=== PATIENT | female | born 1945 | race Hispanic/Latino ===

== ENCOUNTER 2018-10-23 17:45 | Observation (INO) | payer MEDICARE, OTHER ==
[2018-10-23] MEDS ORDERED: Ondansetron PF 4 MG/2 ML Vial ONE ×2 (18:44→20:17)
[2018-10-23] MEDS ORDERED: Morphine 4 MG/ML VIAL ONE (18:44)
[2018-10-23] MEDS ORDERED: Benzocaine 20% Spray 60 ML CAN ONE (19:03)
--- NOTE | 2018-10-23 19:59 | RAD ---
PORTABLE CHEST ONE VIEW: 10/23/2018 7:27 p.m. HISTORY: Periumbilical pain. FINDINGS: The heart size is normal. There is elevation of the right hemidiaphragm. No focal areas of consolid ation, pneumothoraces, or pleural effusions are seen. A nasogastric tube can be traced into the stom ach, with the tip directed laterally, in the projection of the gastric cardia. POS: [facility]
[2018-10-23] MEDS ORDERED: Ondansetron ODT 4 MG TAB PO PRN (21:07)
[2018-10-23] MEDS ORDERED: Ondansetron PF 4 MG/2 ML Vial IVP PRN (21:07)
[2018-10-23] MEDS ORDERED: Acetaminophen 325 MG TAB PO PRN (21:07)
[2018-10-23] MEDS ORDERED: Morphine 4 MG/ML VIAL SLOW IVP PRN (21:09)
[2018-10-23 21:19] VITALS: BMI 25.4
[2018-10-23] MEDS: Sodium Chloride 0.9% 1,000 ML IV SCH (21:30)
[2018-10-23] MEDS: Lactated Ringer's 1,000 ML IV SCH (21:46)
[2018-10-24 04:42] LABS: #Lymphocytes 1.8 thou/uL (1.20-3.40); #Monocytes 0.6 thou/uL (0.11-0.59); #Neutrophils 7.9 thou/uL (1.40-6.50); %Basophils 0.4 % (0.0-1.0); %Eosinophils 0.3 % (0.0-10.0); %Lymphocytes 17.3 % (21.0-51.0); %Neutrophils 75.9 % (42.0-75.0); Hemoglobin 12.7 g/dL (12.0-16.0); Mean Corpuscular HGB CONC 31.8 g/dL (32.0-36.0); Mean Corpuscular Hemoglobin 28.5 pg (27.0-31.0); Mean Corpuscular Volume 89.7 fL (78.0-98.0); Mean Platelet Volume 8.3 fL (7.4-10.4); Platelet Count 149 thou/uL (130-400); RBC Distribution Width 12.5 % (11.5-14.5); Red Blood Cell (RBC) Count 4.46 mill/uL (4.20-5.40); White Blood Cell (WBC) Count 10.4 thou/uL (4.8-10.8)
[2018-10-24 05:01] LABS: Anion Gap 11 mmol/L (10-20); BUN (Urea Nitrogen) 10 mg/dL (9.8-20.1); Calc. Creatinine Clearance 81 mL/min (70-130); Calcium 8.4 mg/dL (7.8-10.44); Carbon Dioxide 25 mmol/L (23-31); Chloride 103 mmol/L (98-107); Estimated GFR-MDRD 87; Glucose 113 mg/dL (83-110); Potassium 4.1 mmol/L (3.5-5.1); Sodium 135 mmol/L (136-145)
[2018-10-24] MEDS: Lactated Ringer's 1,000 ML IV SCH (06:23)
--- NOTE | 2018-10-24 07:09 | HP ---
PRIMARY CARE DOCTOR: Jozef Hale MD CODE STATUS: Full code. TIME OF EVALUATION: 8:20 p.m. CHIEF COMPLAINT: Abdominal pain. HISTORY OF PRESENT ILLNESS: This is a 73-year-old female patient with past medical history of multiple abdominal surgeries, GERD, and COPD, came to the hospital after having severe abdominal pain that was started since 7 a.m. and has gradually been getting worse, very severe during the day. The patient did not pass stools. The patient also had associated severe nausea and bilious vomiting. No clear triggers, only alleviated by medical treatment. REVIEW OF SYSTEMS: CONSTITUTIONAL: No fever, chills, or generalized weakness. RESPIRATORY: No cough, sputum production, or shortness of breath. CARDIOVASCULAR: No chest pain or palpitation. GASTROINTESTINAL: The patient has nausea, vomiting. No diarrhea. Not passing stools. Abdominal pain. MANAGEMENT MANAGER: No dizziness, headache, or feeling lightheaded. GENITOURINARY: No burning on urination. EXTREMITIES: No leg swelling. All other systems were reviewed and negative except for the findings mentioned above. PAST MEDICAL HISTORY: As mentioned in HPI. FAMILY HISTORY: Reviewed and non contributory for current presentation. PAST SURGICAL HISTORY: Appendectomy, cholecystectomy, and hysterectomy. SOCIAL HISTORY: No alcohol, no drugs. The patient is a former tobacco user. KNOWN ALLERGIES: To amoxicillin and Bactrim. REPORTED MEDICATIONS: 1. Prilosec. 2. Iron. 3. Albuterol sulfate. PHYSICAL EXAMINATION: VITAL SIGNS: On presentation, blood pressure 147/64, heart rate 56, respiratory rate was 14, temperature 98.1, oxygen saturation was 95% on room air. GENERAL APPEARANCE: The patient is alert, oriented, not in acute distress. HEENT: Eyes, normal conjunctivae. Moist oral mucosa. Anicteric. No JVD. RESPIRATORY: Bilateral air entry. No rales. No wheezes. Symmetric expansion. CARDIOVASCULAR: Normal rate, regular rhythm. No murmurs, no gallops. No edema. ABDOMEN: Soft, mildly distended. The patient has tenderness. MUSCULOSKELETAL: Baseline range of motion and strength. No tenderness. SKIN: Warm and intact. No pallor. No rash. No redness. Peripheral pulses are present. Capillary refill seems to be intact. NEUROLOGIC: No evidence of any new focal weakness. Baseline speech. Cranial nerves seems to be intact. PSYCHIATRIC: The patient is in good mood. No anxiety. Optimal judgment. IMAGING STUDIES: Chest x-ray was reviewed. The patient's heart size is normal with elevation of the right hemidiaphragm. No pneumonia or effusion. LABORATORY DATA: Labs were reviewed. The patient has white count of 7.1, hemoglobin 13, MCV 86, and platelet count 165. Chemistry; sodium 133, potassium 4.0, chloride 100, carbon dioxide 25, anion gap 12, BUN 11, creatinine 0.6, GFR 84, glucose 107. Magnesium was not done. Lactic acid 1.1. Troponin was negative. LFTs were negative. CT of abdomen and pelvis was done. The patient has partial small bowel obstruction with transition point seen within the central pelvis, material is seen within the loop of small bowel, greatest in loop of small bowel just proximal to the transition point. Evidence of cirrhosis. The portal veins as well as the splenic veins are patent. A small cyst with adjacent coarse cortical-based calcifications in superior pole of left kidney with area of scarring. A small amount of free fluid in the abdomen and pelvis. ASSESSMENT AND PLAN: The patient was placed in the hospital with following medical problems; 1. Small bowel obstruction as seen on the CAT scan maybe causing continuous nausea and bilious vomiting. The patient has received NG-tube. We will continue to treat symptomatically, our goal is to treat the patient medically. Hopefully, no need for any surgical intervention is warranted. 2. Severe abdominal pain, needing opioid medication for optimal control, will treat accordingly. 3. Urinary tract infection. It seems urinalysis is positive. We will treat the patient with Rocephin per urine cultures. 4. Deep venous thrombosis prophylaxis. 5. Intractable nausea and vomiting, treated with Zofran IV. Job ID: [id number] [facility]
[2018-10-24] MEDS: Enoxaparin Sodium 40 MG/0.4 ML SYRINGE SC SCH (08:37)
[2018-10-24] MEDS: Sodium Chloride 0.9% 1,000 ML IV SCH (08:38)
--- NOTE | 2018-10-24 10:24 | RAD ---
ABDOMEN 2 VIEWS: Date: 10/24/18 HISTORY: Small bowel follow up. COMPARISON: CT abdomen and pelvis prior day. FINDINGS: Satisfactory location of enteric tube. No dilated loops of large or small bowel. No free air under th e left hemidiaphragm on the upright view. Right hemidiaphragm is not well interrogated. Moderate degenerative changes mid lumbar spine. IMPRESSION: No evidence for bowel obstruction. No dilated loops of large or small bowel. POS: [facility]
[2018-10-24] MEDS ORDERED: MD-Gastroview 120 ML BOT ONE (11:05)
--- NOTE | 2018-10-24 16:28 | RAD ---
HISTORY: Small bowel obstruction. GASTROGRAFIN SMALL BOWEL FOLLOW THROUGH 10/24/18 Office Clerk Assistant radiograph demonstrates an NG tube in place. There appears to be calcified density over the upp er pole of the left kidney. A moderate amount of stool is seen in the colon. No definite evidence of small bowel distention is seen. The patient was given 2 cup of the gastrografin through the NG tube. One minute image obtained follow ed by 15 minute radiograph. After 15 minutes, there is complete opacification of the small bowel. Con trast is seen in the colon even at 15 minutes. No evidence of bowel obstruction or ileus seen. The all bowel diameter is within normal limits. No evidence of small bowel distention or masses seen. IMPRESSION: Normal small bowel follow through. POS: [facility]
--- NOTE | 2018-10-24 17:22 | PDOC.PN ---
- Subjective Encounter Start Date: 10/24/18 Encounter Start Time: 09:20 Pt seen for followup re: bowel obstruction. Says she feels better. Denies abdo pain. - Objective Resuscitation Status - Order Detail: 10/23/18 21:07 Resuscitation Status Routine Resuscitation Status: FULL: Full Resuscitation MAR Reviewed: Yes Vital Signs & Weight: Vital Signs (12 hours) Temp Pulse Resp BP Pulse Ox 10/24/18 16:54 97.6 F 83 18 157/84 H 92 L 10/24/18 11:38 99.8 F H 66 18 176/77 H 95 10/24/18 07:25 98.5 F 66 18 172/76 H 94 L Weight Weight 148 lb 4.8 oz I&O: 10/23/18 10/24/18 10/25/18 06:59 06:59 06:59 Intake Total 50 117 Output Total 650 Balance -600 117 Result Diagrams: 10/24/18 04:22 10/24/18 04:22 Additional Labs: labs reviewed by me Phys Exam - Physical Examination Constitutional: NAD HEENT: moist MMs NG tube Neck: supple Respiratory: clear to auscultation bilateral Cardiovascular: RRR Gastrointestinal: soft, non-tender, positive bowel sounds Neurological: moves all 4 limbs Psychiatric: normal affect Dx/Plan (1) Bowel obstruction Code(s): K56.609 - UNSP INTESTNL OBST, UNSP TO PARTIAL VERSUS COMPLETE OBST Status: Acute Comment: Improving (2) Hyponatremia Code(s): E87.1 - HYPO-OSMOLALITY AND HYPONATREMIA Status: Acute Comment: mild, likely asymptomatic. Recheck sodium level. (3) GERD (gastroesophageal reflux disease) Code(s): K21.9 - GASTRO-ESOPHAGEAL REFLUX DISEASE WITHOUT ESOPHAGITIS Status: Chronic Comment: stable (4) COPD (chronic obstructive pulmonary disease) Status: Chronic Comment: stable - Plan * . Review of Systems - Review of Systems Cardiovascular: negative: chest pain, palpitations, orthopnea, paroxysmal nocturnal dyspnea, edema, light headedness Gastrointestinal: Constipation. negative: Nausea, Vomiting, Abdominal Pain, Diarrhea, Melena, Hematochezia - Medications/Allergies Allergies/Adverse Reactions: Allergies Allergy/AdvReac Type Severity Reaction Status Date / Time amoxicillin Allergy Verified 10/23/18 21:45 Sulfa (Sulfonamide Allergy Verified 10/23/18 21:45 Antibiotics) sulfamethoxazole Allergy Verified 10/23/18 21:45 [From Bactrim] trimethoprim [From Bactrim] Allergy Verified 10/23/18 21:45 Medications: Current Medications Acetaminophen (Tylenol) 650 mg PO Q4H PRN PRN Reason: Headache/Fever/Mild Pain (1-3) Enoxaparin Sodium (Lovenox) 40 mg SC 0900 [facility] Last Admin: 10/24/18 08:37 Dose: 40 mg Sodium Chloride (Normal Saline 0.9%) 1,000 mls @ 75 mls/hr IV .[id number] [facility] Last Admin: 10/24/18 08:38 Dose: 1,000 mls Ondansetron HCl (Zofran Odt) 4 mg PO Q6H PRN PRN Reason: Nausea/Vomiting Ondansetron HCl (Zofran) 4 mg IVP Q6H PRN PRN Reason: Nausea/Vomiting
[2018-10-24] MEDS ORDERED: Acetaminophen 500 MG TAB PO PRN (18:26)
[2018-10-24] MEDS ORDERED: PROVENTIL INHALER 6.7 G (200 INHALATIONS) INH PRN (18:27)
--- NOTE | 2018-10-24 19:16 | HP ---
HISTORY OF PRESENT ILLNESS: Ms. Garcia is a 73-year-old female, who lives in [place] with her . She developed acute onset of central abdominal pain yesterday, sharp in nature. She had some nausea and vomiting after NG tube was attempted. She had a CAT scan suggesting a partial bowel obstruction. She is admitted with an NG tube. This morning, when consulted, I ordered repeat abdominal x-rays, which were nonspecific. Small-bowel follow-through obtained revealed rapid transit of Gastrografin into the small bowel and colon. She has had multiple bowel movements. NG tube has put out 250 mL overnight and 400 mL this morning. ALLERGIES: AMOXICILLIN AND BACTRIM. SOCIAL HISTORY: Tobacco, none for 20 years. Alcohol, none. 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 MEDICATIONS: 1. Tylenol. 2. Albuterol. 3. Omeprazole. 4. Ferrous sulfate. PAST SURGICAL HISTORY: Total abdominal hysterectomy, bilateral salpingo-oophorectomy, prior to that, appendectomy, open cholecystectomy. PAST MEDICAL HISTORY: Asthma. REVIEW OF SYSTEMS: Ten-point noncontributory. PHYSICAL EXAMINATION: GENERAL: NG tube in place. She is in no distress. She is alert and oriented. VITAL SIGNS: 5 feet 4 inches, 148 pounds, 25 BMI, 97.6, 83, 157/84. HEAD, EARS, EYES, NOSE, AND THROAT: Unremarkable. LUNGS: Clear to auscultation. CARDIAC: Regular rate and rhythm without murmur or gallop. ABDOMEN: Soft, nondistended, non-tympanitic. Bowel sounds present. NG tube in place. Recent bowel movements and flatus. EXTREMITIES: No edema. ASSESSMENT AND PLAN: Resolved bowel obstruction, partial, possibly NG tube removed. Diet can be advanced. She can be discharged home tomorrow. She is tolerating her diet. Follow up as needed. She has never had a colonoscopy at age 73, this could have been considered as an outpatient. Job ID: [id number]
[2018-10-25 04:26] LABS: #Eosinphils 0.2 thou/uL (0.0-0.7); #Lymphocytes 2.2 thou/uL (1.20-3.40); #Monocytes 0.5 thou/uL (0.11-0.59); #Neutrophils 3.1 thou/uL (1.40-6.50); %Basophils 0.8 % (0.0-1.0); %Eosinophils 2.7 % (0.0-10.0); %Lymphocytes 36.5 % (21.0-51.0); %Monocytes 7.9 % (0.0-10.0); %Neutrophils 52.1 % (42.0-75.0); Hemoglobin 12.1 g/dL (12.0-16.0); Mean Corpuscular HGB CONC 32.7 g/dL (32.0-36.0); Mean Corpuscular Hemoglobin 29.1 pg (27.0-31.0); Mean Corpuscular Volume 89.1 fL (78.0-98.0); Mean Platelet Volume 8.3 fL (7.4-10.4); Platelet Count 121 thou/uL (130-400); RBC Distribution Width 12.3 % (11.5-14.5); Red Blood Cell (RBC) Count 4.16 mill/uL (4.20-5.40)
[2018-10-25 04:43] LABS: Anion Gap 11 mmol/L (10-20); BUN (Urea Nitrogen) 10 mg/dL (9.8-20.1); Calc. Creatinine Clearance 77 mL/min (70-130); Calcium 8.3 mg/dL (7.8-10.44); Carbon Dioxide 25 mmol/L (23-31); Chloride 104 mmol/L (98-107); Estimated GFR-MDRD 82; Glucose 91 mg/dL (83-110); Potassium 3.6 mmol/L (3.5-5.1); Sodium 136 mmol/L (136-145)
[2018-10-25 08:19] VITALS: TEMP 98.1
[2018-10-25] MEDS ORDERED: Polyethylene Glycol 3350 17 GM Packet PO SCH (09:00)
[2018-10-25] MEDS: Enoxaparin Sodium 40 MG/0.4 ML SYRINGE SC SCH (10:06)
[2018-10-25 11:57] VITALS: BP 171/73
--- NOTE | 2018-10-25 16:35 | DIS ---
DATE OF ADMISSION: 10/23/2018 DATE OF DISCHARGE: 10/25/2018 PRIMARY CARE PROVIDER: Dr. Hale. DISCHARGE DIAGNOSIS: Partial small bowel obstruction. CONDITION OF THE PATIENT ON THE DAY OF DISCHARGE: Stable. I assessed Ms. Garcia on the day of discharge. She denies any chest pain or shortness of breath. Vital signs are stable. S1 and S2 are heard, regular. Lungs are clear to auscultation bilaterally. CONSULTATIONS DURING THIS HOSPITALIZATION: General Surgery, Dr. Tate. DISCHARGE MEDICATIONS: 1. ProAir RespiClick p.r.n. 2. Ferrous sulfate 325 mg daily. 3. Prilosec 20 mg daily. HOSPITAL COURSE: Ms. Garcia is a pleasant 73-year-old lady, who was admitted to [facility] on October 23, 2018, for partial small-bowel obstruction. Please refer to Dr. Donald's history and physical note dated October 24, 2018, for further details. Followup abdominal x-rays on October 24 did not show evidence for bowel obstruction. She also had small bowel x-ray series, which showed normal small-bowel follow-through. She was seen by General Surgery Service and has been cleared for discharge. On the day of discharge, she was tolerating diet well. She is being discharged home in a stable condition. Many thanks for allowing me to participate in your patient's care. Please feel free to contact me with any questions or concerns. DISCHARGE DESTINATION: Home. Job ID: [id number]
== END 2018-10-25 13:45 | disposition home or self-care (01) ==
LOC: ERS 17:45 → SURG A 19:45
PROVIDERS: ADMIT Hospitalist; ATTEND Hospitalist
DX: K56.600 Partial intestinal obstruction, unspecified as to cause (principal); N39.0 Urinary tract infection, site not specified; Z88.0 Allergy status to penicillin; Z88.2 Allergy status to sulfonamides; Z79.899 Other long term (current) drug therapy
CPT/HCPCS: 71045; 74019; 74250; 80048 ×2; 85025 ×2; 96361 ×3; 96372 ×2; 96374; 96375; 96376; 99285; G0378 ×2; 36415; J1650; J2270; J2405; Q9963

== ENCOUNTER 2019-06-19 10:13 | Day surgery (SDC) | payer MEDICARE, OTHER ==
[2019-06-19 11:25] LABS: Hemoglobin 11.5 g/dL (12.0-16.0); Mean Corpuscular HGB CONC 32.5 g/dL (32.0-36.0); Mean Corpuscular Hemoglobin 25.9 pg (27.0-31.0); Mean Corpuscular Volume 79.6 fL (78.0-98.0); Mean Platelet Volume 8.7 fL (7.4-10.4); Platelet Count 155 thou/uL (130-400); RBC Distribution Width 12.4 % (11.5-14.5); Red Blood Cell (RBC) Count 4.46 mill/uL (4.20-5.40); White Blood Cell (WBC) Count 6.2 thou/uL (4.8-10.8)
[2019-06-19 11:34] LABS: Anion Gap 11 mmol/L (10-20); BUN (Urea Nitrogen) 13 mg/dL (9.8-20.1); Calc. Creatinine Clearance 0 mL/min (70-130); Calcium 8.7 mg/dL (7.8-10.44); Carbon Dioxide 25 mmol/L (23-31); Chloride 106 mmol/L (98-107); Estimated GFR-MDRD 84; Glucose 98 mg/dL (83-110); Potassium 3.7 mmol/L (3.5-5.1); Sodium 138 mmol/L (136-145)
[2019-06-19] MEDS ORDERED: Fentanyl 100 MCG/2 ML VIAL ONE (11:58)
[2019-06-19] MEDS ORDERED: Promethazine HCl 25 MG/ML VIAL ONE (15:01)
--- NOTE | 2019-06-19 18:04 | RAD ---
RIGHT WRIST TWO FLUOROSCOPIC VIEWS: Indications: Open reduction internal fixation right wrist. Intraoperative imaging. FINDINGS: Intraoperative images show fixation of the distal radius with plate and screws along the volar surfac e. POS: [facility]
--- NOTE | 2019-06-19 19:08 | OP ---
DATE OF PROCEDURE: 06/19/2019 PREOPERATIVE DIAGNOSIS: Right intra-articular distal radius fracture. POSTOPERATIVE DIAGNOSIS: Right intra-articular distal radius fracture. PROCEDURE PERFORMED: Open reduction and internal fixation of right distal radius. ANESTHESIA: General. BUSINESS OFFICE ASSISTANT: Almas. TOURNIQUET TIME: 31 minutes at 250 mmHg. IMPLANTS: Synthes 2.4 mm variable angle LCP 2 column plate. COMPLICATIONS: None. DRAINS: None. SPECIMENS: None. OUTCOME: Near-anatomic alignment. INDICATION FOR PROCEDURE: The patient is a pleasant 73-year-old lady, status post ground level fall downstairs sustaining an intra-articular distal radius fracture that is unstable. After discussion with the patient including risks and benefits, we decided to proceed with open reduction and internal fixation of this fracture. Risks and benefits have been discussed. Risks include, but are not limited to bleeding, infection, nerve injury, wrist stiffness, wrist pain, hardware failure, malunion, nonunion, and loss of limb or life. The patient appears to understand and does wish to proceed. DESCRIPTION OF PROCEDURE: The patient was brought to the operating room and a time-out performed followed by induction of general anesthesia. After general anesthesia, the patient was positioned supine on the OR table with the right upper extremity held on an armboard. Next, the limb was exsanguinated with Esmarch bandage, tourniquet inflated to 250 mmHg. Next, a volar radial skin incision was made after skin was sharply incised. Dissection was carried down between the interval of the flexor carpi radialis and brachioradialis. The digital flexors were then swept toward the midline revealing the underlying pronator quadratus. The pronator quadratus was released off the radial border of the distal radius and reflected toward the midline. Next, the fracture was identified. This was reduced manually and checked under C-arm guidance. Next, a volar plate was applied to the distal radius and held in place with a single cortical screw proximal to the fracture line. This was checked under AP and lateral C-arm guidance for appropriateness of position. Next, a total of 4 locking screws were passed through the horizontal limb of the plate capturing the distal radial fragment. At the completion of this, 2 additional cortical screws were placed distally. At the completion of this, AP and lateral C-arm images were obtained that showed acceptable alignment of the fracture and appropriate positioning of the hardware. The wound was then irrigated with bulb syringe and closed in layers with 0 Vicryl deep, followed by 2-0 Vicryl and nylon for the skin. Xeroform gauze, Webril, and fiberglass splint were applied to the arm. Tourniquet was let down with total time of 31 minutes and then the patient was transferred to recovery room in stable condition. There were no complications. She tolerated the procedure well. Job ID: [id number]
== END 2019-06-19 15:53 | disposition home or self-care (01) ==
LOC: SDC 10:13
PROVIDERS: ATTEND Orthopaedic Surgery
PROC: 0PSH04Z Reposition Right Radius with Internal Fixation Device, Open Approach (ICD-10-PCS; principal; 2019-06-19)
PROC: 3E0T3BZ Introduction of Anesthetic Agent into Peripheral Nerves and Plexi, Percutaneous Approach (ICD-10-PCS; 2019-06-19)
DX: S52.571A Other intraarticular fracture of lower end of right radius, initial encounter for closed fracture (principal); G89.18 Other acute postprocedural pain; Z87.891 Personal history of nicotine dependence; Z79.899 Other long term (current) drug therapy; Z88.0 Allergy status to penicillin; Z88.2 Allergy status to sulfonamides; W10.8XXA Fall (on) (from) other stairs and steps, initial encounter
CPT/HCPCS: 76000; 80048; 85027; 93005; 93010; J0690; J2550; J3010

== ENCOUNTER 2019-08-05 20:11 | Observation (INO) | payer MEDICARE, OTHER ==
[2019-08-05] MEDS ORDERED: Midazolam HCl 2 mg/2 ml Vial ONE (21:19)
[2019-08-05] MEDS ORDERED: PROVENTIL INHALER 6.7 G (200 INHALATIONS) INH PRN (22:19)
[2019-08-05] MEDS ORDERED: Guaifenesin DM 100-10/5 ML UDCUP PO PRN (22:19)
[2019-08-05] MEDS ORDERED: Bisacodyl 10 MG SUPP PR PRN (22:19)
[2019-08-05] MEDS ORDERED: Acetaminophen 325 MG TAB PO PRN (22:19)
[2019-08-05] MEDS ORDERED: Senokot S 8.6-50 MG TAB PO PRN (22:19)
--- NOTE | 2019-08-06 00:16 | CON ---
DATE OF CONSULTATION: 08/05/2019 REQUESTING PHYSICIAN: Dr. Juan Zapata. HISTORY OF PRESENT ILLNESS: This is a 73-year-old woman. Patient was seen in the emergency room following an insidious onset abdominal pain started approximately at noon today. Patient described the pain as crampy without any radiation. She rated her pain at the time 9/10. She has self-induced vomiting to try to get relief. She was able to expel a clear gastric effluent. She did have diarrhea this morning. She was evaluated with a CT scan of the abdomen and pelvis, which suggested low-grade small-bowel obstruction, for which patient was transferred to [facility]. At the time of my evaluation, there had been approximately 6 hours since she was initially evaluated. At the time of my evaluation, she denies any abdominal pain, nausea, or vomiting. She denies any fevers or chills. She does not recall the last time she passed flatus. PAST MEDICAL HISTORY: Pertinent for asthma and partial small-bowel obstruction in October of 2018 without any surgical intervention. PAST SURGICAL HISTORY: Pertinent for , total abdominal hysterectomy with bilateral salpingo-oophorectomy, and open cholecystectomy. SOCIAL HISTORY: Patient has not smoked over 20 years now. Prior to that, she had approximately 10 pack cigarette smoking history. She denies any ethanol or illicit drug abuse. FAMILY HISTORY: Noncontributory for this patient's age. PRE-HOSPITAL MEDICATIONS: Include omeprazole 20 mg p.o. daily, Ventolin inhaler p.r.n. ALLERGIES: TO SULFA DRUGS, PENICILLIN, AND REPORTS GI UPSET WITH MORPHINE. REVIEW OF SYSTEMS: 10-point review of systems essentially unremarkable, except as stated in past medical history and chief complaint. PHYSICAL EXAMINATION: GENERAL: This reveals a 73-year-old normally developed woman, who is otherwise coherent, interactive, and appears stated age. Patient is alert and oriented x3 , appears to be in no acute distress at the time of my evaluation. VITAL SIGNS: Include blood pressure 154/91, pulse 77, respiratory rate is 18, temperature is 98.4 degrees Fahrenheit, and oxygen saturation 97% on room air. HEENT: Pupils equal, round, and reactive to light and accommodation. NECK: She has no jugular venous distention noted. HEART: Reveals regular rate and rhythm. No murmurs or gallops auscultated. LUNGS: Clear to auscultation bilaterally. Her breathing is regular and nonlabored. ABDOMEN: Soft, nontender, but obese. She clearly has no peritoneal signs on examination. Liver and spleen nonpalpable below costal margin. NEUROLOGIC: Reveals no focal deficits present. LABORATORY DATA: Laboratory findings which accompanying the patient included CBC with 8300 white blood cells, hemoglobin and hematocrit 10.5 and 35.8 respectively, and platelet count is 181,000. Metabolic profile; sodium 133, potassium 4.0, chloride is 104, bicarb is 20, BUN is 10, creatinine is 0.71, and glucose is 105. Total bilirubin is 0.5, AST and ALT are both normal at 27 and 22 respectively. I have personally reviewed the CT scan of the abdomen and pelvis, which reveals mildly dilated small bowel loop with no clear transition zone. There is gas within the colon and rectum. IMPRESSION: Acute partial small-bowel obstruction with resolved abdominal pain. RECOMMENDATION: There is no surgical indication for this patient at this time. I recommend a small bowel follow-through to clearly rule out small-bowel obstruction. In the interim, she may take a clear liquid diet. Thank you again, Dr. Zapata, for allowing me the opportunity to participate in the care of this patient. Job ID: [id number] [facility]
[2019-08-06 01:01] VITALS: BMI 24.2
[2019-08-06] MEDS: Sodium Chloride 0.9% 1,000 ML IV SCH ×2 (01:06→15:50)
[2019-08-06] MEDS ORDERED: Melatonin 3 MG TAB PO PRN ×2 (01:09→14:53)
[2019-08-06] MEDS ORDERED: hydrALAZINE 20 MG/ML VIAL SLOW IVP PRN (01:11)
[2019-08-06] MEDS: Fentanyl 100 MCG/2 ML VIAL SLOW IVP PRN ×2 (01:31→04:50)
[2019-08-06] MEDS: Ondansetron PF 4 MG/2 ML Vial IVP PRN ×2 (01:31→07:12)
--- NOTE | 2019-08-06 01:56 | HP ---
REASON FOR ADMISSION: Small-bowel obstruction. HISTORY OF PRESENT ILLNESS: Patient gives history of having a bandlike abdominal pain which started around noon. She thought this was gas and tried to drink a lot of water and tried to ambulate in the house. Around 3:00 p.m., she felt a little better but still had some pain. She told her that she did not want to sleep with this pain and went to [facility]. She has had a CAT scan done which showed partial small-bowel obstruction and the patient was transferred here. Patient also tried to induce vomiting once at home to see if this would relieve her pain. She also vomited once in the ER after receiving medications there. She has had a liquid stool this morning. She normally has liquid stools at least 2 times a day. She is currently passing flatus. Currently, has no abdominal pain. PAST MEDICAL AND SURGICAL HISTORY: History of prior small-bowel obstruction x1, which got resolved medically. GERD, COPD, x3, appendectomy, cholecystectomy, hysterectomy, and right wrist surgery. CURRENT MEDICATIONS: 1. Prilosec 20 mg daily. 2. Iron pills p.r.n. 3. Albuterol inhaler p.r.n. ALLERGIES: TO AMOXICILLIN, BACTRIM, CODEINE, SULFA AND TRIMETHOPRIM. PERSONAL HISTORY: Quit smoking 20 years ago, prior to which has smoked 1 pack a day for 10 years. Does not abuse alcohol or drugs. Lives with her . FAMILY HISTORY: Mother at the age of 65. She had history of NH. Father when he was 61. He apparently of complications during flooding of his house with medical issues. CODE STATUS: Full. Power of shear setter is her . REVIEW OF SYSTEMS: CONSTITUTIONAL: Negative for weight loss or gain, ability to conduct usual activities. SKIN: Negative for rash, itching. EYES: Negative for double vision, pain. ENT/MOUTH: Negative for nose bleeding, neck stiffness, pain, tenderness. CARDIOVASCULAR: Negative for palpitations, dyspnea on exertion, orthopnea. RESPIRATORY: Negative for shortness of breath, wheezing, cough, hemoptysis, fever or night sweats. GASTROINTESTINAL: Negative for poor appetite, abdominal pain, heartburn, nausea, vomiting, constipation, or diarrhea. GENITOURINARY: Negative for urgency, frequency, dysuria, nocturia. MUSCULOSKELETAL: Negative for pain, swelling. NEUROLOGIC/PSYCHIATRIC: Negative for anxiety, depression. ALLERGY/IMMUNOLOGIC: Negative for skin rash, bleeding tendency. PHYSICAL EXAMINATION: GENERAL: Patient is a 73-year-old female who is currently not in any acute distress. VITAL SIGNS: Blood pressure 154/90, pulse 76 per minute, respiratory rate 18 per minute, temperature 98.4 degrees Fahrenheit, and saturating 97% on room air. NECK: Supple. No elevated JVD. HEENT: Eyes; extraocular muscles intact. Pupils reacting to light. Oral cavity, mucous membranes are moist. No exudates or congestion. CARDIOVASCULAR: S1, S2 heard. Regular rhythm. RESPIRATORY: Air entry 2+, bilateral. No rales or rhonchi. ABDOMEN: Soft. Bowel sounds heard. No tenderness, rigidity, or guarding. EXTREMITIES: No peripheral edema or calf tenderness. VASCULAR SYSTEM: Peripheral pulses 1+, bilateral. No ischemic ulcerations or gangrene. CENTRAL NERVOUS SYSTEM: No gross focal deficits noted. Patient is alert, awake, and oriented. PSYCHIATRIC: Patient's mood is euthymic. No hallucinations or delusions. LABORATORY DATA: White count of 8.3, H and H 10 and 35, platelet count 181, MCV is 81 with 76% neutrophils. Serum bicarb 20, BUN 10, creatinine 0.7, serum glucose 105, AST and ALT within normal limits, alk phos 127, albumin 3.8. Troponin I 0.01. UA is negative. IMAGING: CT abdomen and pelvis done at 4:50 p.m. showed findings of low-grade partial small-bowel obstruction. Signs of hepatic cirrhosis seen. CLINICAL IMPRESSION AND PLAN: Patient will be under observation on med/surg floor for partial small-bowel obstruction. Her abdomen is benign at present. She has had a bowel movement in the morning. She normally passes two stools a day. She will be on a heart-healthy diet. A small bowel follow-through x-ray has been ordered by Dr. White. We will continue her on normal saline at 70 mL/h. Albuterol inhaler q.6 hourly p.r.n. we will obtain labs in the morning. If patient were to pass stool and her small-bowel follow-through x-ray is clear, patient will be discharged home. Dr. White for General Surgery has evaluated the patient in the ER. Job ID: [id number]
[2019-08-06 05:18] LABS: #Lymphocytes 1.3 thou/uL (1.20-3.40); #Monocytes 0.5 thou/uL (0.11-0.59); #Neutrophils 5.4 thou/uL (1.40-6.50); %Basophils 0.5 % (0.0-1.0); %Eosinophils 0.2 % (0.0-10.0); %Lymphocytes 18.1 % (21.0-51.0); %Monocytes 6.8 % (0.0-10.0); %Neutrophils 74.4 % (42.0-75.0); Hemoglobin 10.8 g/dL (12.0-16.0); Mean Corpuscular HGB CONC 32.3 g/dL (32.0-36.0); Mean Corpuscular Volume 77.3 fL (78.0-98.0); Mean Platelet Volume 8.6 fL (7.4-10.4); Platelet Count 131 thou/uL (130-400); RBC Distribution Width 13.6 % (11.5-14.5); Red Blood Cell (RBC) Count 4.34 mill/uL (4.20-5.40); White Blood Cell (WBC) Count 7.3 thou/uL (4.8-10.8)
[2019-08-06 05:37] LABS: Anion Gap 9 mmol/L (10-20); BUN (Urea Nitrogen) 7 mg/dL (9.8-20.1); Calc. Creatinine Clearance 88 mL/min (70-130); Calcium 8.2 mg/dL (7.8-10.44); Carbon Dioxide 23 mmol/L (23-31); Chloride 106 mmol/L (98-107); Estimated GFR-MDRD Greater than 90; Glucose 113 mg/dL (83-110); Potassium 3.8 mmol/L (3.5-5.1); Sodium 134 mmol/L (136-145)
[2019-08-06] MEDS ORDERED: Fentanyl 100 MCG/2 ML VIAL SLOW IVP SCH (06:30)
[2019-08-06] MEDS: Pantoprazole 40 MG GRANULES PACKET PO SCH (08:22)
[2019-08-06] MEDS: Enoxaparin Sodium 40 MG/0.4 ML SYRINGE SC SCH (08:34)
[2019-08-06] MEDS ORDERED: Non-Formulary Item 1 EACH (Omeprazole Magnesium [Prilosec] 20 MG) PO SCH (09:00)
--- NOTE | 2019-08-06 10:51 | RAD ---
Gastrografin small bowel follow-through INDICATION: Small bowel obstruction COMPARISON: None. FINDINGS: Merchandising Team Lead: Merchandising Team Lead images demonstrate dilated loops of small bowel within the central abdomen. Small bowel follow-through: With administration of Gastrografin contrast, there is migration of the G astrografin contrast through moderately dilated loops of small bowel within the central abdomen with eventual emptying into the colon and rectum by the 3.5 hour time earlene. IMPRESSION: Moderate grade partial small bowel obstruction.
[2019-08-06] MEDS: Acetaminophen 500 MG TAB PO SCH ×3 (11:38→21:12)
--- NOTE | 2019-08-06 14:14 | PRG ---
DATE OF SERVICE: 08/06/2019 SUBJECTIVE: The patient remains on the surgical floor. The patient does report vomiting x1 and having 2 bowel movements which were loose in nature yesterday. The patient continues to have some abdominal pain. OBJECTIVE: VITAL SIGNS: Blood pressure 171/80, pulse 80, respirations 18, SpO2 of 98% on room air, temperature 97.6. HEENT: Unremarkable. LUNGS: Good inspiratory and expiratory effort. Nonlabored. CARDIOVASCULAR: Regular rate. Regular rhythm. ABDOMEN: Soft, nontender, and nondistended. EXTREMITIES: Moves all extremities, neurovascularly intact. NEUROLOGIC: No focal deficits. LABORATORY DATA: WBC 7.3, RBC 4.34, hemoglobin 10.3, hematocrit 33.6. Sodium 134, potassium 3.8, chloride 106, BUN 7, creatinine 0.62, estimated GFR greater than 90, glucose 113. IMPRESSION: Acute partial small bowel obstruction with resolved abdominal pain. RECOMMENDATION: No surgical indication at this time. Pending small-bowel follow-through to clearly rule out small bowel obstruction. Continue diet as tolerated. The patient was examined by Dr. White during morning rounds. We will schedule the patient's Tylenol for pain. Job ID: [id number]
--- NOTE | 2019-08-06 14:48 | PDOC.HOSPP ---
- Subjective Encounter Date: 08/06/19 Encounter Time: 14:45 Subjective: f/u for SBO with SBFT showing moderate grade partial SBO. Some nausea, tolerating small amount of clear liquids. + loose stools this pm. - Objective Vital Signs & Weight: Vital Signs (12 hours) Temp Pulse Resp BP BP Pulse Ox 08/06/19 11:30 97.4 F L 82 18 97/54 L 93 L 08/06/19 09:20 76 178/83 H 08/06/19 08:00 97.6 F 80 18 171/80 H 98 08/06/19 04:35 169/81 H 08/06/19 04:19 98.2 F 74 16 181/75 H 93 L Weight Weight 150 lb I&O: 08/05/19 08/06/19 08/07/19 06:59 06:59 06:59 Intake Total 4 30 Balance 4 30 Result Diagrams: 08/06/19 04:58 08/06/19 04:58 Additional Labs: Laboratory Tests 08/05/19 17:05 Hgb 10.5 L Radiology Reviewed by me: Yes (SBFT - mod, partial SBO) Hospitalist ROS - Medication Medications: Active Medications Generic Name Dose Route Start Last Admin Trade Name Freq PRN Reason Stop Dose Admin Acetaminophen 1,000 mg 08/06/19 10:00 08/06/19 11:38 Tylenol PO 1,000 mg Q6H ALEX Administration Enoxaparin Sodium 40 mg 08/06/19 09:00 08/06/19 08:34 Lovenox SC 40 mg 0900 ALEX Administration Hydralazine HCl 10 mg 08/06/19 01:11 08/06/19 09:20 Apresoline SLOW IVP 10 mg Q4H PRN Administration SBP > 180 and HR < 70 Sodium Chloride 1,000 mls @ 70 mls/hr 08/05/19 22:19 08/06/19 01:06 Normal Saline 0.9% IV 1,000 mls .[id number] ALEX Administration Melatonin 3 mg 08/06/19 01:09 08/06/19 01:30 Melatonin PO 3 mg HS PRN Administration Insomnia Ondansetron HCl 4 mg 08/05/19 22:19 08/06/19 07:12 Zofran IVP 4 mg Q6H PRN Administration Nausea/Vomiting Pantoprazole Sodium 40 mg 12/01/19 09:00 08/06/19 08:22 Protonix PO Not Given DAILY ALEX Sodium Chloride 10 ml 08/06/19 09:00 08/06/19 08:23 Flush - Normal Saline IVF Not Given Q12HR ALEX - Exam General Appearance: NAD Eye: PERRL, anicteric sclera ENT: normocephalic atraumatic, no oropharyngeal lesions Neck: supple, symmetric, no JVD, no thyromegaly, no lymphadenopathy Heart: RRR, no gallops, no rubs, normal peripheral pulses Respiratory: CTAB, no wheezes, no rales, no ronchi Gastrointestinal: soft, no palpable masses, tender to palpation, diminished bowl sounds Extremities: no cyanosis, no clubbing, no edema Skin: normal turgor, no lesions Neurological: cranial nerve grossly intact, no new deficit Musculoskeletal: normal tone, normal strength Psychiatric: normal affect, A&O x 3 Hosp A/P (1) SBO (small bowel obstruction) Code(s): K56.609 - UNSP INTESTNL OBST, UNSP TO PARTIAL VERSUS COMPLETE OBST Status: Acute Plan: Continue conservative mgmt, clear liquids, serial abd exams (2) Hyponatremia Code(s): E87.1 - HYPO-OSMOLALITY AND HYPONATREMIA Status: Acute Plan: Likely due to decreased po intake, continue IV NS (3) COPD (chronic obstructive pulmonary disease) Status: Chronic Plan: No exacerbation (4) GERD (gastroesophageal reflux disease) Code(s): K21.9 - GASTRO-ESOPHAGEAL REFLUX DISEASE WITHOUT ESOPHAGITIS Status: Chronic Plan: Continue Omeprazole - Plan plan discussed w/ family, out of bed/ambulate, DVT proph w/SCDs Stable overall Continue clear liquids IVF with NS OOB/ambulate Appreciate Gen Surgery assistance Likely home in 24h
--- NOTE | 2019-08-07 02:57 | PRG ---
DATE OF SERVICE: 08/07/2019 SUBJECTIVE: The patient is currently on the surgical floor. This patient we are seeing in consultation for likely partial small bowel obstruction. The patient did undergo small-bowel follow-through today that showed moderate grade partial small-bowel obstruction since her study. She has had multiple bowel movements. She denies nausea or vomiting. Her pain is controlled and she has started a regular diet. OBJECTIVE: VITAL SIGNS: Stable. GENERAL: The patient appears comfortable. ABDOMEN: Soft, flat, nontender with active bowel sounds. Again, vital signs are stable and she is afebrile. ASSESSMENT AND PLAN: 1. Status post acute partial small-bowel obstruction, resolved. 2. Plan from a surgical standpoint, there is no surgical indication at this time and she may be discharged as deemed by the medical team. We will sign off at this time. Job ID: [id number]
[2019-08-07 03:29] VITALS: TEMP 98.3
[2019-08-07] MEDS: Acetaminophen 500 MG TAB PO SCH ×2 (04:55→09:19)
[2019-08-07] MEDS: Sodium Chloride 0.9% 1,000 ML IV SCH (04:55)
[2019-08-07] MEDS: Pantoprazole 40 MG GRANULES PACKET PO SCH (09:19)
[2019-08-07] MEDS: Enoxaparin Sodium 40 MG/0.4 ML SYRINGE SC SCH (09:19)
[2019-08-07 11:32] VITALS: BP 138/86
--- NOTE | 2019-08-07 12:36 | PRG ---
DATE OF SERVICE: 08/07/2019 SUBJECTIVE: Ms. Garcia is a 73-year-old woman, who was admitted on 08/05/2019, with abdominal pain and suspected small bowel obstruction. Small-bowel follow-through was obtained, which revealed no obstruction. The patient has been tolerating diet since yesterday. This morning, she reports no abdominal pain. She is having normal bowel and urinary function. OBJECTIVE: VITAL SIGNS: This morning include blood pressure 153/72, pulse 72, respiratory rate 16, temperature 98.3 degrees Fahrenheit, oxygen saturation 97% on room air. ABDOMEN: Soft, nontender, nondistended. IMPRESSION: Resolved acute small-bowel obstruction. RECOMMENDATIONS: 1. No surgical indication at this time. 2. The patient may be discharged at the discretion of the Primary Service. Job ID: [id number]
--- NOTE | 2019-08-08 06:02 | DIS ---
DATE OF ADMISSION: 08/06/2019 DATE OF DISCHARGE: 08/07/2019 DISCHARGE DIAGNOSES: 1. Partial small bowel obstruction, resolving with conservative management. 2. Hyponatremia, mild. 3. Chronic obstructive pulmonary disease without exacerbation, stable. 4. Gastroesophageal reflux disease, stable. CONSULTATIONS: Dr. White with General Surgery Service. PERTINENT LABORATORY AND X-RAY FINDINGS: Sodium 134, creatinine 0.62. CBC showed hemoglobin of 11. CT of the abdomen and pelvis dated 08/05/2019, showed low-grade partial small bowel obstruction. Hepatic cirrhosis noted. Small bowel follow-through dated 08/06/2019, showed moderate grade partial small bowel obstruction. HOSPITAL COURSE: The patient was observed on the surgical galan after initially presenting with increasing abdominal pain with associated nausea and vomiting. CT imaging of the abdomen was performed showing evidence of partial small bowel obstruction at which point patient was placed on IV fluids and n.p.o. status. The patient was evaluated by the General Surgery Service with recommendations for conservative management. Small bowel follow-through was performed showing persistence of partial small-bowel obstruction. At which point, the patient remained under observation and serial abdominal exams. Within 24 hours, the patient was passing liquid stool and tolerating clear liquids without complication. Abdominal pain had resolved and the patient remained clinically stable. Current recommendations are for general medical management and no surgical intervention. I have examined the patient at the time of discharge and discussed followup instructions. The patient verbalized understanding and agreement, ready for discharge on 08/07/2019. DISCHARGE MEDICATIONS: 1. Ferrous sulfate 325 mg p.o. daily. 2. Melatonin 3 mg p.o. at bedtime p.r.n. 3. Omeprazole 20 mg p.o. daily. 4. Ventolin HFA 2 puffs inhaled q.6 hours p.r.n. FOLLOWUP: Patient followup with Dr. Jozef Hale within 7 days of discharge. CONDITION ON DISCHARGE: Stable. ACTIVITY: Ad-jessica. DIET: Regular. CODE STATUS: Full. DISPOSITION: To home 08/07/2019. Job ID: [id number]
== END 2019-08-07 15:30 | disposition home or self-care (01) ==
LOC: ERS 20:11 → SURG B 08-06 00:44
PROVIDERS: ADMIT Internal Medicine; ATTEND Internal Medicine
DX: K56.600 Partial intestinal obstruction, unspecified as to cause (principal); E87.1 Hypo-osmolality and hyponatremia; J44.9 Chronic obstructive pulmonary disease, unspecified; K21.9 Gastro-esophageal reflux disease without esophagitis; Z87.891 Personal history of nicotine dependence; Z79.899 Other long term (current) drug therapy; Z88.0 Allergy status to penicillin; Z88.2 Allergy status to sulfonamides; Z88.5 Allergy status to narcotic agent; Z88.8 Allergy status to other drugs, medicaments and biological substances
CPT/HCPCS: 74250; 80048; 85025; 96360; 96361 ×2; 96374; 96375; 96376; 97139; 99284; G0378 ×2; 36415; J0360; J1650; J2250; J2405; J3010

== ENCOUNTER 2020-01-03 10:09 | Inpatient (IN) | payer MEDICARE, OTHER ==
[2020-01-03] MEDS ORDERED: Morphine 4 MG/ML VIAL ONE (11:09)
[2020-01-03] MEDS ORDERED: Ondansetron PF 4 MG/2 ML Vial ONE (11:10)
[2020-01-03 11:20] LABS: #Lymphocytes 1.3 thou/uL (1.20-3.40); #Monocytes 0.9 thou/uL (0.11-0.59); #Neutrophils 8.6 thou/uL (1.40-6.50); %Basophils 0.2 % (0.0-1.0); %Eosinophils 0.1 % (0.0-10.0); %Lymphocytes 11.6 % (21.0-51.0); %Monocytes 8.1 % (0.0-10.0); Hemoglobin 10.4 g/dL (12.0-16.0); Mean Corpuscular HGB CONC 30.5 g/dL (32.0-36.0); Mean Platelet Volume 11.3 fL (7.4-10.4); Platelet Count 184 thou/uL (130-400); RBC Distribution Width 14.6 % (11.5-14.5); Red Blood Cell (RBC) Count 4.74 mill/uL (4.20-5.40); White Blood Cell (WBC) Count 10.8 thou/uL (4.8-10.8)
[2020-01-03] MEDS ORDERED: Iopamidol-370 76% 500 ML 1 ML ONE (11:35)
[2020-01-03 11:39] LABS: ALT (SGPT) 28 U/L (8-55); AST (SGOT) 36 U/L (5-34); Albumin 3.9 g/dL (3.4-4.8); Alkaline Phosphatase 156 U/L (40-110); Anion Gap 12 mmol/L (10-20); BUN (Urea Nitrogen) 17 mg/dL (9.8-20.1); Bilirubin, Total 0.9 mg/dL (0.2-1.2); Calc. Creatinine Clearance 0 mL/min (70-130); Carbon Dioxide 27 mmol/L (23-31); Chloride 98 mmol/L (98-107); Estimated GFR-MDRD 71; Globulin 3.9 g/dL (2.4-3.5); Glucose 122 mg/dL (83-110); Hypochromia SLIGHT = 6-15 cells (100X) (0-5/hpf); Lipase 48 U/L (8-78); MDiff Complete? YES; Microcytosis MODERATE=15-30 cells (100X) (0-5/hpf); Platelet Morphology Comment Appears Adequate; Polychromasia SLIGHT = 2-3 cells (100X) (0-2/hpf); Potassium 4.3 mmol/L (3.5-5.1); Protein, Total 7.8 g/dL (6.0-8.3); Sodium 133 mmol/L (136-145)
[2020-01-03] MEDS ORDERED: MD-Gastroview 120 ML BOT ONE (11:45)
--- NOTE | 2020-01-03 12:19 | CT ---
CT ABDOMEN WITH CONTRAST CT PELVIS WITH CONTRAST: DATE: 01/03/2020 HISTORY: 74-year-old female with generalized abdominal pain, nausea, vomiting, and constipation. COMPARISON: 08/05/2019 TECHNIQUE: IV injection of iodinated contrast media: administered. Oral contrast media:Not administered FINDINGS: Once again, there is small bowel dilation, but in a different pattern than on the prior CT. There are multiple nondilated loops of jejunum in the upper abdomen, and a greater amount of mildly dilated small bowel loops throughout the upper, mid, and lower abdomen, including pelvis, with air-fluid leve ls. The dilation is up to 3 cm caliber. There is Fecalization of distal ileum, including terminal ileum. The entire colon is collapsed. New finding of a small amount of perihepatic free fluid. Nodula r margins of liver are consistent with cirrhosis. No splenomegaly. Small sliding hiatal hernia. No major pathology identified involving abdominal aorta, adrenals, right kidney, spleen, or pancreas. A greater volume of moderate amount of free fluid throughout the pelvic cavity. No pneumoperitoneum. Again noted is the left renal upper pole parenchymal defect containing dystrophic calcification. Again noted are the nonspecific groundglass densities at the bases of the bilateral lower lobes, nons pecific, and similar in appearance. IMPRESSION: 1) evidence for at least partial bowel obstruction, apparently at the ileocecal valve. 2) small volume of ascites, greater than previously. 3) hepatic cirrhosis. 4) small sliding hiatal hernia. 5) left renal upper pole focal scar and dystrophic calcification. 6) groundglass changes at lung bases, nonspecific, and similar to 08/05/2019.
[2020-01-03 13:05] LABS: Bilirubin Negative (Negative); Blood, Urine Negative (Negative); Clarity Clear (Clear); Glucose, Urine (Dipstick) Normal (Negative); Leukocyte Negative Leu/uL (Negative); Nitrite Negative (Negative); Protein, Urine (Dipstick) 20 mg/dL (Neg-Trace); Urobilinogen Normal mg/dL (Less than 2)
[2020-01-03] MEDS ORDERED: Non-Formulary Item 1 EACH (Ventolin Hfa Inhaler [Ventolin Hfa Inhaler] 2 PUFF) INH PRN (13:40)
[2020-01-03] MEDS ORDERED: Morphine 2 MG/ML SYRINGE SLOW IVP PRN (13:40)
[2020-01-03] MEDS ORDERED: Ondansetron PF 4 MG/2 ML Vial IVP PRN (13:40)
[2020-01-03] MEDS ORDERED: Bisacodyl 10 MG SUPP PR PRN (13:40)
[2020-01-03] MEDS ORDERED: Acetaminophen 325 MG TAB PO PRN (13:40)
[2020-01-03] MEDS ORDERED: Acetaminophen 650 MG Suppository PR PRN (13:40)
[2020-01-03] MEDS ORDERED: Albuterol Sulfate 2.5 mg/3 ml Neb NEB PRN (13:48)
[2020-01-03] MEDS ORDERED: Benzocaine 20% Spray 60 ML CAN ONE (14:19)
--- NOTE | 2020-01-03 14:54 | HP ---
REASON FOR ADMISSION: Partial small-bowel obstruction. HISTORY OF PRESENTING ILLNESS: The patient gives history of having upper quadrant bilateral pain, which was colicky in nature, and 5/10 to 6/10 in intensity. She also felt nauseous and vomited nearly 3 times. This has been ongoing for last 2 days, and she thought it will get resolved, but finally got worse and made it to emergency room. The patient has had prior history of small-bowel obstructions in the past and has had nearly 2 episodes of this which has gotten resolved with medical management. Currently, has no complaints of chest pain, palpitation, or fever. PAST MEDICAL AND SURGICAL HISTORY: History of prior small-bowel obstruction x2, which was managed medically and has gotten resolved; COPD; GERD; x3; appendectomy; cholecystectomy; hysterectomy; and right wrist surgery. CURRENT MEDICATIONS: The patient is on: 1. Prilosec 20 mg daily. 2. Ferrous sulfate 325 mg daily. 3. Albuterol inhaler q.6 hourly p.r.n. 4. Lorazepam 0.5 mg one tablet q.6 hourly p.r.n. 5. Cholestyramine powder p.r.n. for diarrhea. ALLERGIES: TO AMOXICILLIN, BACTRIM, CODEINE, AND SULFA. PERSONAL HISTORY: Quit smoking more than 21 years ago. Does not abuse alcohol or drugs. Lives with her . FAMILY HISTORY: Mother at the age of 65 from [place]. Father at the age of 61 from complications from medical issues during flooding of his house. CODE STATUS: Full. Power of mergers and acquisitions attorney is her . REVIEW OF SYSTEMS: CONSTITUTIONAL: Negative for weight loss or gain, ability to conduct usual activities. SKIN: Negative for rash, itching. EYES: Negative for double vision, pain. ENT/MOUTH: Negative for nose bleeding, neck stiffness, pain, tenderness. CARDIOVASCULAR: Negative for palpitations, dyspnea on exertion, orthopnea. RESPIRATORY: Negative for shortness of breath, wheezing, cough, hemoptysis, fever or night sweats. GASTROINTESTINAL: Negative for poor appetite, abdominal pain, heartburn, nausea , vomiting, constipation, or diarrhea. GENITOURINARY: Negative for urgency, frequency, dysuria, nocturia. MUSCULOSKELETAL: Negative for pain, swelling. NEUROLOGIC/PSYCHIATRIC: Negative for anxiety, depression. ALLERGY/IMMUNOLOGIC: Negative for skin rash, bleeding tendency. PHYSICAL EXAMINATION: GENERAL: The patient is a 74-year-old female, who is currently not in any acute distress. VITAL SIGNS: Blood pressure 100/60, pulse 84 per minute, respiratory rate 18 per minute, temperature 98.3 degrees Fahrenheit, saturating 98% on room air. NECK: Supple. No elevated JVD. HEENT: Eyes; extraocular muscles intact. Pupils reacting to light. Oral cavity, mucous membranes are dry. No exudates or congestion. CARDIOVASCULAR: S1 and S2 heard. Regular rhythm. RESPIRATORY: Air entry 2+ bilateral. No rales or rhonchi. ABDOMEN: Mildly distended. No tenderness or rigidity. Bowel sounds are hyperactive. EXTREMITIES: No peripheral edema or calf tenderness. VASCULAR: Peripheral pulses 2+ bilateral. No ischemic ulcerations or gangrene. CENTRAL NERVOUS SYSTEM: No gross focal deficits noted. The patient is alert, awake, and oriented well. PSYCHIATRIC: The patient's mood is euthymic. No hallucinations or delusions. LABORATORY AND DIAGNOSTIC DATA: CT of the abdomen and pelvis with contrast done shows findings of partial bowel obstruction at the ileocecal valve. There is a small volume ascites seen. Cirrhotic features seen. Small sliding hiatal hernia. White count of 10, H and H 10 and 34, platelet count 184, MCV 72 with 80% neutrophils. Sodium 133, serum bicarb 27, BUN 17, creatinine 0.7, serum glucose 122, AST 36, ALT 28, alkaline phosphatase 156, total bilirubin 0.9, albumin is 48. CLINICAL IMPRESSION AND PLAN: The patient will be admitted to medical floor for partial small-bowel obstruction. She will be kept n.p.o. We will gently hydrate her with lactated Ringer's at 75 mL/hour, morphine p.r.n. for pain, Zofran p.r.n. for nausea, albuterol inhaler q.[address] White has been consulted from ER. The patient will be slowly weaned into oral diet as and when her symptoms improve. Likely, she will have a small bowel follow-through in the morning. We will continue to closely monitor her on medical floor. Job ID: [id number] MTDD
--- NOTE | 2020-01-03 15:09 | RAD ---
Exam: Chest one view HISTORY:NG tube placement Comparison: 10/23/2018 FINDINGS: Lines and tubes: Nasogastric tube terminates in the epigastric region. Cardiac silhouette: Normal Aorta: Unremarkable Pulmonary vessels: Normal Costophrenic angles: Clear LUNGS: No masses or consolidation. Pneumothorax: None Osseous abnormalities: None IMPRESSION: No acute cardiopulmonary process.
[2020-01-03 16:51] VITALS: BMI 23.7
[2020-01-03] MEDS: Lactated Ringer's 1,000 ML IV SCH (18:46)
--- NOTE | 2020-01-03 21:25 | RAD ---
GASTROGRAFIN SMALL BOWEL EXAM: 01/03/20 INDICATIONS: Small bowel obstruction. FINDINGS: Baling Machine Tender view shows dilated loops of small bowel in the mid abdomen. There is some scattered gas seen in a nondilated colon. There is contrast filling the urinary bladder. Patient was given gastrografin via an NG tube and sequential images were obtained out to 3.5 hours. FINDINGS: the images show dilatation of the proximal and mid small bowel. Distal ileum and colon are not opacif ied even at 3.5 hours. IMPRESSION: Findings consistent with small bowel obstruction in the mid to distal small bowel. POS: AGW
[2020-01-03] MEDS: Famotidine/PF 20 mg/2ml Vial SLOW IVP SCH (21:31)
[2020-01-04] MEDS: Lactated Ringer's 1,000 ML IV SCH ×2 (06:00→06:13)
--- NOTE | 2020-01-04 06:01 | CON ---
DATE OF CONSULTATION: REQUESTING PHYSICIAN: Dr. Quincy Sow. CONSULTING PHYSICIAN: Dr. Gerry White. REASON FOR CONSULTATION: Small bowel obstruction. HISTORY OF PRESENT ILLNESS: Ms. Garcia is a 74-year-old female, who presented to the ED for evaluation of abdominal pain. The patient reports the patient experienced abdominal pain two days ago. Her abdominal pain comes and goes, generalized. She also experienced nausea and vomiting. Her last oral intake is yesterday lunch. After that, she was not able to hold any food or drink. The patient reports she was not able to have bowel. However, she is able to pass some gas, last time yesterday afternoon. The patient denies any fever or chill, denies any change of vision or weakness. REVIEW OF SYSTEMS: Noncontributory except as per HPI. PAST MEDICAL HISTORY: Gastroesophageal reflux. The patient has COPD, using inhaler p.r.n. PAST SURGICAL HISTORY: gallbladder removed, hysterectomy, three times , appendectomy. The patient reports this is the 3rd time she experienced a small bowel obstruction. The last time it was one year ago, resolved by itself. SOCIAL HISTORY: The patient lives at home with family. Denies alcohol. Denies smoking. Denies drug use. PHYSICAL EXAMINATION: GENERAL: Currently, the patient is lying in bed comfortably with no acute respiratory distress. VITAL SIGNS: Heart rate 83, temperature 98.3, blood pressure 101/61, O2 saturation 98% on room air, and respiratory rate is 18. LUNGS: Clear bilaterally. HEART: Regular rate and rhythm. ABDOMEN: Soft. No rebound. No guarding. Medium distended. Bowel sounds hyperactive. EXTREMITIES: Neurovascularly intact x4. NEUROLOGY: No focal neurology deficits. LABORATORY DATA: Showed white count of 10.8, hemoglobin 10.4. Chemistry; sodium 133, potassium 4.3, creatinine 0.79, AST 36, ALT 28, glucose 122, lipase is 48. ASSESSMENT: 1. Suspicion of small bowel obstruction. 2. History of gallbladder removal, appendectomy, hysterectomy, . 3. History of chronic obstructive pulmonary disease, controlled. PLAN: Continue NG tube, bowel rest, pain control, DVT prophylaxis. The patient will have a small bowel follow-through with Gastrografin to assess the level of small bowel obstruction. General Surgery will be following, and Dr. White will make decision after small bowel follow-through result. Thank you, Dr. Sow, for inviting us to consult on this patient. Job ID: [id number]
[2020-01-04 06:22] LABS: Anion Gap 8 mmol/L (10-20); BUN (Urea Nitrogen) 24 mg/dL (9.8-20.1); Calc. Creatinine Clearance 71 mL/min (70-130); Calcium 8.7 mg/dL (7.8-10.44); Carbon Dioxide 33 mmol/L (23-31); Chloride 102 mmol/L (98-107); Estimated GFR-MDRD 82; Glucose 129 mg/dL (83-110); Potassium 3.4 mmol/L (3.5-5.1); Sodium 140 mmol/L (136-145)
[2020-01-04] MEDS ORDERED: Potassium Phosphate 15 MMOL in Sodium Chloride 0.9% 250 ML 250 ML IVPB SCH (07:15)
--- NOTE | 2020-01-04 07:25 | PRG ---
DATE OF SERVICE: 01/03/2020 SUBJECTIVE: The patient is currently on the Medicine floor. She is a patient we are seeing in consultation for suspected partial small bowel obstruction. At the time of my visit, she has completed just over 2 hours of her small-bowel follow-through. She complains of some nausea, but no emesis at this time. She feels that she may have had some flatus, but has no bowel movements. Denies abdominal pain at this time. OBJECTIVE: VITAL SIGNS: Stable. The patient is afebrile. GENERAL: The patient is resting comfortably in bed. She just returned to bed from attempting to use the bathroom. She is awake, alert, conversant, appropriate. ABDOMEN: Soft, nontender with hypoactive bowel sounds with no peritoneal signs. DIAGNOSTIC DATA: Radiographic findings, at the 2-hour earlene, she has contrast throughout most of her small bowel at this time and would appear to be small amount of air in her colon. ASSESSMENT AND PLAN: Suspected partial small-bowel obstruction with previous history of small bowel obstruction x2, that were managed medically. PLAN: Plan will be to continue small-bowel follow-through study and follow from there. We will return the patient to low intermittent wall suction once the final radiograph is taken. ADDENDUM: At the time of my dictation, I was notified that the patient did have emesis prior to the NG tube being placed back to suction. Radiographic interpretation said findings are consistent with a small-bowel obstruction mid to distal small bowel. Plan will be to continue as previously stated, NG tube to low intermittent wall suction. We will allow the patient have ice chips, encourage ambulation, and repeat KUB in the morning. Job ID: [id number]
[2020-01-04 07:49] LABS: Magnesium 2.2 mg/dL (1.6-2.6); Phosphorus 3.9 mg/dL (2.3-4.7)
[2020-01-04] MEDS: Enoxaparin Sodium 40 MG/0.4 ML SYRINGE SC SCH (08:34)
[2020-01-04] MEDS: Famotidine/PF 20 mg/2ml Vial SLOW IVP SCH ×2 (08:34→21:43)
--- NOTE | 2020-01-04 10:04 | RAD ---
KUB: COMPARISON: Small bowel follow through 01/03/2020. HISTORY: Small bowel follow-through followup for small bowel obstruction. FINDINGS: A single view of the abdomen shows a nonspecific, nonobstructed bowel gas pattern. A small amount of remaining contrast is seen within the colon. Contrast is also seen in the urinary bladder from prev ious contrast examination. An NG tube is seen in the stomach. IMPRESSION: Nonobstructive bowel gas pattern. POS: EAA
--- NOTE | 2020-01-04 10:05 | PRG ---
DATE OF SERVICE: 01/04/2020 HISTORY: Ms. Garcia is a 74-year-old woman with history of multiple previous abdominal surgeries. The patient presented yesterday with recurrent abdominal pain associated with some nausea. Clinical radiographic examination was consistent with acute partial small bowel obstruction for which I was asked to evaluate the patient. Small bowel follow-through was initiated yesterday. By this morning, the patient is having multiple bowel movements and passing flatus. She denies any nausea. Nasogastric tube which was placed yesterday returned moderate amount of nonbilious gastric effluent. Urinary output is adequate for this patient's age and weight. OBJECTIVE: VITAL SIGNS: This morning include blood pressure 133/77, pulse 79, respiratory rate is 18, temperature 98.7 degrees Fahrenheit, oxygen saturation is 95% on room air. ABDOMEN: Soft, nontender, and nondistended. Bowel sounds are present in all 4 quadrants. No abdominal wall hernias present. Liver and spleen nonpalpable below costal margin. NEUROLOGIC: Reveals no focal deficits present. LABORATORY FINDINGS: Includes metabolic profile; sodium 140, potassium 3.4, chloride is 102, bicarb is 33, BUN is 24, creatinine is 0.70, glucose is 129, magnesium is 2.2, and phosphorus is 3.9. IMPRESSION: Resolved acute partial small bowel obstruction. PLAN: Nasogastric tube was removed and the patient will be started on a clear liquid diet to advance as tolerated. If she is tolerating a general diet by tomorrow with no return of abdominal pain, the patient may be discharged at the discretion of the primary service. There is no acute surgical indication for this patient at this time. Job ID: [id number]
--- NOTE | 2020-01-04 11:43 | PDOC.HOSPP ---
- Subjective Encounter Date: 01/04/20 Encounter Time: 09:00 Subjective: no abd pain or nausea got her ng tube removed this am and feels better is ambulating with walker/cane in the room - Objective Vital Signs & Weight: Vital Signs (12 hours) Temp Pulse Resp BP BP BP Pulse Ox 01/04/20 11:22 98.4 F 72 17 115/66 95 01/04/20 08:00 95 01/04/20 07:10 98.5 F 75 18 125/77 95 01/04/20 04:19 98.7 F 79 18 133/77 93 L 01/04/20 00:50 98.0 F 98 18 128/72 87 L Weight Weight 138 lb 2 oz Result Diagrams: 01/03/20 10:25 01/04/20 05:37 Hospitalist ROS - Medication Medications: Active Medications Generic Name Dose Route Start Last Admin Trade Name Freq PRN Reason Stop Dose Admin Enoxaparin Sodium 40 mg 01/04/20 09:00 01/04/20 08:34 Lovenox SC 40 mg 0900 ALEX Administration Famotidine 20 mg 01/03/20 21:00 01/04/20 08:34 Pepcid SLOW IVP 20 mg Q12HR ALEX Administration Potassium Phosphate 15 mmol/ 255 mls @ 62.5 mls/hr 01/04/20 07:15 01/04/20 08 :34 Sodium Chloride IVPB 01/04/20 12:00 255 mls NOW ALEX Administration Ondansetron HCl 4 mg 01/03/20 13:40 01/03/20 17:05 Zofran IVP 4 mg Q6H PRN Administration Nausea/Vomiting Sodium Chloride 10 ml 01/04/20 09:00 01/04/20 08:35 Flush - Normal Saline IVF Not Given Q12HR ALEX - Exam General Appearance: awake alert Eye: PERRL, anicteric sclera ENT: no oropharyngeal lesions, dry oral mucosa Neck: supple, no JVD Heart: RRR, no murmur Respiratory: no wheezes, no rales Gastrointestinal: soft, non-tender, non-distended, normal bowel sounds, no guarding, no rigidity Extremities: no cyanosis, no edema Neurological: cranial nerve grossly intact, no focal deficits Psychiatric: normal affect, A&O x 3 Hosp A/P (1) SBO (small bowel obstruction) Code(s): K56.609 - UNSP INTESTNL OBST, UNSP TO PARTIAL VERSUS COMPLETE OBST Status: Acute (2) COPD (chronic obstructive pulmonary disease) Status: Chronic Qualifiers: COPD type: chronic bronchitis (3) GERD (gastroesophageal reflux disease) Code(s): K21.9 - GASTRO-ESOPHAGEAL REFLUX DISEASE WITHOUT ESOPHAGITIS Status: Chronic Qualifiers: Esophagitis presence: esophagitis presence not specified Qualified Code(s) : K21.9 - Gastro-esophageal reflux disease without esophagitis - Plan gentle iv fluids is initiated on clear liq diet and to advance as tolerated sbo is resolving to ambulate in the room with walker as tolerated has some diarrhea and is scared to ambulate outside, has bedside comode hemostable dc plan in am if stable and tolerating oral diet
--- NOTE | 2020-01-04 22:14 | PRG ---
DATE OF SERVICE: 01/04/2020 SUBJECTIVE: The patient remains on the medicine floor. The patient was seen in consultation for suspected partial small bowel obstruction. She underwent small-bowel follow-through yesterday.Overnight, the patient had multiple bowel movements and this morning, followup KUB showed a nonobstructive bowel gas pattern. Throughout the day, she was tolerating clear liquid diet and her NG tube was removed. The patient at this time denies any nausea. She has not had any more vomiting other than 1 episode last night. She continues to have bowel movements and denies abdominal pain. PHYSICAL EXAMINATION: VITAL SIGNS: Stable. The patient is afebrile. GENERAL: The patient is resting comfortably in bed. She is awake, alert, conversant, appropriate. ABDOMEN: Soft, nontender with active bowel sounds. ASSESSMENT AND PLAN: Acute partial small-bowel obstruction, resolved. Plan will be to advance her diet to a regular diet for breakfast. She has no issues tonight and tolerates her diet in the morning. She will likely be able to be discharged home at the discretion of the primary team. Job ID: [id number] [facility]
[2020-01-05 05:58] LABS: Anion Gap 9 mmol/L (10-20); BUN (Urea Nitrogen) 11 mg/dL (9.8-20.1); Calc. Creatinine Clearance 77 mL/min (70-130); Calcium 8.2 mg/dL (7.8-10.44); Carbon Dioxide 29 mmol/L (23-31); Chloride 103 mmol/L (98-107); Estimated GFR-MDRD Greater than 90; Glucose 92 mg/dL (83-110); Potassium 3.5 mmol/L (3.5-5.1); Sodium 137 mmol/L (136-145)
[2020-01-05] MEDS ORDERED: Famotidine 20 MG TAB PO SCH (09:00)
[2020-01-05] MEDS: Enoxaparin Sodium 40 MG/0.4 ML SYRINGE SC SCH (09:21)
[2020-01-05 12:06] VITALS: BP 155/76; TEMP 98.6
--- NOTE | 2020-01-05 12:41 | DIS ---
DATE OF ADMISSION: 01/03/2020 DATE OF DISCHARGE: 01/05/2020 DISCHARGE DISPOSITION: To home. PRIMARY DISCHARGE DIAGNOSIS: Partial small bowel obstruction, resolved with medical management. SECONDARY DISCHARGE DIAGNOSES: Chronic obstructive pulmonary disease, gastroesophageal reflux disease. PROCEDURES DONE DURING HOSPITALIZATION: CT of the abdomen and pelvis shows evidence for partial small-bowel obstruction at the ileocecal valve. Findings of cirrhosis with small volume ascites. Small bowel follow-through x-ray done on 01/03/2020, showed findings consistent with small bowel obstruction in the mid to distal small bowel. Had a repeat x-ray of the abdomen on 01/03 small-bowel follow-through showed nonobstructive bowel gas pattern. H and H 10 and 34 and platelet count 184. BUN 11, creatinine 0.6, and albumin 3.9. DISCHARGE MEDICATIONS: 1. Cholestyramine packet one packet twice daily. 2. Ativan 1 mg daily p.r.n. for anxiety. 3. Melatonin 3 mg p.o. at bedtime p.r.n. for insomnia. 4. Prilosec 20 mg daily. 5. Ventolin inhaler q.6 hourly p.r.n. ALLERGIES: ALLERGIC TO AMOXICILLIN, CODEINE, SULFA, AND BACTRIM. DISCHARGE PLAN: The patient to follow up with her primary care physician, Dr. Jim Yin in 1 week. BRIEF COURSE DURING HOSPITALIZATION: The patient initially came to ER with complaints of nausea and abdominal pain. She vomited nearly 3 times. This had been ongoing for 2 days, and the patient finally made it to ER. She has had prior history of small bowel obstruction in the past x2, which was resolved by medical management. She has had multiple abdominal surgeries including x3, appendectomy, cholecystectomy, and hysterectomy. She was kept n.p.o. and has had NG suction for first 24 hours. Subsequently, she was weaned into liquid diet and solid food prior to discharge. She was evaluated by Dr. White for General Surgery. Prior to discharge, she is ambulating with a rolling walker and is hemodynamically stable. She was cleared for discharge by Dr. White. Please note, I have seen and examined the patient on the day of discharge. Job ID: [id number]
== END 2020-01-05 13:10 | disposition home or self-care (01) | DRG 389 ==
LOC: ERS 10:09 → T4-A 15:51
PROVIDERS: ADMIT Internal Medicine; ATTEND Internal Medicine
DX: K56.600 Partial intestinal obstruction, unspecified as to cause (principal); R18.8 Other ascites; J44.9 Chronic obstructive pulmonary disease, unspecified; K21.9 Gastro-esophageal reflux disease without esophagitis; K74.60 Unspecified cirrhosis of liver; Z90.49 Acquired absence of other specified parts of digestive tract; Z90.710 Acquired absence of both cervix and uterus; Z88.1 Allergy status to other antibiotic agents; Z88.2 Allergy status to sulfonamides; Z88.8 Allergy status to other drugs, medicaments and biological substances; Z87.891 Personal history of nicotine dependence
CPT/HCPCS: 36415; 71045; 74018; 74177; 74250; 80048; 80053; 81003; 83690; 83735; 84100; 85025; 96361; 96374; 96375; J1650; J2270; J2405; J7050; Q9963; Q9967; S0028

== ENCOUNTER 2020-09-13 19:16 | Inpatient (IN) | payer MEDICARE ==
[~2020-09-13 19:16] MED LIST: Iopamidol-370 76% 500 ML 1 ML ONE
[2020-09-13 20:43] LABS: #Lymphocytes 1.2 thou/uL (1.20-3.40); #Monocytes 0.6 thou/uL (0.11-0.59); #Neutrophils 6.3 thou/uL (1.40-6.50); %Basophils 0.1 % (0.0-1.0); %Eosinophils 0.5 % (0.0-10.0); %Lymphocytes 14.4 % (21.0-51.0); %Monocytes 7.9 % (0.0-10.0); %Neutrophils 77.1 % (42.0-75.0); Hemoglobin 13.2 g/dL (12.0-16.0); Mean Corpuscular HGB CONC 32.7 g/dL (32.0-36.0); Mean Corpuscular Volume 85.5 fL (78.0-98.0); Mean Platelet Volume 8.7 fL (7.4-10.4); Platelet Count 188 thou/uL (130-400); RBC Distribution Width 13.1 % (11.5-14.5); Red Blood Cell (RBC) Count 4.71 mill/uL (4.20-5.40); White Blood Cell (WBC) Count 8.2 thou/uL (4.8-10.8)
[2020-09-13 21:07] LABS: ALT (SGPT) 19 U/L (8-55); AST (SGOT) 28 U/L (5-34); Albumin 3.5 g/dL (3.4-4.8); Alkaline Phosphatase 132 U/L (40-110); Anion Gap 13 mmol/L (10-20); BUN (Urea Nitrogen) 15 mg/dL (9.8-20.1); Bilirubin, Total 0.8 mg/dL (0.2-1.2); Calc. Creatinine Clearance 0 mL/min (70-130); Calcium 8.7 mg/dL (7.8-10.44); Carbon Dioxide 26 mmol/L (23-31); Chloride 98 mmol/L (98-107); Glucose 131 mg/dL (83-110); Lipase 23 U/L (8-78); Potassium 4.3 mmol/L (3.5-5.1); Protein, Total 7.5 g/dL (6.0-8.3); Sodium 133 mmol/L (136-145)
[2020-09-13] MEDS ORDERED: Fentanyl 100 MCG/2 ML VIAL ONE (22:11)
[2020-09-13 22:21] LABS: Bacteria/HPF None Seen HPF (None Seen); Bilirubin Negative (Negative); Blood, Urine Negative (Negative); Clarity Clear (Clear); Glucose, Urine (Dipstick) Normal (Negative); Ketone, Urine Negative (Negative); Leukocyte 25 Leu/uL (Negative); Mucous/LPF Rare LPF (<2+); Nitrite Negative (Negative); Protein, Urine (Dipstick) 10 mg/dL (Neg-Trace); RBC/HPF 0-3 HPF (0-3); Renal Epithelial 0-3 HPF (None Seen); Specific Gravity, Urine 1.019 (1.002-1.036); Urobilinogen Normal mg/dL (Less than 2)
[2020-09-13] MEDS ORDERED: Ondansetron PF 4 MG/2 ML Vial ONE (22:39)
[2020-09-14] MEDS: Dextrose 5 % And 0.9 % NaCl 1,000 ML IV SCH ×2 (03:50→13:30)
--- NOTE | 2020-09-14 05:50 | PDOC.HHP ---
Hospitalist HPI - History of Present Illness Abdominal pain History of Present Illness: This is a 74-year-old female patient with a history of intestinal obstruction, GERD, COPD and anemia who presents with worsening abdominal pain for the past couple of days. She notes nausea without vomiting. Pain is crampy in nature generalized nonradiating. She notes having not passed bowel for the past couple of days however she passes stools. She passed gas about 1 hour before I saw her. Of note she has had previous history is of partial bowel obstructions which have been treated nonsurgically with NG tube and monitoring. Previous history of cholecystectomy and abdominal surgeries. She was last seen here in 12/2019 on account of small bowel obstruction. She denies any associated fever, chest pain or shortness of breath. She denies any dysuria frequency. On arrival her blood pressure was 131/80, pulse 91, respiratory rate 18, temperature 97.6 saturating 97 on room air. Labs showed generally unremarkable CBC, CMP showed mild hyponatremia of 133, alkaline phosphatase 132, troponin was less than 0.01 urinalysis was not indicative of UTI. Abdominal CT was concerning for partial small bowel obstr uction. She was given ondansetron and fentanyl for pain Hospitalist team was consulted for admission. Hospitalist ROS - Review of Systems Constitutional: denies: fever, chills, sweats, weakness Respiratory: denies: cough, shortness of breath, hemoptysis Gastrointestinal: reports: nausea, abdominal pain, constipation. denies: vomiting, diarrhea Genitourinary: denies: dysuria, frequency, incontinence Neurological: denies: weakness, numbness, incoordination All other systems reviewed; all pertinent +/- noted in HPI/Subj - Medication Medications: Active Medications Generic Name Dose Route Start Last Admin Trade Name Freq PRN Reason Stop Dose Admin Dextrose/Sodium Chloride 1,000 mls @ 100 mls/hr 09/14/20 02:45 09/14/20 03:50 D5 0.9% Ns IV 1,000 mls .Q10H ALEX Administration Medications: Currently refer to ambulatory list. Allergies: Amoxil, codeine, sulfa drugs Hospitalist History - Past Medical History Other Medical History: intestinal obstruction, GERD, COPD and anemia - Past Surgical History Past Surgical History: reports: Cholecystectomy - Family History Family History: reports: no pertinent history - Social History Smoking Status: Never smoker Alcohol: reports: None Living Situation: With Family - Exam General Appearance: awake alert General - other findings: In no acute distress Eye: PERRL, anicteric sclera Heart: RRR, no murmur, no gallops, no rubs Respiratory: CTAB, no wheezes, no rales, tachypneic Gastrointestinal: soft, non-tender, non-distended Gastrointestinal - other findings: Slightly hyperactive bowel Extremities: no cyanosis, no clubbing, no edema Neurological: cranial nerve grossly intact, no weakness, no focal deficits Psychiatric: normal affect, normal behavior, A&O x 3 Hospitalist Results - Labs Result Diagrams: 09/14/20 07:00 09/14/20 07:00 Lab results: WBC 8.2 thou/uL (4.8-10.8) 09/13/20 20:31 Hgb 13.2 g/dL (12.0-16.0) 09/13/20 20:31 Hct 40.3 % (36.0-47.0) 09/13/20 20:31 MCV 85.5 fL (78.0-98.0) 09/13/20 20:31 Plt Count 188 thou/uL (130-400) 09/13/20 20:31 Neutrophils % 77.1 % (42.0-75.0) H 09/13/20 20:31 Sodium 133 mmol/L (136-145) L 09/13/20 20:31 Potassium 4.3 mmol/L (3.5-5.1) 09/13/20 20:31 Chloride 98 mmol/L (98-107) 09/13/20 20:31 Carbon Dioxide 26 mmol/L (23-31) 09/13/20 20:31 BUN 15 mg/dL (9.8-20.1) 09/13/20 20:31 Creatinine 0.68 mg/dL (0.6-1.1) 09/13/20 20:31 Glucose 131 mg/dL (83-110) H 09/13/20 20:31 Calcium 8.7 mg/dL (7.8-10.44) 09/13/20 20:31 Total Bilirubin 0.8 mg/dL (0.2-1.2) 09/13/20 20:31 AST 28 U/L (5-34) 09/13/20 20:31 ALT 19 U/L (8-55) 09/13/20 20:31 Alkaline Phosphatase 132 U/L (40-110) H 09/13/20 20:31 Troponin I Less than 0.010 ng/mL (< 0.028) 09/13/20 20:31 Serum Total Protein 7.5 g/dL (6.0-8.3) 09/13/20 20:31 Albumin 3.5 g/dL (3.4-4.8) 09/13/20 20:31 Lipase 23 U/L (8-78) 09/13/20 20:31 Urine Ketones Negative mg/dL (Negative) 09/13/20 21:50 Urine Blood Negative (Negative) 09/13/20 21:50 Urine Nitrite Negative (Negative) 09/13/20 21:50 Ur Leukocyte Esterase 25 Sabino/uL (Negative) A 09/13/20 21:50 Urine RBC 0-3 HPF (0-3) 09/13/20 21:50 Urine WBC 7-10 HPF (0-3) A 09/13/20 21:50 Ur Squamous Epith Cells 4-6 HPF (0-3) A 09/13/20 21:50 Urine Bacteria None Seen HPF (None Seen) 09/13/20 21:50 Hospitalist H&P A/P - Plan Plan: This is a 74-year-old male patient with a history of partial small bowel obstruction secondary to adhesions, anemia COPD presenting with abdominal pain with nausea concerning for recurrent small bowel obstruction. Recurrent small bowel obstruction On evaluation abdomen is pretty soft bowel sounds are most normal if passing gas. This appears very mild or resolving. She does not have any more nausea We will observe Past NG tube if any indication of increased obstruction like nausea or vomits. Surgical history consultation in a.m. Hyponatremia Sodium 133 Monitor Elevated alkaline phosphatase Monitor CMP CODE STATUSfull code VT prophylaxisLovenox
[2020-09-14 07:23] LABS: #Eosinphils 0.1 thou/uL (0.0-0.7); #Lymphocytes 1.7 thou/uL (1.20-3.40); #Monocytes 0.7 thou/uL (0.11-0.59); #Neutrophils 2.9 thou/uL (1.40-6.50); %Basophils 0.7 % (0.0-1.0); %Eosinophils 1.1 % (0.0-10.0); %Lymphocytes 31.7 % (21.0-51.0); %Monocytes 13.5 % (0.0-10.0); %Neutrophils 53.1 % (42.0-75.0); Hemoglobin 12.3 g/dL (12.0-16.0); Mean Corpuscular HGB CONC 31.9 g/dL (32.0-36.0); Mean Corpuscular Hemoglobin 27.7 pg (27.0-31.0); Mean Corpuscular Volume 86.8 fL (78.0-98.0); Mean Platelet Volume 8.7 fL (7.4-10.4); Platelet Count 165 thou/uL (130-400); RBC Distribution Width 13.2 % (11.5-14.5); Red Blood Cell (RBC) Count 4.44 mill/uL (4.20-5.40); White Blood Cell (WBC) Count 5.5 thou/uL (4.8-10.8)
[2020-09-14 07:43] LABS: Anion Gap 10 mmol/L (10-20); BUN (Urea Nitrogen) 11 mg/dL (9.8-20.1); Calc. Creatinine Clearance 82 mL/min (70-130); Calcium 8.1 mg/dL (7.8-10.44); Carbon Dioxide 27 mmol/L (23-31); Chloride 103 mmol/L (98-107); Glucose 88 mg/dL (83-110); Potassium 3.9 mmol/L (3.5-5.1); Sodium 136 mmol/L (136-145)
--- NOTE | 2020-09-14 09:19 | CT ---
CT ABDOMEN AND PELVIS PERFORMED WITH CONTRAST ENHANCEMENT: Date: 09/13/2020 HISTORY: Abdominal pain, center of abdomen, for 2 days. Patient has a history of bowel obstructions and states that this is what that feels like. COMPARISON: 01/03/2020 exam. FINDINGS: Lung bases show a combination of some ground-glass and areas of lucency which are probably on the bas is of air trapping. Small hiatal hernia is identified. The liver has a nodular cirrhotic contour. Spl een is within normal limits of size. A small hypodensity within the inferior portion of the spleen is stable, probably a small splenic cyst. Pancreas region is unremarkable. Gallbladder appears to have been removed. There is extrahepatic ductal dilatation. There is a small density seen within the dista l common bile duct. I cannot exclude this as a small stone. It actually has a similar appearance to t he previous exam. It actually had this appearance on the 08/05/2019 exam. Given the chronicity of thi s, a neoplastic process would be considered unlikely. This could potentially represent some type of a edel of scarring. Right and left adrenal glands are normal. There is an area of cortical scarring and dystrophic calcif ication in the upper pole of the left kidney. There is no significant periaortic or mesenteric adenop athy. There are dilated small bowel loops. This is actually similar to what was seen on the previous exam. This dilatation extends to the ileocecal valve. Some fecalization of some of the small bowel co ntents of the terminal ileum. The colon is relatively decompressed. Free fluid is seen within the cul -de-sac region. No pelvic lymphadenopathy or mass. IMPRESSION: 1. Mildly distended small bowel loops. This is almost an identical appearance to what seen on the pr evious 01/03/2020 study. An unusual feature of this is that it extends to the ileocecal valve and the colon is decompressed. This would suggest that there is some type of stricture at this level. I do n ot see any type of mass. There is some fecalization of the small bowel contents of the terminal ileum . 2. Nodular cirrhotic liver. There is some free fluid within the cul-de-sac region. 3. Post cholecystectomy change. Common bile duct is dilated. Small soft tissue density is seen in th e distal common duct. This has been present on the previous two examinations. It could indicate some area of scarring. It could represent a small stone. A neoplastic process would be less likely given t he longstanding nature of this. POS: OFF
[2020-09-14] MEDS: Enoxaparin Sodium 40 MG/0.4 ML SYRINGE SC SCH (10:04)
[2020-09-14] MEDS ORDERED: Albuterol Sulfate 2.5 mg/3 ml Neb NEB PRN (13:24)
[2020-09-14 15:12] VITALS: BMI 26.5
[2020-09-14] MEDS ORDERED: GoLYTELY 4,000 ml Bottle PO SCH (18:00)
--- NOTE | 2020-09-14 18:22 | PDOC.HOSPP ---
- Subjective Encounter Date: 09/14/20 Encounter Time: 11:00 Subjective: Seen for follow-up for bowel obstruction. She reports having bowel movements and passing flatus. - Objective Vital Signs & Weight: Vital Signs (12 hours) Temp Pulse Resp BP Pulse Ox 09/14/20 15:44 98.8 F 64 12 158/68 H 97 09/14/20 11:51 98.6 F 69 12 127/60 95 09/14/20 07:30 98.9 F 66 12 111/66 94 L Weight Admit Weight 150 lb 0.048 oz Weight 150 lb 0.048 oz I&O: 09/13/20 09/14/20 09/15/20 06:59 06:59 06:59 Intake Total 659 Output Total 0 Balance 659 Result Diagrams: 09/14/20 07:00 09/14/20 07:00 Additional Labs: Labs and MAR reviewed by [place] Hospitalist ROS - Review of Systems Cardiovascular: denies: chest pain, palpitations, orthopnea, paroxysmal noc. dyspnea, edema, light headedness Gastrointestinal: denies: nausea, vomiting, abdominal pain, diarrhea, constipation, melena, hematochezia - Medication Medications: Active Medications Generic Name Dose Route Start Last Admin Trade Name Freq PRN Reason Stop Dose Admin Enoxaparin Sodium 40 mg 09/14/20 09:00 09/14/20 10:04 Enoxaparin Sodium 40 Mg/0.4 Ml Syringe SC 40 mg 0900 ALEX Administration Dextrose/Sodium Chloride 1,000 mls @ 100 mls/hr 09/14/20 02:45 09/14/20 13:30 D5 0.9% Ns IV 1,000 mls .Q10H ALEX Administration - Exam General Appearance: awake alert Eye: anicteric sclera ENT: moist mucosa Neck: supple Heart: RRR Respiratory: CTAB Gastrointestinal: soft, non-tender, normal bowel sounds Skin: no rashes Musculoskeletal: no muscle wasting Psychiatric: normal affect, normal behavior Hosp A/P - Plan -Assessment/plan Recurrent small bowel obstruction Appears to be resolving. Start clear liquid diet. Hyponatremia Mild, likely asymptomatic Elevated alkaline phosphatase Monitor CMP Suggestion of ileocecal valve stricture on CT scan, consult GI service for opinion and help with management.
[2020-09-14] MEDS ORDERED: FLU VACC QS2020-21(65YR UP)/PF 240 MCG/0.7 ML SYRINGE IM ONE (21:00)
--- NOTE | 2020-09-14 22:49 | CON ---
DATE OF CONSULTATION: 09/14/2020 REQUESTING PHYSICIAN: Demarco Luke MD REASON FOR CONSULTATION: Recurrent bowel obstructions. HISTORY OF PRESENT ILLNESS: Polly Garcia is a very pleasant 74-year-old woman. She has a history of GERD, COPD, and iron deficiency anemia. She has had multiple abdominal surgeries including appendectomy, cholecystectomy, hysterectomy, and 3 C-sections. From the chart, it appears she has undergone colonoscopy in the past around 2014, which was evidently normal, though the patient does not really recall details on this. Over the past couple of years, she has had a couple of presentations with partial small-bowel obstruction. She has required NG tube placement and conservative management and these have both resolved on their own. Early yesterday, she again started having characteristic generalized abdominal intermittent cramping pain, which became quite severe, associated with a bit of nausea, but no vomiting this time. She was not passing any gas or having any flatus, all consistent with recurrent bowel obstructive symptoms. She was admitted to the hospital here early this morning and CT imaging demonstrated dilation of small bowel loops all the way to the level of the ileocecal valve. There was decompression of the colon and some fecalization of contents within the terminal ileum, all suggestive of possible terminal ileal stricture. This morning, the patient started having significant improvement of symptoms. She did not require NG tube placement. She never vomited. She started having bowel sounds again, passed a lot of flatus, and a large bowel movement. She is feeling a lot better, not currently having any pain. She has tolerated some clear liquids this afternoon. REVIEW OF SYSTEMS: Full review of systems including constitutional, head, eyes, ears, nose, throat, GI, , cardiovascular, respiratory, musculoskeletal, neurologic systems is negative except as noted in the HPI. PAST MEDICAL HISTORY: Hiatal hernia, GERD, esophagitis, appendectomy, cholecystectomy, hysterectomy, recurrent partial small-bowel obstructions, x3, hypertension, hyperlipidemia, anxiety, iron deficiency anemia, colonoscopy in 2014, evidently normal. ALLERGIES: AMOXICILLIN, CODEINE, SULFA. OUTPATIENT MEDICATIONS: 1. Omeprazole 20 mg daily. 2. Melatonin 3 mg at bedtime. 3. Ativan 1 mg daily p.r.n. 4. Cholestyramine 1 packet twice daily. 5. Albuterol inhaler q.6 hours p.r.n. SOCIAL HISTORY: No smoking or alcohol use. FAMILY HISTORY: Noncontributory. She denies any family history of GI malignancy or inflammatory bowel disease. PHYSICAL EXAMINATION: VITAL SIGNS: Temperature 98.6, pulse 69, blood pressure 127/60, 95% oxygen saturation on room air. GENERAL: A 74-year-old woman sitting up in bed comfortably, in no acute distress. MENTAL: She is in good spirits. Alert and oriented. She is able to give details about recent presentation, but is fuzzy on the details of more remote history. SKIN: No jaundice. No rashes were palpable. EYES: No scleral icterus. Extraocular movements intact. ENT: Mucous membranes are moist. No oral lesions. LYMPH: No submandibular or supraclavicular lymphadenopathy. THYROID: Nontender to palpation. HEART: Regular rate and rhythm. LUNGS: Clear to auscultation bilaterally. ABDOMEN: Nondistended. Bowel sounds are present, high pitched throughout the abdomen and a bit hyperactive. The abdomen is nontender to palpation. No guarding or rebound tenderness. EXTREMITIES: No peripheral edema. VESSELS: Radial pulses 2+ bilaterally. NEURO: Cranial nerves 2 through 12 intact bilaterally. No focal deficits. LABORATORY STUDIES: WBC 5.5, hemoglobin 12.3, platelets 165. Sodium 136, potassium 3.9, BUN 11, creatinine 0.66, total bilirubin 0.8, alkaline phosphatase 132, AST 28, ALT 19, albumin 3.5. Lipase only 23. Troponin negative. IMAGING STUDIES: CT of the abdomen and pelvis demonstrates dilation of small bowel loops all the way to the ileocecal valve. The colon is decompressed. Fecalization of bowel contents in the terminal ileum, suggestive of possible terminal ileal stricture. Liver has a nodular appearance. She is post cholecystectomy. There is a stable small soft tissue density in the area of the distal common bile duct, which has not changed since early 2019 exam. ASSESSMENT AND PLAN: 1. Recurrent partial small-bowel obstruction, symptoms have resolved this afternoon. 2. 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 The patient has no known history of Crohn disease or family history of inflammatory bowel disease. The differential for these recurrent partial obstructions would include possibility of terminal ileal stricture with undiagnosed Crohn disease, versus possible extrinsic effect from peritoneal adhesions given her extensive prior surgical history. I do think it would be worthwhile to perform diagnostic colonoscopy, try to reach that terminal ileal area and determine the nature of the stricturing process there. She feels like she could probably tolerate a bowel preparation this evening, so we will go ahead and plan for bowel preparation now, and colonoscopy tomorrow. Thank you for the consultation. Please call back anytime with questions or concerns. Job ID: [id number]
[2020-09-15] MEDS: Dextrose 5 % And 0.9 % NaCl 1,000 ML IV SCH ×3 (03:03→14:55)
[2020-09-15] MEDS: hydrALAZINE 20 MG/ML VIAL SLOW IVP PRN (06:04)
[2020-09-15] MEDS: Enoxaparin Sodium 40 MG/0.4 ML SYRINGE SC SCH (08:32)
--- NOTE | 2020-09-15 10:14 | OP ---
DATE OF PROCEDURE: 09/15/2020 TEST DESIGN ENGINEER SURGEON: None. PROCEDURES PERFORMED: Colonoscopy with submucosal injection and snare polypectomy. INDICATIONS FOR PROCEDURE: Recurrent partial small-bowel obstruction, with abdominal CT scan suggesting stricturing or obstructive process in the area of the terminal ileum. MEDICATIONS: See Anesthesia record. FINDINGS: After discussion of the risks, benefits, and alternatives of the procedure, informed consent was obtained and witnessed. Pre-endoscopic cardiopulmonary examination was satisfactory. Time-out was performed before sedation was achieved. Sedation was achieved with Anesthesia assistance in the endoscopy unit. A digital rectal exam was performed, which was unremarkable. A Pentax adult colonoscope was inserted into the anus and passed forward to the cecum in the usual fashion. The cecal base was identified by the appendiceal orifice. I was unable to identify the ileocecal valve. This is because there is a large malignant-appearing mass essentially filling up the entire cecum as well as extending into the proximal ascending colon. This is very friable and ulcerated. I did not obtain biopsies of the mass. I did inject the tattoo ink submucosally just distal to the lesion. More distal in the colon at about 70 cm, which I estimate to be in the transverse colon, there is a large sessile polyp, which is not endoscopically resectable. I injected tattoo ink submucosally just distal to this lesion as well. There was another large polyp in the sigmoid colon, which measured about 1.5 cm in diameter. I was able to completely remove this polyp with hot snare. I did place some tattoo ink in this region of the sigmoid colon as well for future visualization purposes. There are a few scattered diverticula throughout the colon. Retroflexion in the rectum shows some internal hemorrhoids. The colonoscope was completely withdrawn and the patient allowed to recover. The patient tolerated the procedure well. There were no immediate postprocedure complications. IMPRESSION: 1. 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 Not biopsied. Tattooed distal to the lesion submucosally. 2. Large polyp at 70 cm, estimated to be in the transverse colon, not endoscopically resectable. Tattooed distal to the polyp. 3. 1.5 cm sigmoid colon polyp, completely removed with hot snare and retrieved for pathology. I tattooed this area of the sigmoid colon submucosally. 4. Internal hemorrhoids. RECOMMENDATIONS: 1. Clear liquid diet today. 2. N.p.o. after midnight. 3. We will obtain general surgical consultation tomorrow for consideration of resection of her cecal/ascending colon mass as well as the more distal polyp, which is not endoscopically resectable. 4. Check CEA level tomorrow morning. Job ID: [id number]
[2020-09-15] MEDS ORDERED: Lidocaine 1% PF 5 ML VIAL ONE (12:09)
[2020-09-15] MEDS ORDERED: PROPOFOL 200 MG/20 ML VIAL ONE (12:09)
--- NOTE | 2020-09-15 16:28 | PDOC.HOSPP ---
- Subjective Encounter Date: 09/15/20 Encounter Time: 11:30 Subjective: Patient seen for follow-up regarding bowel obstruction. She denies chest pain or shortness of breath. - Objective Vital Signs & Weight: Vital Signs (12 hours) Temp Pulse Resp BP BP Pulse Ox 09/15/20 11:37 97.7 F 65 17 160/69 H 93 L 09/15/20 10:53 97.3 F L 70 19 156/72 H 94 L 09/15/20 08:20 98.4 F 69 20 127/58 L 94 L 09/15/20 06:04 72 181/82 H 09/15/20 04:27 98.4 F 60 16 187/79 H 94 L Weight Admit Weight 150 lb 0.048 oz Weight 150 lb 0.048 oz I&O: 09/14/20 09/15/20 09/16/20 06:59 06:59 06:59 Intake Total 659 5492 0 Output Total 0 600 Balance 659 4892 0 Result Diagrams: 09/14/20 07:00 09/14/20 07:00 Additional Labs: I reviewed patient's labs and [facility] Hospitalist ROS - Review of Systems Gastrointestinal: denies: nausea, vomiting, abdominal pain, diarrhea, constipation, melena, hematochezia Genitourinary: denies: dysuria, frequency, incontinence, hematuria, retention - Medication Medications: Active Medications Generic Name Dose Route Start Last Admin Trade Name Freq PRN Reason Stop Dose Admin Enoxaparin Sodium 40 mg 09/14/20 09:00 09/15/20 08:32 Enoxaparin Sodium 40 Mg/0.4 Ml Syringe SC Not Given 0900 ALEX Hydralazine HCl 10 mg 09/15/20 05:31 09/15/20 06:04 Hydralazine 20 Mg/Ml Vial SLOW IVP 10 mg Q4H PRN Administration SBP>160 Dextrose/Sodium Chloride 1,000 mls @ 100 mls/hr 09/14/20 02:45 09/15/20 14:55 D5 0.9% Ns IV 1,000 mls .Q10H ALEX Administration Pantoprazole Sodium 40 mg 09/15/20 09:00 09/15/20 08:33 Pantoprazole 40 Mg Tab PO Not Given DAILY ALEX - Exam General Appearance: awake alert Eye: anicteric sclera ENT: moist mucosa Neck: supple Heart: RRR Respiratory: CTAB Gastrointestinal: soft, non-tender Skin: no rashes Psychiatric: normal affect, normal behavior Hosp A/P - Plan -Assessment/plan Recurrent bowel obstruction Patient had colonoscopy, appears to have malignancy in the GI tract. Consult general surgery service for opinion and help with management. Hyponatremia Resolved Elevated alkaline phosphatase To be followed up as outpatient
[2020-09-16] MEDS: Dextrose 5 % And 0.9 % NaCl 1,000 ML IV SCH ×2 (00:10→21:02)
[2020-09-16] MEDS: hydrALAZINE 20 MG/ML VIAL SLOW IVP PRN (05:45)
[2020-09-16] MEDS: Enoxaparin Sodium 40 MG/0.4 ML SYRINGE SC SCH (07:16)
[2020-09-16] MEDS ORDERED: Meropenem 2 GM, Admixture Fee 1 EACH in Sodium Chloride 0.9% 100 ML IVPB SCH ×2 (08:45→14:30)
--- NOTE | 2020-09-16 09:08 | CON ---
DATE OF CONSULTATION: HISTORY OF PRESENT ILLNESS: Polly Garcia is a 74-year-old female, lives in [place], recently , presents with abdominal pain, had a CAT scan of the abdomen and pelvis in the emergency room, demonstrated some distended bowel loops and some changes in the cecum. They were in fact present on a previous CAT scan in December 2019. There is evidence on December 2019 CAT scan for a partial bowel obstruction, small volume ascites, sliding hiatal hernia, but no mention of a cecal mass was known. On August 05, 2019, she had another CAT scan obtained because of abdominal pain. She had small bowel dilatation with fecalization of the small bowel and dilatation. Suggestion of cirrhosis and a partial bowel obstruction was made. The patient had a CAT scan previous to that one in October 2018 obtained because of abdominal pain. Again dilated loops of small bowel seen in the central abdomen, transition mid abdomen with evidence of cirrhosis, however, bezoar is a possibility. On this occasion, Dr. Puentes performed a colonoscopy noting a tumor mass in the cecum. Another nonresectable polyp at 70 cm, thought to be in her transverse colon that was tattooed. A 1.5 cm sigmoid polyp that was completely excised with a snare and this was tattooed. The patient's hemoglobin is 12. ALLERGIES: LISTED SULFA, AND SHE STATES THIS CAUSES GI UPSET. LISTED ALSO IS PENICILLIN. SOCIAL HISTORY: Tobacco none. Alcohol none. MEDICATIONS AT HOME: 1. Iron. 2. Omeprazole. 3. Lorazepam. 4. Cholestyramine. 5. Ventolin inhaler. PAST SURGICAL HISTORY: Colonoscopy this hospitalization. She reports many years ago, she cannot remember when, she thinks she had a colonoscopy at the [facility]. Her was a . Open reduction internal fixation, distal right radius June 2019. Trauma Service saw her in July 2019, December 2018. The patient has had a hysterectomy, 3 C sections, cholecystectomy. PAST MEDICAL HISTORY: Asthma, partial bowel obstruction hospitalization without surgical intervention. REVIEW OF SYSTEMS: Noncontributory. PHYSICAL EXAMINATION: VITAL SIGNS: Height 5 feet 3 inches, 150 pounds, 26 BMI. 98.7, 74, 123/58. HEAD, EARS, EYES, NOSE, THROAT: Unremarkable. LUNGS: Clear to auscultation. CARDIAC: Regular rate and rhythm. ABDOMEN: Soft, nontender. Infraumbilical scar consistent with hysterectomy, C-sections. EXTREMITIES: Unremarkable. No ankle edema. LABORATORIES: Normal renal function. Hemoglobin 12, white count 5. Liver function tests normal. CEA level is 10. CAT scan does not show any liver metastasis. ASSESSMENT AND PLAN: 1. Colon cancer, cecal, and another one nonresectable tattoo to 70 cm. Plan: Open resection, general anesthesia, TAP block. She understands the risks and benefits and consents. Risks of infection, bleeding, reoperation, anastomotic leakage. 2. Listed is cirrhosis, but no prior history to suggest cirrhosis. Liver function tests are normal. Coagulation studies in 2015 were normal. Evaluate liver intraoperatively. 3. Asthma. 4. Lack of COVID screening rapid test preoperatively today. Job ID: [id number]
[2020-09-16 09:44] LABS: SARS-CoV-2 NAA Rapid Test DETECTED (NotDetected)
--- NOTE | 2020-09-16 10:25 | PRG ---
DATE OF SERVICE: 09/16/2020 SUBJECTIVE: Ms. Garcia is feeling well. She is n.p.o. today. Dr. Tate has already seen her and the plan is for open partial colon resection under general anesthesia. OBJECTIVE: VITAL SIGNS: Temperature 98.7, pulse 74, blood pressure 123/58, 96% oxygen saturation on room air. GENERAL: No acute distress, lying in bed comfortably. HEART: Regular rate and rhythm. LUNGS: Clear to auscultation bilaterally. ABDOMEN: Soft and nontender to deep palpation throughout. EXTREMITIES: No peripheral edema. LABORATORY STUDIES: WBC 5.5, hemoglobin 12.3, platelets 165. CEA is elevated to 10.10, BUN 11, creatinine 0.66. ASSESSMENT/PLAN: 1. Cecal mass, likely malignant. 2. Large colon polyp at 70 cm, not endoscopically resectable, tattoo placed yesterday. 3. Sigmoid colon polyp, completely removed with snare polypectomy yesterday, tattooed that site. 4. Elevated CEA, level is 10.10. Appreciate Dr. Tate's assistance. The plan is for resection of her colon mass as well as more distal unresectable polyp. From the GI standpoint, we will plan to see her back in clinic in the next 3 to 4 weeks for followup. Anticipate repeating colonoscopy for surveillance in one year interval. GI will sign off, please call back anytime with questions or concerns. Job ID: [id number]
[2020-09-16] MEDS ORDERED: Dexamethasone 20 MG/5 ML VIAL ONE (11:34)
[2020-09-16] MEDS ORDERED: Succinylcholine 200 MG/10 ml SYRINGE FS ONE (11:34)
[2020-09-16] MEDS ORDERED: ePHEDrine 50 MG/ML VIAL ONE (11:34)
[2020-09-16] MEDS ORDERED: PHENYLEPHRINE-NS 100 MCG/ML 10 ML SYRINGE ONE (11:34)
[2020-09-16] MEDS ORDERED: Ondansetron PF 4 MG/2 ML Vial ONE (11:34)
[2020-09-16] MEDS ORDERED: Metoclopramide HCl 10 MG/2 ML VIAL ONE (11:34)
[2020-09-16] MEDS ORDERED: Lidocaine 1% PF 5 ML VIAL ONE (11:34)
[2020-09-16] MEDS ORDERED: PROPOFOL 200 MG/20 ML VIAL ONE (11:34)
[2020-09-16] MEDS ORDERED: Rocuronium Bromide 10 MG/ML (10ML VIAL) ONE (11:34)
[2020-09-16] MEDS ORDERED: Bupivacaine HCl 0.5%/Epinephrine 1:200,000/PF 30 ml Vial ONE (11:34)
[2020-09-16] MEDS ORDERED: Fentanyl 100 MCG/2 ML VIAL ONE ×2 (13:04→16:11)
[2020-09-16] MEDS ORDERED: Famotidine/PF 20 mg/2ml Vial ONE (13:04)
[2020-09-16] MEDS ORDERED: SUGAMMADEX SODIUM 200 MG/2 ML VIAL ONE (13:04)
[2020-09-16] MEDS ORDERED: Phenylephrine 10 MG/ML VIAL ONE (13:04)
[2020-09-16] MEDS ORDERED: Albumin 5% 0 ML ONE (15:10)
[2020-09-16] MEDS ORDERED: Albumin 5% 500 ML ONE (15:10)
--- NOTE | 2020-09-16 15:39 | PDOC.HOSPP ---
- Subjective Encounter Date: 09/16/20 Encounter Time: 10:30 Subjective: Patient seen for follow-up regarding small bowel obstruction. She denies any new complaints, awaiting surgery. - Objective Vital Signs & Weight: Vital Signs (12 hours) Temp Pulse Resp BP BP Pulse Ox 09/16/20 08:06 98.7 F 74 20 123/58 L 96 09/16/20 06:20 71 123/58 L 09/16/20 05:45 65 179/79 H 09/16/20 05:30 98.8 F 65 16 179/79 H Weight Admit Weight 150 lb 0.048 oz Weight 150 lb 0.048 oz I&O: 09/15/20 09/16/20 09/17/20 06:59 06:59 06:59 Intake Total 5492 0 Output Total 600 Balance 4892 0 Result Diagrams: 09/14/20 07:00 09/14/20 07:00 Additional Labs: Labs and MAR reviewed by me Hospitalist ROS - Review of Systems Gastrointestinal: denies: nausea, vomiting, abdominal pain, diarrhea, constipation, melena, hematochezia Genitourinary: denies: dysuria, frequency, incontinence, hematuria, retention - Medication Medications: Active Medications Generic Name Dose Route Start Last Admin Trade Name Freq PRN Reason Stop Dose Admin Enoxaparin Sodium 40 mg 09/14/20 09:00 09/16/20 07:16 Enoxaparin Sodium 40 Mg/0.4 Ml Syringe SC Not Given 0900 ALEX Hydralazine HCl 10 mg 09/15/20 05:31 09/16/20 05:45 Hydralazine 20 Mg/Ml Vial SLOW IVP 10 mg Q4H PRN Administration SBP>160 Dextrose/Sodium Chloride 1,000 mls @ 100 mls/hr 09/14/20 02:45 09/16/20 00:10 D5 0.9% Ns IV 1,000 mls .Q10H ALEX Administration Pantoprazole Sodium 40 mg 09/15/20 09:00 09/16/20 07:16 Pantoprazole 40 Mg Tab PO Not Given DAILY ALEX - Exam General Appearance: awake alert Eye: anicteric sclera ENT: moist mucosa Neck: supple Heart: RRR Respiratory: CTAB Gastrointestinal: soft Skin: no rashes Psychiatric: normal affect Hosp A/P - Plan -Assessment/plan Recurrent bowel obstruction Appears to be secondary to malignancy. Hyponatremia Resolved Colon cancer Found on colonoscopy, for surgery today.
[2020-09-16] MEDS ORDERED: traMADol HCl 50 MG TAB PO PRN (16:21)
[2020-09-16] MEDS ORDERED: Promethazine HCl 25 MG/ML VIAL IM PRN (16:26)
[2020-09-16] MEDS ORDERED: Ondansetron HCl/PF 4 MG/2 ML Vial IVP PRN (16:26)
[2020-09-16] MEDS ORDERED: Promethazine HCl 25 MG/ML VIAL SLOW IVP PRN (16:26)
[2020-09-16] MEDS ORDERED: Ondansetron PF 4 MG/2 ML Vial IVP PRN (16:34)
[2020-09-16] MEDS ORDERED: Ondansetron ODT 8 MG TAB SL PRN (16:34)
[2020-09-16] MEDS ORDERED: Ondansetron ODT 4 MG TAB PO PRN (16:34)
--- NOTE | 2020-09-16 16:59 | OP ---
DATE OF PROCEDURE: 09/16/2020 PREOPERATIVE DIAGNOSES: 1. Right colon cancers, a large cecal tumor, partially obstructing the small bowel, proximal transverse colon large polyp, unresectable endoscopically, completely excised polyp described as sigmoid, although more distal transverse colon, tattooed, identified. Adhesions from prior surgery. Preprocedural COVID screening positive, although asymptomatic. 2. Preoperative hemoglobin 12. 3. CEA level 10. 4. Cirrhosis noted on previous CAT scans. 5. Poor IV access. POSTOPERATIVE DIAGNOSES: 1. Right colon cancers, a large cecal tumor, partially obstructing the small bowel, proximal transverse colon large polyp, unresectable endoscopically, completely excised polyp described as sigmoid, although more distal transverse colon, tattooed, identified. Adhesions from prior surgery. Preprocedural COVID screening positive, although asymptomatic. 2. Preoperative hemoglobin 12. 3. CEA level 10. 4. Cirrhosis noted on previous CAT scans. 5. Poor IV access. 6. Slightly nodular liver. 7. The patient had a cecal tumor, proximal transverse colon tumor, polyp unresectable endoscopically, adhesions from prior surgery. PROCEDURE PERFORMED: 1. Exploratory laparotomy. 2. Extended right colectomy with primary ileocolic anastomosis. 3. Left subclavian vein central line. ESTIMATED BLOOD LOSS: 250 mL. BLOOD TRANSFUSIONS: None. Preoperative hemoglobin 12. Preoperative CEA level 10. CAT scan without metastatic disease obvious. ANESTHESIA: TAP block. DESCRIPTION OF PROCEDURE: The patient was taken to the operating room where under general anesthesia and TAP block, left paraclavicular area was prepared with ChloraPrep and draped in routine fashion. Seldinger technique used to place a left subclavian triple-lumen catheter, secured with interrupted 3-0 silk suture, sterile dressing applied. Each port aspirated blood, flushed with saline solution. The patient was placed in the dorsal lithotomy position. Abdomen was prepared with ChloraPrep. Buttocks and perineum prepared with Betadine and draped in routine fashion. An incision was made, centered about the umbilicus, carried down to skin and subcutaneous tissue to the midline fascia, making a midline incision. Grossly, the abdominal cavity was unremarkable except for large cecal tumor, palpated and the tattooed area in the proximal transverse colon, small palpable mass tattooed, and the distal transverse colon tattooed area without palpable abnormalities. Descending and sigmoid colon was normal. Right colon was mobilized along the peritoneal reflection. Right ureter kept free of harm. The middle colic vessels preserved. Transverse colon divided on the medial side of the tattooed area, representing the nonresectable polyp. Right colon mobilized. Gastrocolic ligament taken down. Transverse colon divided with a YODIT stapler to the patient's right of the middle colic vessels and mesentery serially divided between the LigaSure. Duodenum identified and kept free of harm. Right ileocolic pedicle dissected free, divided between clamps, ligated with 2-0 silk ties. Dissection carried up to the terminal ileum where it was divided about 6 inches distal to the ileocecal valve, divided with a YODIT stapler. Primary anastomosis created with a stapled YODIT 60 stapler and a 2nd fire of the YODIT stapler and the mesenteric defect closed with 3-0 silk. Good hemostasis noted. There was some venous bleeding at the root of the mesentery, controlled with 3-0 silk, accounting for the blood loss described. Good hemostasis noted. Surgicel applied. Abdominal cavity irrigated. Good hemostasis noted. Sponge and needle counts were correct. Closure was undertaken. Seprafilm was used between the viscera and abdominal wall. Noted inferiorly when I started, there were some omental adhesions from her previous hysterectomy, C-sections, omentum taken down with the ligature. Good hemostasis noted. Seprafilm had been placed. Midline fascia closed with continuous suture of #1 PDS. Skin and subcutaneous tissues thoroughly irrigated. Our gloves had been changed after the anastomosis. Skin approximated loosely with kianna. Edd incisional suction device applied. The patient tolerated the procedure well. Job ID: [id number]
--- NOTE | 2020-09-16 17:00 | RAD ---
SINGLE VIEW CHEST: DATE: 09/16/2020 COMPARISON: CT abdomen/pelvis dated 09/13/2020. 01/03/2020. HISTORY: Central line placement. FINDINGS: Single view of the chest shows a cardiomediastinal silhouette which is upper limits of normal in size . There is a left subclavian central venous catheter with its tip in the superior vena cava. No pneum othorax is appreciated. There is free air beneath the diaphragm from recent surgery. There is no evid ence of consolidation, mass, or pleural effusion. Degenerative changes are seen in the spine. IMPRESSION: 1. Status post central line placement without evidence of complication. 2. Free air beneath the diaphragm is likely related to recent surgery. POS: EAA
[2020-09-16] MEDS: Lactated Ringer's 1,000 ML IV SCH ×2 (18:55→21:16)
[2020-09-16] MEDS: Acetaminophen 500 MG TAB PO SCH (19:14)
[2020-09-16] MEDS: Ketorolac Tromethamine 30 MG/ML VIAL IVP SCH (19:15)
[2020-09-16] MEDS: Melatonin 3 MG TAB PO PRN (21:15)
[2020-09-16] MEDS: Gabapentin 100 MG CAP PO SCH (21:15)
[2020-09-17] MEDS: Acetaminophen 500 MG TAB PO SCH ×6 (00:30→22:45)
[2020-09-17] MEDS: Ketorolac Tromethamine 30 MG/ML VIAL IVP SCH ×3 (00:31→12:09)
[2020-09-17] MEDS: Lactated Ringer's 1,000 ML IV SCH ×4 (02:04→16:29)
[2020-09-17] MEDS: Lorazepam 1 MG TAB PO PRN (03:16)
[2020-09-17 06:30] LABS: #Lymphocytes 0.7 thou/uL (1.20-3.40); #Monocytes 0.6 thou/uL (0.11-0.59); #Neutrophils 4.3 thou/uL (1.40-6.50); %Basophils 0.3 % (0.0-1.0); %Lymphocytes 13.1 % (21.0-51.0); %Neutrophils 76.6 % (42.0-75.0); Hemoglobin 8.7 g/dL (12.0-16.0); Mean Corpuscular HGB CONC 31.9 g/dL (32.0-36.0); Mean Corpuscular Hemoglobin 27.8 pg (27.0-31.0); Mean Corpuscular Volume 87.3 fL (78.0-98.0); Mean Platelet Volume 8.7 fL (7.4-10.4); Platelet Count 121 thou/uL (130-400); RBC Distribution Width 13.1 % (11.5-14.5); Red Blood Cell (RBC) Count 3.13 mill/uL (4.20-5.40); White Blood Cell (WBC) Count 5.6 thou/uL (4.8-10.8)
[2020-09-17 06:52] LABS: Anion Gap 9 mmol/L (10-20); BUN (Urea Nitrogen) 5 mg/dL (9.8-20.1); Calc. Creatinine Clearance 93 mL/min (70-130); Calcium 7.6 mg/dL (7.8-10.44); Carbon Dioxide 26 mmol/L (23-31); Chloride 104 mmol/L (98-107); Glucose 146 mg/dL (83-110); Sodium 135 mmol/L (136-145)
[2020-09-17] MEDS: Gabapentin 100 MG CAP PO SCH ×2 (09:00→20:44)
[2020-09-17] MEDS: Enoxaparin Sodium 40 MG/0.4 ML SYRINGE SC SCH (10:31)
[2020-09-17 14:56] LABS: #Lymphocytes 1.4 thou/uL (1.20-3.40); #Monocytes 0.7 thou/uL (0.11-0.59); #Neutrophils 4.7 thou/uL (1.40-6.50); %Eosinophils 0.4 % (0.0-10.0); %Lymphocytes 19.9 % (21.0-51.0); %Monocytes 10.6 % (0.0-10.0); %Neutrophils 69.1 % (42.0-75.0); Hemoglobin 8.4 g/dL (12.0-16.0); Mean Corpuscular HGB CONC 31.3 g/dL (32.0-36.0); Mean Corpuscular Hemoglobin 27.6 pg (27.0-31.0); Mean Corpuscular Volume 88.1 fL (78.0-98.0); Mean Platelet Volume 8.9 fL (7.4-10.4); Platelet Count 113 thou/uL (130-400); RBC Distribution Width 13.3 % (11.5-14.5); Red Blood Cell (RBC) Count 3.04 mill/uL (4.20-5.40); White Blood Cell (WBC) Count 6.8 thou/uL (4.8-10.8)
--- NOTE | 2020-09-17 17:45 | PRG ---
DATE OF SERVICE: 09/17/2020 SUBJECTIVE: Ms. Garcia is doing well today. She denies any problems of breathing. She does not have a cough. She has not had a fever. Temperature 98.3 degrees, heart rate 88, blood pressure 130/81. She is found on preprocedural screening to be COVID positive. She denies any prior exposures. She states she does have allergies and occasional coughs and congestion, but no more than usual. The patient underwent laparotomy, extended right colectomy for a large cecal tumor and a more proximal transverse colon mass. This was open intraoperatively and the unresectable polyp noted to be as identified by tattooing and palpation of the proximal transverse colon, primary anastomosis performed. She denies experiencing any nausea, vomiting, or reflux. She is tolerating her full liquids well. She reports passing a small amount of flatus and stool today. OBJECTIVE: VITAL SIGNS: Temperature 98.3 degrees, heart rate 88, respiratory rate 20, blood pressure 130/81. Her Le has been removed and she is voiding. LUNGS: Clear to auscultation. CARDIAC: Regular rate and rhythm without murmur or gallop. ABDOMEN: Soft. Edd suction incision wound device is intact. Plan is to remove this prior to discharge. I personally got the patient up into a chair and she did well with independent mobility and standing and weightbearing. LABORATORY DATA: Hemoglobin is 8.7 this morning and 8.4 on recheck this afternoon, white count is 5.6. ASSESSMENT AND PLAN: 1. Anemia, stable. No indication for transfusion. Observe. Recheck CBC in the morning and then if stable, discontinue checks. 2. Cecal tumor. Proximal transverse colon polyp resected, preoperative CEA level 10. She did have a nodular liver. Past CAT scan suggested cirrhosis. She denies any knowledge of that, but states doctors have asked her about her past alcohol consumption, which she has not significant to consume. Overall, she is doing well and we would start discharge planning. She lived independently. She has family nearby. She states she has family can check on her. Given her asymptomatic COVID status today, we would ask test case developer began discussed with family and discharge planning for her to go home, perhaps stay with a family member and any other needs that she may have. We will saline lock her. Job ID: [id number]
--- NOTE | 2020-09-17 18:27 | PDOC.HOSPP ---
- Subjective Encounter Date: 09/17/20 Encounter Time: 11:00 Subjective: Seen for follow-up regarding bowel obstruction. No complaints today - Objective Vital Signs & Weight: Vital Signs (12 hours) Temp Pulse Resp BP Pulse Ox 09/17/20 15:58 98.3 F 88 20 130/81 96 09/17/20 11:28 98.3 F 83 18 92/59 L 95 09/17/20 08:07 98.2 F 85 18 114/69 92 L 09/17/20 08:00 92 L Weight Admit Weight 150 lb 0.048 oz Weight 150 lb 0.048 oz I&O: 09/16/20 09/17/20 09/18/20 06:59 06:59 06:59 Intake Total 0 1800 Output Total 1000 Balance 0 800 Result Diagrams: 09/17/20 14:33 09/17/20 05:31 Additional Labs: I reviewed patient's labs and [facility] Hospitalist ROS - Review of Systems Gastrointestinal: denies: nausea, vomiting, abdominal pain, diarrhea, con stipation, melena, hematochezia Genitourinary: denies: dysuria, frequency, incontinence, hematuria, retention - Medication Medications: Active Medications Generic Name Dose Route Start Last Admin Trade Name Freq PRN Reason Stop Dose Admin Acetaminophen 1,000 mg 09/16/20 17:00 09/17/20 16:28 Acetaminophen 500 Mg Tab PO 1,000 mg Q6H ALEX Administration Enoxaparin Sodium 40 mg 09/14/20 09:00 09/17/20 10:31 Enoxaparin Sodium 40 Mg/0.4 Ml Syringe SC 40 mg 0900 ALEX Administration Gabapentin 100 mg 09/16/20 21:00 09/17/20 09:00 Gabapentin 100 Mg Cap PO 100 mg BID ALEX Administration Hydralazine HCl 10 mg 09/15/20 05:31 09/16/20 05:45 Hydralazine 20 Mg/Ml Vial SLOW IVP 10 mg Q4H PRN Administration SBP>160 Lorazepam 1 mg 09/14/20 22:59 09/17/20 03:16 Lorazepam 1 Mg Tab PO 1 mg DAILY PRN Administration Anxiety Melatonin 3 mg 09/14/20 13:19 09/16/20 21:15 Melatonin 3 Mg Tab PO 3 mg HSPRN PRN Administration Insomnia Pantoprazole Sodium 40 mg 09/15/20 09:00 09/17/20 09:00 Pantoprazole 40 Mg Tab PO 40 mg DAILY ALEX Administration - Exam General Appearance: awake alert Eye: PERRL Neck: no thyromegaly Respiratory: CTAB Gastrointestinal: soft, non-tender Skin: no rashes Psychiatric: normal affect, normal behavior Hosp A/P - Plan -Assessment/plan Recurrent bowel obstruction Status post surgery for cecal tumor and transverse colon tumor. Clinically improving. Hyponatremia Resolved COVID-19 infection. Found on presurgery screening, patient is asymptomatic.
[2020-09-17] MEDS: Melatonin 3 MG TAB PO PRN (20:45)
[2020-09-17] MEDS: Ketorolac Tromethamine 30 MG/ML VIAL IVP PRN (20:45)
[2020-09-18] MEDS: Lorazepam 1 MG TAB PO PRN (00:24)
[2020-09-18] MEDS: Acetaminophen 500 MG TAB PO SCH ×4 (05:59→23:51)
[2020-09-18] MEDS: Enoxaparin Sodium 40 MG/0.4 ML SYRINGE SC SCH (09:02)
[2020-09-18] MEDS: Gabapentin 100 MG CAP PO SCH ×2 (09:02→20:57)
[2020-09-18] MEDS: Ketorolac Tromethamine 30 MG/ML VIAL IVP PRN ×2 (09:11→20:59)
--- NOTE | 2020-09-18 13:19 | PRG ---
DATE OF SERVICE: SUBJECTIVE: Polly Garcia is doing well today. She denies having any significant pain. She has soreness. She is very mobile. She is independently ambulatory. She gets out of bed by herself OBJECTIVE: VITAL SIGNS: 98.1 degrees, heart rate 90, respiratory rate 20, blood pressure 101/64. LUNGS: Clear to auscultation. CARDIAC: Rhythm without murmur or gallop. ABDOMEN: Soft. Good bowel sounds plus bowel movements plus flatus. No nausea or vomiting. No reflux. LABORATORY DATA: Labs none today. Pathology pending. ASSESSMENT AND PLAN: Doing well post laparotomy, right colon resection. 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 She has another polyp in the transverse colon resected. Pathology from the sigmoid colon polyp is benign and completely excised. I have talked to the Rehab Manager and have talked to the patient's son. The patient lives in a trailer house. The patient's family is available to help her and stay with her for few days. She was COVID positive on preprocedural screening, but asymptomatic from a covert standpoint. Plan is for her to be discharged home with home health nursing and family to assist her. She would follow up in my office next week for staple removal. She can shower and bathe and be independently ambulatory and we will place her on a regular diet today. Job ID: [id number]
--- NOTE | 2020-09-18 18:09 | PDOC.HOSPP ---
- Subjective Encounter Date: 09/18/20 Encounter Time: 12:00 Subjective: Patient seen for follow-up regarding bowel obstruction. She reports feeling better. - Objective Vital Signs & Weight: Vital Signs (12 hours) Temp Pulse Resp BP BP Pulse Ox 09/18/20 16:07 97.6 F 102 H 20 91/60 92 L 09/18/20 12:49 88 110/71 09/18/20 11:46 98.1 F 107 H 20 89/59 L 97 09/18/20 08:00 96 09/18/20 07:50 98.5 F 90 18 101/64 96 Weight Admit Weight 150 lb 0.048 oz Weight 150 lb 0.048 oz I&O: 09/17/20 09/18/20 09/19/20 06:59 06:59 06:59 Intake Total 1800 350 Output Total 1000 Balance 800 350 Result Diagrams: 09/17/20 14:33 09/17/20 05:31 Additional Labs: Labs and MAR reviewed by nc Hospitalist ROS - Review of Systems Gastrointestinal: denies: nausea, vomiting, abdominal pain, diarrhea, constipation, melena, hematochezia Genitourinary: denies: dysuria, frequency, incontinence, hematuria, retention - Medication Medications: Active Medications Generic Name Dose Route Start Last Admin Trade Name Freq PRN Reason Stop Dose Admin Acetaminophen 1,000 mg 09/16/20 17:00 09/18/20 16:23 Acetaminophen 500 Mg Tab PO 1,000 mg Q6H ALEX Administration Enoxaparin Sodium 40 mg 09/14/20 09:00 09/18/20 09:02 Enoxaparin Sodium 40 Mg/0.4 Ml Syringe SC 40 mg 0900 ALEX Administration Gabapentin 100 mg 09/16/20 21:00 09/18/20 09:02 Gabapentin 100 Mg Cap PO 100 mg BID ALEX Administration Hydralazine HCl 10 mg 09/15/20 05:31 09/16/20 05:45 Hydralazine 20 Mg/Ml Vial SLOW IVP 10 mg Q4H PRN Administration SBP>160 Ketorolac Tromethamine 15 mg 09/17/20 17:01 09/18/20 09:11 Ketorolac Tromethamine 30 Mg/Ml Vial IVP 09/21/20 17:02 15 mg Q6H PRN Administration Pain Lorazepam 1 mg 09/14/20 22:59 09/18/20 00:24 Lorazepam 1 Mg Tab PO 1 mg DAILY PRN Administration Anxiety Melatonin 3 mg 09/14/20 13:19 09/17/20 20:45 Melatonin 3 Mg Tab PO 3 mg HSPRN PRN Administration Insomnia Pantoprazole Sodium 40 mg 09/15/20 09:00 09/18/20 09:02 Pantoprazole 40 Mg Tab PO 40 mg DAILY ALEX Administration - Exam General Appearance: awake alert ENT: no oropharyngeal lesions Neck: supple Heart: RRR Respiratory: CTAB Gastrointestinal: soft, non-tender Skin: no rashes Psychiatric: normal affect, normal behavior Hosp A/P - Plan -Assessment/plan Recurrent bowel obstruction From colon cancer. Status post surgery. Hyponatremia Resolved COVID-19 infection. Found on presurgery screening, patient is asymptomatic. Not on active treatments. Likely home in 24 to 48 hours.
[2020-09-18] MEDS ORDERED: Sodium Chloride 0.9% 500 ML IVPB SCH (19:00)
[2020-09-19] MEDS: Acetaminophen 500 MG TAB PO SCH ×2 (05:12→11:53)
[2020-09-19] MEDS ORDERED: Ferrous Sulfate 325 MG TAB PO SCH (08:00)
[2020-09-19] MEDS: Gabapentin 100 MG CAP PO SCH (09:28)
[2020-09-19] MEDS: Enoxaparin Sodium 40 MG/0.4 ML SYRINGE SC SCH (09:28)
[2020-09-19 11:14] VITALS: BP 124/75; TEMP 98.1
--- NOTE | 2020-09-19 12:05 | PDOC.DS.DS ---
Provider - Provider Date of Admission: 09/15/20 16:28 Date of Discharge: 09/19/20 Admitting Provider: Demarco Luke MD Consultations: Gastroentrology (Dr. Puentes), General Surgery (Dr. Tate) Primary Care Physician: Jozef Hale MD Course - Hospital Course Hospital Course: Discharge diagnoses: 1. Cecal cancer 2. Bowel obstruction 3. Hyponatremia 4. Covid 19 test positive Hospital course: Patient is a pleasant 74-year-old lady who was admitted to the hospital on September 14, 2020 for bowel obstruction. Her bowel obstruction resolved shortly after admission. However, on the CT scan there was a question of terminal ileal stricture. Gastroenterology service was consulted. She underwent colonoscopy on September 15, 2020. She was found to have a large friable malignant appearing mass filling the cecum and proximal ascending colon. She also had a large polyp at 70 cm, estimated to be in the transverse colon. She had a 1.5 cm sigmoid colon polyp, which was completely removed. She was then seen by general surgery service. On September 16, 2020 she underwent exploratory laparotomy, extended right colectomy with primary ileocolic anastomosis and left subclavian vein central line placement. She had pre-surgical COVID-19 test done, which came back positive. She was asymptomatic in terms of COVID-19. She continued to improve and is being discharged home with home health. Discharge destination: Home Total amount of time spent coordinating this discharge: 32 minutes Resuscitation Status: 09/14/20 02:39 Resuscitation Status Routine Resuscitation Status: FULL: Full Resuscitation - Labs Lab Results: 09/17/20 14:33 09/17/20 05:31 Abnormal Lab Results - Last 48 hrs 09/17/20 14:33: RBC 3.04 L, Hgb 8.4 L, Hct 26.8 L, MCHC 31.3 L, Plt Count 113 L, Lymphocytes % 19.9 L, Monocytes % 10.6 H, Monocytes # 0.7 H - Physical Exam Vitals: Vital Signs (12 hours) Temp Pulse Resp BP Pulse Ox 09/19/20 11:13 98.1 F 91 18 124/75 98 09/19/20 08:00 98 09/19/20 07:29 98.6 F 90 17 112/61 98 Weight Admit Weight 150 lb 0.048 oz Weight 150 lb 0.048 oz Physical Exam: The patient was seen and examined on the day of discharge. Plan - Discharge Medications Home Medications: Medication Instructions Recorded Confirmed Type Omeprazole Magnesium [Prilosec] 20 mg PO DAILY 10/23/18 09/14/20 History Ventolin HFA Inhaler 2 puff INH Q6HR PRN 06/19/19 09/14/20 History Melatonin 3 mg PO HS PRN 08/06/19 09/14/20 History Lorazepam [Ativan] 1 mg PO DAILY PRN 01/03/20 09/14/20 History Ferrous Sulfate [Iron] 325 mg PO DAILY 09/14/20 09/14/20 History Allergies: amoxicillin Allergy (Verified 09/14/20 03:18) codeine Allergy (Verified 09/14/20 03:18) Sulfa (Sulfonamide Antibiotics) Allergy (Verified 09/14/20 03:18) sulfamethoxazole [From Bactrim] Allergy (Verified 09/14/20 03:18) trimethoprim [From Bactrim] Allergy (Verified 09/14/20 03:18) - Discharge Instructions Discharge Instructions:: Shower/bathe & ambulate. Leave wound open in shower or bath. HOME HEALTH NURSE TO REMOVE MOE LATE NEXT WEEK, APPLY 1/2 INCH STERI STRIPS PATIENT MAY BATHE/SHOWER WITH OPEN WOUND WASHING WITH SOAP AND WATER AND PAT DRY, LEAVE OPEN TO AIR Use [id number] acetaminophen or ibuprofen for pain management, use as directed. Self isolate until September 25 2020. Activity:: Activity as Tolerated (no lifting > 25 # x 6 wks) - Follow up Plan Referrals: [facility] [Outside] Mohit Tate MD [Active] - 10/03/20 3:20 pm Deshawn Puentes MD [Active] - Carlos England MD [Active] - 10/03/20 1:00 pm Jozef Hale MD [Primary Care Provider] - 3 Days Disposition: HOME Quality - Care Measures CORE MEASURES:: N/A
--- NOTE | 2020-09-21 15:06 | EKG ---
Test Reason : Blood Pressure : / mmHG Vent. Rate : 088 BPM Atrial Rate : 088 BPM P-R Int : 156 ms QRS Dur : 086 ms QT Int : 388 ms P-R-T Axes : 043 -59 045 degrees QTc Int : 469 ms Normal sinus rhythm Possible Left atrial enlargement Pulmonary disease pattern Left anterior fascicular block Abnormal ECG Confirmed by DAWSON CORTEZ M.D. ([id number]), general expeditor ZI DE JESUS ([id number]) on 09/21/2020 3:06:20 PM Referred By: Confirmed By:DAWSON CORTEZ M.D.
== END 2020-09-19 14:02 | disposition home health service (06) | DRG 329 ==
LOC: ERS 19:16 → 3SE 09-14 00:13 → OBSVTOIN 09-15 16:28 → T4-A 09-16 18:09
PROVIDERS: ADMIT Student in an Organized Health Care Education/Training Program; ATTEND Internal Medicine
PROC: 0DBN8ZZ Excision of Sigmoid Colon, Via Natural or Artificial Opening Endoscopic (ICD-10-PCS; 2020-09-15)
PROC: 0DBF0ZZ Excision of Right Large Intestine, Open Approach (ICD-10-PCS; principal; 2020-09-16)
PROC: 02HV33Z Insertion of Infusion Device into Superior Vena Cava, Percutaneous Approach (ICD-10-PCS; 2020-09-16)
PROC: 3E0M05Z Introduction of Adhesion Barrier into Peritoneal Cavity, Open Approach (ICD-10-PCS; 2020-09-16)
DX: C18.0 Malignant neoplasm of cecum (principal); U07.1 COVID-19; E87.1 Hypo-osmolality and hyponatremia; Z23 Encounter for immunization; K21.9 Gastro-esophageal reflux disease without esophagitis; J44.9 Chronic obstructive pulmonary disease, unspecified; R79.89 Other specified abnormal findings of blood chemistry; D50.9 Iron deficiency anemia, unspecified; E78.5 Hyperlipidemia, unspecified; F41.9 Anxiety disorder, unspecified; K64.8 Other hemorrhoids; K63.5 Polyp of colon; K74.60 Unspecified cirrhosis of liver; Z88.1 Allergy status to other antibiotic agents; Z88.5 Allergy status to narcotic agent; Z88.2 Allergy status to sulfonamides; Z88.8 Allergy status to other drugs, medicaments and biological substances; Z90.49 Acquired absence of other specified parts of digestive tract; Z90.710 Acquired absence of both cervix and uterus; Z79.899 Other long term (current) drug therapy
CPT/HCPCS: 36415; 71045; 74177; 80048; 80053; 81003; 81015; 82378; 83690; 84484; 85025; 86850; 86900; 86901; 88305; 88309; 88329; 93005; 96372; 96374; 96375; G0378; J0360; J1100; J1650; J1885; J2370; J2405; J2704; J2765; J3010; J3490; J7030; P9045; Q9967; S0028; U0002

== ENCOUNTER 2020-10-01 14:23 | Inpatient (IN) | payer MEDICARE, OTHER ==
[2020-10-01] MEDS ORDERED: Sodium Chloride 0.9% 1,000 ML IV SCH (15:15)
[2020-10-01] MEDS ORDERED: MEROPENEM 1 GM/50 ML 1 GM in Premix Bag 1 BAG IVPB SCH (15:15)
--- NOTE | 2020-10-01 15:21 | RAD ---
CHEST 1 VIEW: INDICATION: Small bowel obstruction and fever. COMPARISON: Prior exam dated 09/16/2020. FINDINGS: There is persistent cardiomegaly. Pneumoperitoneum has resolved. No consolidation, pleural effusion , or pneumothorax is evident. IMPRESSION: Resolution of previously seen pneumoperitoneum. Stable cardiomegaly. POS: TPC
[2020-10-01 16:17] LABS: Hemoglobin 9.2 g/dL (12.0-16.0); Mean Corpuscular HGB CONC 32.3 g/dL (32.0-36.0); Mean Corpuscular Hemoglobin 27.6 pg (27.0-31.0); Mean Corpuscular Volume 85.5 fL (78.0-98.0); Mean Platelet Volume 6.6 fL (7.4-10.4); Platelet Count 417 thou/uL (130-400); RBC Distribution Width 14.3 % (11.5-14.5); Red Blood Cell (RBC) Count 3.33 mill/uL (4.20-5.40)
[2020-10-01] MEDS ORDERED: Acetaminophen 500 MG TAB ONE ×2 (16:22→16:26)
[2020-10-01 16:36] LABS: Band 2 % (5-11); Lymphocytes 10 % (21-51); MDiff Complete? YES; Monocytes 5 % (0-10); Neutrophil 83 % (42-75); Platelet Morphology Comment Appears Increased; Polychromasia SLIGHT = 2-3 cells (100X) (0-2/hpf)
[2020-10-01 16:40] LABS: ALT (SGPT) 36 U/L (8-55); AST (SGOT) 86 U/L (5-34); Albumin 2.4 g/dL (3.4-4.8); Alkaline Phosphatase 759 U/L (40-110); Anion Gap 11 mmol/L (10-20); BUN (Urea Nitrogen) 8 mg/dL (9.8-20.1); Bilirubin, Total 1.7 mg/dL (0.2-1.2); Calc. Creatinine Clearance 0 mL/min (70-130); Calcium 7.3 mg/dL (7.8-10.44); Carbon Dioxide 24 mmol/L (23-31); Chloride 99 mmol/L (98-107); Globulin 3.7 g/dL (2.4-3.5); Glucose 107 mg/dL (83-110); Lipase 25 U/L (8-78); Potassium 4.3 mmol/L (3.5-5.1); Protein, Total 6.1 g/dL (5.8-8.1); Sodium 130 mmol/L (136-145)
--- NOTE | 2020-10-01 16:55 | CT ---
CT abdomen and pelvis with IV contrast HISTORY: Abdominal pain. Fever. Recent colon resection. COMPARISON: 09/13/2020. FINDINGS: Cirrhotic appearance of the liver again demonstrated. Small amount of free fluid now eviden t throughout the abdomen and pelvis. Gallbladder surgically absent. Old right lower lateral rib fractures. Partially calcified cortical scarring of the left kidney and tiny cortical cyst are stable. A 0.9 cm hemangioma within the anterior inferior aspect of the spleen is unchanged. Inflammation within the right abdomen surrounds a multilobular peripherally enhancing thin-walled gas and fluid collection that measures up to 9.2 cm length by 8.9 cm width by 6.8 cm depth. It approaches the internal right abdominal wall just below the level of the liver. The most medial lobul ation compresses the second portion of the duodenum. IMPRESSION : Large multilobulated intraperitoneal abscess abutting the right lateral abdominal wall just below the liver. Interval postoperative changes. Cirrhosis and other chronic-type findings are otherwise stable.
[2020-10-01 18:27] LABS: Lactic Acid 2.4 mmol/L (0.5-2.2)
[2020-10-01 19:22] LABS: INR-International Normal Ratio 1.2; Prothrombin Time 15.5 sec (12.0-14.7)
[2020-10-01 19:23] LABS: PTT 38.6 sec (22.9-36.1)
[2020-10-01] MEDS ORDERED: hydrALAZINE 20 MG/ML VIAL SLOW IVP PRN (19:27)
[2020-10-01] MEDS ORDERED: Ondansetron ODT 4 MG TAB PO PRN (19:27)
[2020-10-01] MEDS ORDERED: Lorazepam 2 MG/ML VIAL SLOW IVP PRN (19:27)
[2020-10-01] MEDS ORDERED: Lorazepam 1 MG TAB PO PRN (19:33)
[2020-10-01] MEDS ORDERED: Albuterol 200 PUFF (6.7GM INHALER) INH PRN (19:53)
[2020-10-01] MEDS: Morphine 2 MG/ML VIAL SLOW IVP PRN (21:20)
[2020-10-01] MEDS: Ondansetron PF 4 MG/2 ML Vial IVP PRN (21:22)
[2020-10-01] MEDS: Enoxaparin Sodium 40 MG/0.4 ML SYRINGE SC SCH (21:26)
[2020-10-01] MEDS: Famotidine 20 MG TAB PO SCH (21:26)
[2020-10-01] MEDS: Sodium Chloride 0.9% 1,000 ML IV SCH (21:30)
[2020-10-01 21:46] VITALS: BMI 25.9
[2020-10-02] MEDS: metroNIDAZOLE 500 MG in Premix Bag 1 BAG IVPB SCH ×4 (00:20→22:27)
--- NOTE | 2020-10-02 01:26 | HP ---
HISTORY OF PRESENT ILLNESS: Polly Garcia is a 75-year-old female, who is status post open right colectomy for a T3 N0 M0 right colon cancer. She had undergone colonoscopy on 09/15/[address] Puentes. This is a very large cecal tumor causing a bowel obstruction. Preoperative CEA level was 10. Preoperative hemoglobin 12. She is noted to have cirrhosis on prior CAT scans. The patient was discharged home and she came to the ER today because she felt and had some fluid wound. She has been living at home. Home health has been seeing her. Evaluation of the periumbilical wound reveals that she has a slight opening with some purulent bloody drainage. The wound was opened slightly and noted the fascia to be intact. Gauze dressing was applied. The CAT scan did reveal a subhepatic fluid collection that I discussed with Dr. Anne and this probably is amenable to percutaneous drainage. This seems to be separate from her ileocolic anastomosis. The patient in the ER was noted to have normal comprehensive metabolic profile except for bilirubin is 1.7. Lactate 2.9 initial check and 2.4 subsequent check. Her white count is 9, hemoglobin 9.2, and differential unremarkable. She states she is having good bowel function. No fever. She is slightly tender right abdomen. ALLERGIES: AMOXICILLIN, CODEINE, SULFA CAUSES GI UPSET. SOCIAL HISTORY: Tobacco, none. Alcohol none. MEDICATIONS: At home; 1. Iron. 2. Omeprazole. 3. Lorazepam. 4. Cholestyramine. 5. Ventolin inhaler. PAST SURGICAL HISTORY: Colonoscopy, right colon resection as noted above, open reduction and internal fixation distal right radius, hysterectomy, three C-sections, and cholecystectomy, open. PAST MEDICAL HISTORY: Asthma, partial bowel obstruction, previous hospitalization without surgical intervention more recently, and right colectomy for T3 N0 M0 cecal tumor. REVIEW OF SYSTEMS: Noncontributory. FAMILY HISTORY: Noncontributory. PHYSICAL EXAMINATION: VITAL SIGNS: Blood pressure 126/67, heart rate 96, respiratory rate 18, and temperature 98 degrees. HEAD, EARS, EYES, NOSE, AND THROAT: Unremarkable. LUNGS: Clear to auscultation. CARDIAC: Regular rate and rhythm without murmur or gallop. ABDOMEN: Soft. Mild tenderness in right upper quadrant, right abdomen. Midline wound well healed except inferiorly, where it had been slightly open and some purulent material drained. Fascia appears to be intact. EXTREMITIES: Unremarkable. ASSESSMENT AND PLAN: 1. Intraabdominal fluid collection with air-fluid level, right upper quadrant gas and fluid collection, 9.2 cm x 8.9 cm x 6.8 cm. We will plan CT-guided drainage tomorrow. 2. Status post right colon resection. 3. Open wound abdomen. Wound Care evaluation. Outpatient wound care. 4. Cirrhosis. Job ID: [id number]
[2020-10-02] MEDS: Ondansetron PF 4 MG/2 ML Vial IVP PRN ×2 (03:11→09:29)
[2020-10-02] MEDS: Morphine 2 MG/ML VIAL SLOW IVP PRN ×2 (03:11→09:29)
[2020-10-02 06:10] LABS: ALT (SGPT) 30 U/L (8-55); AST (SGOT) 65 U/L (5-34); Albumin 1.9 g/dL (3.4-4.8); Alkaline Phosphatase 612 U/L (40-110); Anion Gap 12 mmol/L (10-20); BUN (Urea Nitrogen) 10 mg/dL (9.8-20.1); Bilirubin, Total 1.4 mg/dL (0.2-1.2); Calc. Creatinine Clearance 123 mL/min (70-130); Carbon Dioxide 22 mmol/L (23-31); Chloride 100 mmol/L (98-107); Globulin 3.3 g/dL (2.4-3.5); Glucose 95 mg/dL (83-110); Potassium 4.8 mmol/L (3.5-5.1); Protein, Total 5.2 g/dL (5.8-8.1); Sodium 129 mmol/L (136-145)
[2020-10-02] MEDS: Sodium Chloride 0.9% 1,000 ML IV SCH ×2 (06:56→09:29)
[2020-10-02] MEDS: Famotidine 20 MG TAB PO SCH ×2 (08:11→19:35)
[2020-10-02] MEDS ORDERED: Metoclopramide HCl 10 MG/2 ML VIAL IVP PRN (11:52)
[2020-10-02] MEDS ORDERED: Metoclopramide HCl 10 MG/2 ML VIAL IVP SCH (12:00)
[2020-10-02] MEDS ORDERED: Sodium Bicarbonate 2.5 MEQ/5 ML VIAL ONE (13:32)
[2020-10-02] MEDS ORDERED: Fentanyl 100 MCG/2 ML VIAL ONE (13:33)
[2020-10-02] MEDS ORDERED: Lidocaine 1% PF 5 ML VIAL ONE (13:33)
--- NOTE | 2020-10-02 14:47 | CT ---
CT Abdomen Pelvis WO Con 10/02/2020 12:00 AM HISTORY: Imaging findings suggestive of intraperitoneal abscess collection. CT scan with oral contrast was req uested to evaluate for possible communication of the fluid and gas collection with a loop of bowel. COMPARISON: 10/01/2020 Technique: Multiple contiguous axial CT images are obtained through the abdomen and pelvis without IV contrast. Coronal reformats are provided. FINDINGS: This examination is limited for the evaluation of solid organs and vascular structures due to the lac k of intravenous contrast. Lower Chest: Trace bilateral pleural effusions are present with minimal atelectasis. Minimal pericard ial effusion. Liver: Cirrhotic morphology of the liver. Gallbladder: Not visualized likely surgically absent. Pancreas: Grossly normal nonenhanced CT appearance. Spleen: Low-density lesion seen on postcontrast imaging is not visualized on this exam. Adrenals: Grossly normal nonenhanced CT appearance. Kidneys and ureters: Residual contrast is seen within each renal collecting system. There is scarring and cortical based calcification lateral aspect superior pole left kidney. Urinary bladder: Partially distended with contrast. Reproductive Organs: Uterus is small or surgically absent. Lymph Nodes: No enlarged lymph nodes. Bowel: Postoperative changes related to right hemicolectomy. There is no extravasation of contrast se en in the region of the small bowel colonic anastomosis. No dilated loops of small bowel are seen. Colonic diverticulosis is visualized. Small hiatal hernia is present. Peritoneum: The large lobulated fluid and gas collection in the right upper quadrant just inferior to the liver is again seen with mass effect on the second portion of the duodenum. A smaller fluid collection is seen inferior and medial to this location unchanged from prior study and measures 5.3 c m craniocaudal x4.4 cm transverse x3.8 cm AP. Moderate amount of intraperitoneal free fluid is seen greatest adjacent to the liver and in the pelvi s similar to prior exam. Vessels: Vascular calcifications in the abdominal aorta and iliac arteries.. Abdominal Wall: Midline surgical scar with small amount of fluid seen in this region likely attributa ble to postoperative change. A defined fluid collection is not identified. There is suggestion of a small midline wound near the level of the umbilicus. Mild subcutaneous edema is seen. Bones: Degenerative changes in the spine. IMPRESSION: 1. Lobulated abscess collection right upper quadrant unchanged from prior study. 2. Additional small fluid collection within the lower abdomen/upper pelvis just to the right of midli ne. 3. Moderate amount of ascites. 4. Minimal pericardial effusion with trace pleural effusions. 5. Colonic diverticulosis and postoperative changes related to right hemicolectomy. Contrast opacific ation of loops of small bowel and opacified portion of the colon does not demonstrate communication with the abdominal fluid collections, and there is no extravasation of contrast seen in region of sma ll bowel colonic anastomosis.
--- NOTE | 2020-10-02 15:42 | CT ---
PROCEDURE: CT Peritoneal Abscess Drainage PROVIDED CLINICAL HISTORY: Right upper quadrant abscess collection. COMPARISON: CT abdomen on 10/02/2020 and 10/01/2020 TECHNIQUE: After informed consent was obtained, the patient was placed on the CT scan table in the supine positi on. Limited noncontrasted CT images were obtained through the level of the right upper quadrant fluid and gas collection with grid localizer in place. An area was marked and then meticulously prepp ed and draped in usual sterile fashion. Skin and subcutaneous tissues were infiltrated with buffered 1% lidocaine for local anesthesia at the intended puncture site. The collection was accessed with a 21-gauge needle, and a 0.018 inch guidewire was placed. Positioning was confirmed with axial noncontrasted CT images. The needle was ex changed over a 0.018 inch guidewire for a 5 [place] introducer sheath. A 0.035 inch Amplatz guidewire was placed and position was confirmed with axial noncontrasted CT images. The introducer sheath was exchanged over the guidewire for an 8 [place] tissue dilator followed by jeni cement of an 8 [place] cope loop all-purpose drainage catheter. Final position was confirmed with axial noncontrasted CT images. Approximately 75 mL of brownish purulent material was aspirated. The c atheter was placed to gravity drainage and sutured in place utilizing 2-0 Ethilon suture material. A dry sterile dressing was placed. The patient tolerated the procedure well and without immediate complication. Patient was transported to her hospital room in stable condition. IMPRESSION: 1. Left upper quadrant abscess collection. 2. Technically successful CT-guided percutaneous abscess drainage. Specimen was sent for labs.
--- NOTE | 2020-10-02 16:15 | PRG ---
DATE OF SERVICE: 10/02/2020 SUBJECTIVE: Ms. Garcia this morning was doing well when I saw her. Later today, she had nausea, but has since resolved. OBJECTIVE: VITAL SIGNS: Temperature 97.6 degrees, heart rate 94, and blood pressure 119/72. LUNGS: Clear to auscultation. CARDIAC: Regular rate and rhythm without murmur or gallop. ABDOMEN: Soft. Wound Care will place a wound VAC on for her wound. LABORATORY DATA: Basic metabolic profile is normal this morning. Sodium 129. Since I have seen her this morning since the time of this dictation, she has had a CT-guided drainage of the fluid collection in the right upper quadrant. Repeat CAT scan with oral contrast without IV contrast does not reveal any changes to suggest an internal fistula. The material drained was purulent and foul smelling, however. Gram stain is pending. ASSESSMENT AND PLAN: Intra-abdominal abscess, clinically doing well, not septic. We would plan to monitor overnight and more than likely she will be able to be discharged home in the next day or 2 with outpatient management of her drain. We will see how she does clinically overnight. Job ID: [id number]
[2020-10-02] MEDS: traMADol HCl 50 MG TAB PO PRN (18:17)
[2020-10-02] MEDS: Enoxaparin Sodium 40 MG/0.4 ML SYRINGE SC SCH (19:36)
[2020-10-02] MEDS: Acetaminophen 500 MG TAB PO PRN (19:51)
[2020-10-03] MEDS: Sodium Chloride 0.9% 1,000 ML IV SCH ×2 (00:13→06:38)
[2020-10-03] MEDS: metroNIDAZOLE 500 MG in Premix Bag 1 BAG IVPB SCH ×2 (05:29→13:53)
[2020-10-03 05:53] LABS: #Lymphocytes 1.2 thou/uL (1.20-3.40); #Monocytes 1.1 thou/uL (0.11-0.59); #Neutrophils 10.2 thou/uL (1.40-6.50); %Basophils 0.1 % (0.0-1.0); %Eosinophils 0.2 % (0.0-10.0); %Lymphocytes 9.3 % (21.0-51.0); %Monocytes 9.1 % (0.0-10.0); %Neutrophils 81.3 % (42.0-75.0); Hemoglobin 7.4 g/dL (12.0-16.0); Mean Corpuscular HGB CONC 31.1 g/dL (32.0-36.0); Mean Corpuscular Hemoglobin 26.6 pg (27.0-31.0); Mean Corpuscular Volume 85.4 fL (78.0-98.0); Mean Platelet Volume 6.2 fL (7.4-10.4); Platelet Count 401 thou/uL (130-400); RBC Distribution Width 14.8 % (11.5-14.5); White Blood Cell (WBC) Count 12.5 thou/uL (4.8-10.8)
[2020-10-03 06:16] LABS: Anion Gap 10 mmol/L (10-20); BUN (Urea Nitrogen) 10 mg/dL (9.8-20.1); Calc. Creatinine Clearance 110 mL/min (70-130); Calcium 6.9 mg/dL (7.8-10.44); Carbon Dioxide 23 mmol/L (23-31); Chloride 98 mmol/L (98-107); Glucose 97 mg/dL (83-110); Potassium 4.5 mmol/L (3.5-5.1); Sodium 126 mmol/L (136-145)
[2020-10-03] MEDS: Famotidine 20 MG TAB PO SCH ×2 (09:51→20:11)
--- NOTE | 2020-10-03 10:23 | CT ---
PROCEDURE: CT Peritoneal Abscess Drainage PROVIDED CLINICAL HISTORY: Right upper quadrant abscess collection. COMPARISON: CT abdomen on 10/02/2020 and 10/01/2020 TECHNIQUE: After informed consent was obtained, the patient was placed on the CT scan table in the supine positi on. Limited noncontrasted CT images were obtained through the level of the right upper quadrant fluid and gas collection with grid localizer in place. An area was marked and then meticulously prepp ed and draped in usual sterile fashion. Skin and subcutaneous tissues were infiltrated with buffered 1% lidocaine for local anesthesia at the intended puncture site. The collection was accessed with a 21-gauge needle, and a 0.018 inch guidewire was placed. Positioning was confirmed with axial noncontrasted CT images. The needle was ex changed over a 0.018 inch guidewire for a 5 [place] introducer sheath. A 0.035 inch Amplatz guidewire was placed and position was confirmed with axial noncontrasted CT images. The introducer sheath was exchanged over the guidewire for an 8 [place] tissue dilator followed by jeni cement of an 8 [place] cope loop all-purpose drainage catheter. Final position was confirmed with axial noncontrasted CT images. Approximately 75 mL of brownish purulent material was aspirated. The c atheter was placed to gravity drainage and sutured in place utilizing 2-0 Ethilon suture material. A dry sterile dressing was placed. The patient tolerated the procedure well and without immediate complication. Patient was transported to her hospital room in stable condition. IMPRESSION: 1. Left upper quadrant abscess collection. 2. Technically successful CT-guided percutaneous abscess drainage. Specimen was sent for labs. Transcribed Date/Time: 10/03/2020 10:22 AM
--- NOTE | 2020-10-03 11:30 | PRG ---
DATE OF SERVICE: 10/03/2020 SUBJECTIVE: Polly Garcia is doing well today. She underwent CT-guided drainage of large abscess in right upper abdomen. Gram stain performed reveals gram-negative rods. Volume output since yesterday's drainage is 350 mL. They are irrigating that drain twice a day into the peritoneal cavity and aspirating it and also irrigating into the bag to maintain tube patency. The patient overall is feeling well. She has had minimal pain. Temperature 98.2 degrees, heart rate 91, blood pressure 135/85. The patient's white count is 12.5, up from 9 yesterday. Her differential is unremarkable. The patient has not been septic. Her vital signs have been normal. She does have a T3 N0 M0 colon cancer for which she was to see Oncology, Dr. England, this week, but that appointment was missed due to this hospitalization. The patient overall is tolerating her diet and seems to be doing well. Family requests that she go to correction to help with the drain management, and she does have some cognitive impairment from her age with some mild confusion but is eating well with good bowel function. OBJECTIVE: LUNGS: Clear to auscultation. CARDIAC: Regular rate and rhythm without murmur or gallop. ABDOMEN: Soft, nontender. PLAN: At this point, we will plan arrangements for correction. She does have hyponatremia, and we will ask Nephrology to see her for that. Her BUN and creatinine are normal. Job ID: [id number]
[2020-10-03] MEDS: metroNIDAZOLE 500 MG TAB PO SCH ×2 (14:23→20:11)
--- NOTE | 2020-10-03 15:08 | CON ---
DATE OF CONSULTATION: This is a Nephrology consult. REASON FOR CONSULTATION: Hyponatremia. HISTORY OF PRESENT ILLNESS: This is a 75-year-old female, who had surgery, was noted to have a sodium of 130 which decreased to 126 today, so I was consulted. The patient denies any nausea, vomiting, chest pain with weakness. The patient has a poor appetite. PAST MEDICAL HISTORY: Significant for a colectomy, cecal tumor, hypertension, asthma, colon surgery, colon resection, radiosurgery, hysterectomy, . SOCIAL: No alcohol or drug use. FAMILY HISTORY: Negative for ESRD. ALLERGIES: REVIEWED. HOME MEDICATIONS: List reviewed. HOSPITAL MEDICATIONS: Reviewed. REVIEW OF SYSTEMS: Fifteen-point system was performed, negative except for positive noted above. HEENT: Eyes intact, no diplopia. Ears: No hearing loss or earache. Nose: No discharge or bleeding. CHEST: No cough or phlegm. ABDOMEN: No nausea or vomiting. GENITOURINARY: No hematuria. No Le catheter. MUSCULOSKELETAL: No low back pain. No joint swelling or pain. NEUROLOGICAL: No syncope. No seizures. SKIN: No complaints of rash or itching. PSYCHIATRIC: No depression. CONSTITUTIONAL: No weight loss or loss of appetite. PHYSICAL EXAMINATION: GENERAL: The patient is awake and alert. Vital Signs: Afebrile, pulse 95, breathing at 16, blood pressure 124/74. HEENT: Head normocephalic and atraumatic. Eyes intact, no ulcers. Nose intact, no ulcers. Ears intact, no ulcers. NECK: Supple. No JVD. CHEST: Symmetrical and clear. CARDIOVASCULAR: Shows S1 and S2, no rub, no murmur. GASTROINTESTINAL: Abdomen is soft, bowel sounds positive. EXTREMITIES: Show no edema or ulcers. SKIN: Shows no rash or petechiae. MUSCULOSKELETAL: Shows no joint swelling or stiffness. GENITOURINARY: Shows no Le or CVA tenderness. NEUROLOGIC: Motor intact. Cranial nerves intact. LABORATORY DATA: Reviewed. IMPRESSION: 1. Chronic kidney disease stage 1, stable. 2. 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 3. Dyspnea. 4. Anemia, stable. 5. Hypoalbuminemia, recommend increase protein intake. No indication for dialysis. Job ID: [id number]
[2020-10-03] MEDS: Acetaminophen 500 MG TAB PO PRN (16:19)
[2020-10-03 17:13] LABS: Anion Gap 8 mmol/L (10-20); BUN (Urea Nitrogen) 9 mg/dL (9.8-20.1); Calc. Creatinine Clearance 110 mL/min (70-130); Carbon Dioxide 23 mmol/L (23-31); Chloride 98 mmol/L (98-107); Glucose 112 mg/dL (83-110); Potassium 4.3 mmol/L (3.5-5.1); Sodium 125 mmol/L (136-145)
[2020-10-03] MEDS: traMADol HCl 50 MG TAB PO PRN (18:20)
[2020-10-03] MEDS: Melatonin 3 MG TAB PO PRN (20:11)
[2020-10-03] MEDS: Enoxaparin Sodium 40 MG/0.4 ML SYRINGE SC SCH (20:11)
[2020-10-04] MEDS: traMADol HCl 50 MG TAB PO PRN ×2 (02:30→19:18)
--- NOTE | 2020-10-04 09:46 | PDOC.GSPN ---
Surgery Progress Note: Subj - Subjective Narrative: Mrs. Garcia is a 75 y/o female with a hx of right colon cancer T3N0. she underwent colectomy on 09/16/20 and returned with right sided abdominal pain two weeks later with CT showing air fluid levels. A perc drain was placed on 10/02. Today, drain output is 150mL of reddish appearing fluid. She is doing well, was able to eat breakfast and has been having solid bowel movements. Surgery Progress Note: Obj - Vital signs Vital signs: Vital Signs - Most Recent Temp Pulse Resp BP Pulse Ox 97.5 F L 95 16 144/79 H 96 10/04/20 07:05 10/04/20 07:05 10/04/20 07:05 10/04/20 07:05 10/04/20 07:05 - Physical Exam Cardiovascular: regular rate and rhythm Respiratory: clear to auscultation Abdomen: soft, non tender Surgery Progress Note: Results - Labs Result Diagrams: 10/03/20 05:40 10/04/20 09:25 Surgery Progress Note: A/P - Plan Plan: Plan is for arrangement for [facility] with drain in place and follow up CT scan in 1 week. Addendum - Physician - Physician Attestation Date/Time: 10/04/20 2935 I personally performed or re-performed the physical examination and medical decision making. I have verified all student documentation or findings, including history, physical exam and/or medical decision making. doing well. drain purulent await placement
[2020-10-04] MEDS: metroNIDAZOLE 500 MG TAB PO SCH ×3 (09:50→21:52)
[2020-10-04] MEDS: Famotidine 20 MG TAB PO SCH ×2 (09:50→21:52)
[2020-10-04 09:52] LABS: Anion Gap 8 mmol/L (10-20); BUN (Urea Nitrogen) 10 mg/dL (9.8-20.1); Calc. Creatinine Clearance 112 mL/min (70-130); Calcium 7.1 mg/dL (7.8-10.44); Carbon Dioxide 25 mmol/L (23-31); Chloride 97 mmol/L (98-107); Glucose 129 mg/dL (83-110); Potassium 4.6 mmol/L (3.5-5.1); Sodium 125 mmol/L (136-145)
--- NOTE | 2020-10-04 10:27 | PRG ---
DATE OF SERVICE: 10/04/2020 SUBJECTIVE: A 75-year-old female being seen for hyponatremia. The patient denies nausea, vomiting or chest pain. OBJECTIVE: GENERAL: The patient is awake, alert. VITAL SIGNS: Afebrile, pulse 95, breathing 16, blood pressure 122/74. HEENT: Head normocephalic and atraumatic. Eyes intact, no ulcers. Nose intact, no ulcers. Ears intact, no ulcers. Neck: Supple. No JVD. Chest: Symmetrical and clear. Cardiovascular: Shows S1 and S2, no rub, no murmur. Gastrointestinal: Abdomen is soft, bowel sounds positive. Extremities: Show no edema or ulcers. Skin: Shows no rash or petechiae. Musculoskeletal: Shows no joint swelling or stiffness. Genitourinary: Shows no Le or CVA tenderness. Neurologic: Motor intact. Cranial nerves intact. LABS: Show hemoglobin was 7.4. Sodium is 125. 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 Recommend tighter fluid restriction to 800 mL. Medication based on GFR appropriate. No indication for hypertonic saline. Job ID: [id number]
--- NOTE | 2020-10-04 13:46 | PQF ---
CLINICAL DOCUMENTATION CLARIFICATION FORM: Dear : Bebeto Date / Time: 10/04/201317 Please exercise your independent, professional judgment in responding to the clarification form. Clinical indicators are provided on the bottom of this form for your review Please check appropriate box(es): [ x] Intra-abdominal abscess is a complication of current/recent surgery [ ] Intra-abdominal abscess is not a complication of current/recent surgery [ x ] Other diagnosis __complication from cirrhosis & colon resection [ ] Unable to determine In addition, please specify: Present on Admission (POA): [ ] Yes [ ] No [ ] Unable to determine Physician Signature: Date/Time: For continuity of documentation, please document condition throughout progress notes and discharge summary. To be completed by CDI/Coding staff for physician review: Present Clinical Indicators - Signs / Symptoms / Labs Results and Location in Medical Record [ ] [ x ] Altered vitals HR 95-109/min - ED V/S 10/01/20 [ x] Pain/ drainage from site Slightly open wound with purulent drainage- Attending H&P 10/01/20 [ ] [ x ] Culture Klebsiella & Streptococcus + Abdominal abscess culture 10/02/20 [ ] [ ] [ x ] Infection Postoperative intra-abdominal abscess- ED Doctor Note 10/01/20 Present Risk Factors Results and Location in Medical Record [ x ] Recent surgery Open colectomy 09/16/20- General Surgery PN 10/04/20 [ ] [ ] [ ] Present Treatments Results and Location in Medical Record [ x ] Antibiotics IV Flagyl & Levaquin- MAR 10/01/20 [ x ] IV Fluids NS @ 120ml/hr - MAR 10/01/20 [ x ] Surgical procedure/ Evaluation Peritoneal abscess drainage with drain catheter placed CT 10/02/20 [ ] CDS/Prop Drawer Signature: Maria C Francisco Phone #: [phone] Date/Time: 10/04/201317 This is a permanent part of the Medical Record [facility]
[2020-10-04 17:03] LABS: Anion Gap 8 mmol/L (10-20); BUN (Urea Nitrogen) 10 mg/dL (9.8-20.1); Calc. Creatinine Clearance 103 mL/min (70-130); Calcium 7.2 mg/dL (7.8-10.44); Carbon Dioxide 28 mmol/L (23-31); Chloride 95 mmol/L (98-107); Glucose 133 mg/dL (83-110); Potassium 4.7 mmol/L (3.5-5.1); Sodium 126 mmol/L (136-145)
[2020-10-04] MEDS: Melatonin 3 MG TAB PO PRN (19:18)
[2020-10-04] MEDS: Enoxaparin Sodium 40 MG/0.4 ML SYRINGE SC SCH (21:52)
[2020-10-05] MEDS: traMADol HCl 50 MG TAB PO PRN (03:20)
[2020-10-05 06:37] LABS: Anion Gap 9 mmol/L (10-20); BUN (Urea Nitrogen) 11 mg/dL (9.8-20.1); Calc. Creatinine Clearance 117 mL/min (70-130); Calcium 7.1 mg/dL (7.8-10.44); Carbon Dioxide 27 mmol/L (23-31); Chloride 95 mmol/L (98-107); Glucose 109 mg/dL (83-110); Potassium 4.5 mmol/L (3.5-5.1); Sodium 126 mmol/L (136-145)
--- NOTE | 2020-10-05 09:12 | PRG ---
DATE OF SERVICE: 10/05/2020 SUBJECTIVE: Ms. Garcia has no complaints. She is tolerating regular diet. Her abdomen is soft, nontender. Wounds are healing well. The drain is still purulent. ASSESSMENT: Status post percutaneous drain of abdominal fluid collection after right colectomy for T3 N0 right colon cancer. PLAN: She should be going to prison at some point, trying to find somewhere that takes the drain. Job ID: [id number]
[2020-10-05] MEDS: Famotidine 20 MG TAB PO SCH ×2 (09:29→20:06)
[2020-10-05] MEDS: metroNIDAZOLE 500 MG TAB PO SCH ×3 (09:29→20:06)
--- NOTE | 2020-10-05 14:30 | PDOC.BPN ---
- Brief Progress Note Encounter Date: 10/05/20 Encounter Time: 14:21 Subjective: Patient is seen and examined in the room. No acute overnight events. Review of systems Gen.: No fever, no chills All the 14 systems reviewed except for the ones mentioned above are negative Physical examination Vital Signs Temp 97.7 F 10/05/20 10:56 Pulse 92 10/05/20 10:56 Resp 12 10/05/20 10:56 BP 123/68 10/05/20 10:56 Pulse Ox 96 10/05/20 12:00 Intake & Output 10/04/20 10/05/20 10/05/20 18:59 06:59 18:59 Intake Total 720 70 Output Total 30 700 Balance 690 -630 Weight 146 lb 3.2 oz Intake: Intake, IV Amount 0 20 Oral 720 50 Output: Drainage 30 350 Abdominal Wound Vac 300 abdominal drain right 30 50 side Urine 350 Other: Voiding Method Diaper Bedside Commode # Unmeasured Voids 3 # Bowel Movements 3 1 Constitutional: comfortable, not in pain HEENT: Mucous membranes moist, no icterus Neck: Trachea midline, no lymphadenopathy Heart: Regular rate and rhythm; no murmurs Lungs: Air entry equal bilateral; no wheezes Abdomen: Soft; non-tender; Midline surgical scar with wound VAC noted; right upper quadrant TELLO drain+ Extremities: No calf tenderness; no ulcers, no bruises Neurological: Patient is awake, following commands Skin: No rash, no ulcers Psychological: Not agitated Labs and Imaging reviewed Laboratory Results - last 24 hr 10/04/20 10/05/20 16:23 05:49 Sodium 126 L 126 L Potassium 4.7 4.5 Chloride 95 L 95 L Carbon Dioxide 28 27 Anion Gap 8 L 9 L BUN 10 11 Creatinine 0.50 L 0.44 L Estimated GFR (MDRD) Greater than 90 Greater than 90 Glucose 133 H 109 Calcium 7.2 L 7.1 L Active Medications Generic Name Dose Route Start Last Admin Trade Name Freq PRN Reason Stop Dose Admin Acetaminophen 1,000 mg 10/01/20 19:30 10/03/20 16:19 Acetaminophen 500 Mg Tab PO 1,000 mg Q6H PRN Administration Moderate to Severe Pain (6-10) Albuterol Sulfate 2 puff 10/01/20 19:53 Albuterol 200 Puff (6.7gm Inhaler) INH Q6HR PRN SOB &/or Wheezing Enoxaparin Sodium 40 mg 10/01/20 21:00 10/04/20 21:52 Enoxaparin Sodium 40 Mg/0.4 Ml Syringe SC 40 mg 2100 ALEX Administration Famotidine 20 mg 10/01/20 21:00 10/05/20 09:29 Famotidine 20 Mg Tab PO 20 mg BID ALEX Administration Hydralazine HCl 10 mg 10/01/20 19:27 Hydralazine 20 Mg/Ml Vial SLOW IVP Q4H PRN SBP > 170 or DBP > 100 Levofloxacin 500 mg 10/04/20 06:00 10/05/20 05:33 Levofloxacin 500 Mg Tab PO 500 mg 0600 ALEX Administration Lorazepam 2 mg 10/01/20 19:27 Lorazepam 2 Mg/Ml Vial SLOW IVP Q6H PRN Anxiety/Agitation Lorazepam 1 mg 10/01/20 19:33 10/02/20 19:46 Lorazepam 1 Mg Tab PO 1 mg DAILYPRN PRN Administration Anxiety Melatonin 3 mg 10/01/20 19:33 10/04/20 19:18 Melatonin 3 Mg Tab PO 3 mg HSPRN PRN Administration Insomnia Metoclopramide HCl 10 mg 10/02/20 11:52 Metoclopramide Hcl 10 Mg/2 Ml Vial IVP Q6H PRN Nausea Metronidazole 500 mg 10/03/20 15:00 10/05/20 13:13 Metronidazole 500 Mg Tab PO 500 mg TID ALEX Administration Morphine Sulfate 2 mg 10/01/20 19:27 10/02/20 09:29 Morphine 2 Mg/Ml Vial SLOW IVP 2 mg Q2H PRN Administration Mild Pain (1-3) Ondansetron HCl 4 mg 10/01/20 19:27 10/02/20 09:29 Ondansetron Pf 4 Mg/2 Ml Vial IVP 4 mg Q6H PRN Administration Nausea Ondansetron HCl 4 mg 10/01/20 19:27 Ondansetron Odt 4 Mg Tab PO Q6H PRN Nausea/Vomiting Pantoprazole Sodium 40 mg 10/02/20 09:00 10/05/20 09:29 Pantoprazole 40 Mg Tab PO 40 mg DAILY ALEX Administration Sodium Chloride 10 ml 10/01/20 19:27 Flush - Normal Saline 10 Ml Syringe IVF PRN PRN Saline Flush Tramadol HCl 50 mg 10/01/20 19:30 10/05/20 03:20 Tramadol Hcl 50 Mg Tab PO 50 mg Q4H PRN Administration Moderate Pain (4-6) Assessment and plan Hyponatremia-ADH mediated Anemia Intra-abdominal abscess s/p CT guided drainage Patient's sodium levels are stable. Continue fluid restriction for now.check urine studies-Less than 20, indicative of hypovolemic hyponatremia. Will start on low-dose normal saline. Review fluid restriction in am. D/w ELEANOR
[2020-10-05] MEDS: Enoxaparin Sodium 40 MG/0.4 ML SYRINGE SC SCH (20:06)
[2020-10-06] MEDS ORDERED: Sodium Chloride 0.9% 1,000 ML IV SCH (00:45)
[2020-10-06] MEDS: traMADol HCl 50 MG TAB PO PRN (00:51)
[2020-10-06 07:05] LABS: Albumin 1.9 g/dL (3.4-4.8); Anion Gap 10 mmol/L (10-20); BUN (Urea Nitrogen) 11 mg/dL (9.8-20.1); BUN/Creatinine Ratio 22.45; Calc. Creatinine Clearance 105 mL/min (70-130); Calcium 7.1 mg/dL (7.8-10.44); Carbon Dioxide 25 mmol/L (23-31); Chloride 95 mmol/L (98-107); Glucose 106 mg/dL (83-110); Potassium 4.5 mmol/L (3.5-5.1); Sodium 125 mmol/L (136-145)
[2020-10-06 07:13] LABS: Phosphorus 1.8 mg/dL (2.3-4.7)
[2020-10-06] MEDS: metroNIDAZOLE 500 MG TAB PO SCH ×3 (07:28→19:47)
[2020-10-06] MEDS: Famotidine 20 MG TAB PO SCH ×2 (07:28→19:47)
--- NOTE | 2020-10-06 09:23 | PRG ---
DATE OF SERVICE: 10/06/2020 SUBJECTIVE: Ms. Garcia has no complaints. She is tolerating regular diet. She is ambulatory. She is afebrile, and her vital signs are stable. Her drain put out 90 for the day. Her wounds are healing well. ASSESSMENT: Fluid collection status post right colectomy for T3 N0 right colon cancer, doing well, stable, ready to go to rehab whenever bed is available. Job ID: [id number]
--- NOTE | 2020-10-06 13:22 | PDOC.BPN ---
- Brief Progress Note Encounter Date: 10/06/20 Encounter Time: 13:22 Subjective: Seen and examined in the room. She does not have new complaints. Review of systems Gen.: No fever, no chills All the 14 systems reviewed except for the ones mentioned above are negative Physical examination Vital Signs Temp 98.2 F 10/06/20 15:33 Pulse 89 10/06/20 15:33 Resp 12 10/06/20 15:33 BP 119/72 10/06/20 15:33 Pulse Ox 97 10/06/20 15:33 Intake & Output 10/05/20 10/06/20 10/06/20 18:59 06:59 18:59 Intake Total 480 540 Output Total 60 30 Balance 420 510 Intake: Intake, IV Amount 300 Oral 480 240 Output: Drainage 60 30 Abdominal Wound Vac 0 abdominal drain right 60 30 side Other: Voiding Method Bedside Commode Diaper Toilet # Unmeasured Voids 3 2 # Bowel Movements 1 2 Constitutional: Patient is currently not in pain or discomfort HEENT: Mucous membranes moist, no icterus Neck: Trachea midline, no lymphadenopathy Heart: Regular rate and rhythm; no murmurs Lungs: Air entry equal bilateral; no wheezes Abdomen: Soft; non-tender; wound VAC noted; right upper quadrant TELLO drain+ Extremities: No calf tenderness; no ulcers, no bruises Neurological: Patient is awake, following commands Skin: No rash, no ulcers Psychological: Not agitated Labs and Imaging reviewed Laboratory Results - last 24 hr 10/06/20 06:11 Sodium 125 L Potassium 4.5 Chloride 95 L Carbon Dioxide 25 Anion Gap 10 BUN 11 Creatinine 0.49 L Estimated GFR (MDRD) Greater than 90 BUN/Creatinine Ratio 22.45 Glucose 106 Calcium 7.1 L Phosphorus 1.8 L Albumin 1.9 L Active Medications Generic Name Dose Route Start Last Admin Trade Name Freq PRN Reason Stop Dose Admin Acetaminophen 1,000 mg 10/01/20 19:30 10/03/20 16:19 Acetaminophen 500 Mg Tab PO 1,000 mg Q6H PRN Administration Moderate to Severe Pain (6-10) Albuterol Sulfate 2 puff 10/01/20 19:53 Albuterol 200 Puff (6.7gm Inhaler) INH Q6HR PRN SOB &/or Wheezing Enoxaparin Sodium 40 mg 10/01/20 21:00 10/05/20 20:06 Enoxaparin Sodium 40 Mg/0.4 Ml Syringe SC 40 mg 2100 ALEX Administration Famotidine 20 mg 10/01/20 21:00 10/06/20 07:28 Famotidine 20 Mg Tab PO 20 mg BID ALEX Administration Hydralazine HCl 10 mg 10/01/20 19:27 Hydralazine 20 Mg/Ml Vial SLOW IVP Q4H PRN SBP > 170 or DBP > 100 Sodium Chloride 1,000 mls @ 50 mls/hr 10/06/20 00:45 10/06/20 00:53 Normal Saline 0.9% IV 10/06/20 20:44 1,000 mls .Q20H ALEX Administration Levofloxacin 500 mg 10/04/20 06:00 10/06/20 05:31 Levofloxacin 500 Mg Tab PO 500 mg 0600 ALEX Administration Lorazepam 2 mg 10/01/20 19:27 Lorazepam 2 Mg/Ml Vial SLOW IVP Q6H PRN Anxiety/Agitation Lorazepam 1 mg 10/01/20 19:33 10/02/20 19:46 Lorazepam 1 Mg Tab PO 1 mg DAILYPRN PRN Administration Anxiety Melatonin 3 mg 10/01/20 19:33 10/04/20 19:18 Melatonin 3 Mg Tab PO 3 mg HSPRN PRN Administration Insomnia Metoclopramide HCl 10 mg 10/02/20 11:52 Metoclopramide Hcl 10 Mg/2 Ml Vial IVP Q6H PRN Nausea Metronidazole 500 mg 10/03/20 15:00 10/06/20 14:14 Metronidazole 500 Mg Tab PO 500 mg TID ALEX Administration Morphine Sulfate 2 mg 10/01/20 19:27 10/02/20 09:29 Morphine 2 Mg/Ml Vial SLOW IVP 2 mg Q2H PRN Administration Mild Pain (1-3) Ondansetron HCl 4 mg 10/01/20 19:27 10/02/20 09:29 Ondansetron Pf 4 Mg/2 Ml Vial IVP 4 mg Q6H PRN Administration Nausea Ondansetron HCl 4 mg 10/01/20 19:27 Ondansetron Odt 4 Mg Tab PO Q6H PRN Nausea/Vomiting Pantoprazole Sodium 40 mg 10/02/20 09:00 10/06/20 07:28 Pantoprazole 40 Mg Tab PO 40 mg DAILY ALEX Administration Sodium Chloride 10 ml 10/01/20 19:27 Flush - Normal Saline 10 Ml Syringe IVF PRN PRN Saline Flush Tramadol HCl 50 mg 10/01/20 19:30 10/06/20 00:51 Tramadol Hcl 50 Mg Tab PO 50 mg Q4H PRN Administration Moderate Pain (4-6) Assessment and plan Hyponatremia-ADH mediated Anemia Intra-abdominal abscess s/p CT guided drainage Patient sodium level is stable, urine studies reveal hypovolemic hyponatremia. Patient is currently on low-dose normal saline. Continue to monitor sodium levels Medications reviewed. Discussed with ELEANOR
[2020-10-06 18:28] LABS: Anion Gap 12 mmol/L (10-20); BUN (Urea Nitrogen) 11 mg/dL (9.8-20.1); Calc. Creatinine Clearance 89 mL/min (70-130); Calcium 7.1 mg/dL (7.8-10.44); Carbon Dioxide 18 mmol/L (23-31); Chloride 101 mmol/L (98-107); Glucose 120 mg/dL (83-110); Potassium 5.1 mmol/L (3.5-5.1); Sodium 126 mmol/L (136-145)
[2020-10-06] MEDS: Enoxaparin Sodium 40 MG/0.4 ML SYRINGE SC SCH (19:47)
[2020-10-06] MEDS: Acetaminophen 500 MG TAB PO PRN (23:30)
[2020-10-07] MEDS: traMADol HCl 50 MG TAB PO PRN (01:51)
[2020-10-07 05:56] LABS: Albumin 1.9 g/dL (3.4-4.8); Anion Gap 7 mmol/L (10-20); BUN (Urea Nitrogen) 9 mg/dL (9.8-20.1); BUN/Creatinine Ratio 19.57; Calc. Creatinine Clearance 112 mL/min (70-130); Calcium 7.1 mg/dL (7.8-10.44); Carbon Dioxide 26 mmol/L (23-31); Chloride 98 mmol/L (98-107); Glucose 107 mg/dL (83-110); Potassium 4.3 mmol/L (3.5-5.1); Sodium 127 mmol/L (136-145)
[2020-10-07 06:05] LABS: Phosphorus 1.8 mg/dL (2.3-4.7)
[2020-10-07] MEDS: metroNIDAZOLE 500 MG TAB PO SCH ×3 (08:50→19:43)
[2020-10-07] MEDS: Famotidine 20 MG TAB PO SCH ×2 (08:50→19:43)
[2020-10-07] MEDS ORDERED: Sodium Phosphate 30 MMOL in Sodium Chloride 0.9% 250 ML 250 ML IVPB SCH (10:00)
[2020-10-07 12:35] LABS: Hemoglobin 8.4 g/dL (12.0-16.0); Mean Corpuscular Volume 86.9 fL (78.0-98.0); Mean Platelet Volume 12.2 fL (7.4-10.4); Platelet Count 33 thou/uL (130-400); RBC Distribution Width 15.3 % (11.5-14.5); Red Blood Cell (RBC) Count 3.13 mill/uL (4.20-5.40); White Blood Cell (WBC) Count 9.8 thou/uL (4.8-10.8)
[2020-10-07 12:36] LABS: #Eosinphils 0.1 thou/uL (0.0-0.7); #Lymphocytes 1.2 thou/uL (1.20-3.40); #Monocytes 1.2 thou/uL (0.11-0.59); #Neutrophils 7.3 thou/uL (1.40-6.50); %Basophils 0.5 % (0.0-1.0); %Eosinophils 0.8 % (0.0-10.0); %Lymphocytes 12.5 % (21.0-51.0); %Monocytes 11.9 % (0.0-10.0); %Neutrophils 74.2 % (42.0-75.0)
[2020-10-07 12:37] LABS: MDiff Complete? YES; Platelet Morphology Comment Appears Decreased; Polychromasia MODERATE = 3-4 cells (100X) (0-2/hpf); Schistocytes SLIGHT = 2-5 cells (100X) (0-1/hpf)
--- NOTE | 2020-10-07 16:16 | PRG ---
DATE OF SERVICE: 10/07/2020 SUBJECTIVE: Patient was seen and examined at bedside and overnight events noted. Patient denies any shortness of breath or chest pain or palpitation. No history of nausea or vomiting or diarrhea or fever or chills or cramps. OBJECTIVE: General: This is a well built female, in no apparent distress. Vital Signs: blood pressure 133/77. HEENT: Atraumatic, normocephalic. Oral mucosa is moist. Neck: Supple. Cardiovascular: S1, S2 heard. Rate and rhythm regular. Respiratory: Clear to auscultation. Gastrointestinal: Abdomen is soft. Musculoskeletal: No tenderness. No edema. Dermatologic: No skin rash. Neurologic: Alert and awake and oriented x3. No focal neurologic deficits. Moving all the extremities. Psychiatric: Mood and affect normal. LABORATORY DATA: Potassium 4.3, sodium 127, BUN 9, creatinine ASSESSMENT AND PLAN: 1. 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 Sodium level slowly getting corrected. IV fluids stopped. Continue on fluid restriction and we will monitor. 2. Edema. 3. History of hypertension, anemia of chronic disease. 4. IV fluids stopped. Monitor sodium. Patient admits to drinking more fluid. We will put on fluid restriction and monitor. Job ID: [id number]
--- NOTE | 2020-10-07 16:29 | PRG ---
DATE OF SERVICE: 10/07/2020 SUBJECTIVE: Ms. Garcia is doing well. She remains afebrile. The drainage from her percutaneous drain, right upper abdomen, there is a slightly cloudy serous fluid. Cultures revealed E coli and Streptococcus. It is sensitive to almost everything but she is allergic to penicillin. Her platelet count today is 28,000; hemoglobin had dropped to 7.4, it was rechecked, at 8.4; platelet count this morning was 33,000. Lovenox has been discontinued. The patient states she is eating well, having bowel movements. OBJECTIVE: LUNGS: Clear to auscultation. CARDIAC: Regular rate and rhythm without murmur or gallop. ABDOMEN: Soft. ASSESSMENT AND PLAN: 1. Thrombocytopenia, observe another day, stop her Lovenox, possibly discharge home tomorrow pending her platelet count. 2. Intraabdominal abscess, status post percutaneous drainage. Continue irrigating the tubing. Hopefully, can be discharged home in the next day or two. 3. T3 N0 M0 colon cancer. Outpatient appointments for CAT scan, Oncology, and Dr. Tate next week. Follow up her abscess. Job ID: [id number]
[2020-10-08 06:30] LABS: Band 2 % (5-11); Eosinophils 1 % (0-10); Hemoglobin 7.8 g/dL (12.0-16.0); Lymphocytes 10 % (21-51); MDiff Complete? YES; Mean Corpuscular HGB CONC 30.8 g/dL (32.0-36.0); Mean Corpuscular Hemoglobin 26.4 pg (27.0-31.0); Mean Corpuscular Volume 85.5 fL (78.0-98.0); Mean Platelet Volume 17.7 fL (7.4-10.4); Monocytes 6 % (0-10); Neutrophil 81 % (42-75); Platelet Count 9 thou/uL (130-400); Platelet Morphology Comment Appears Decreased; RBC Distribution Width 15.4 % (11.5-14.5); Red Blood Cell (RBC) Count 2.97 mill/uL (4.20-5.40); White Blood Cell (WBC) Count 9.9 thou/uL (4.8-10.8)
[2020-10-08] MEDS: metroNIDAZOLE 500 MG TAB PO SCH (07:55)
[2020-10-08] MEDS: Famotidine 20 MG TAB PO SCH (07:55)
--- NOTE | 2020-10-08 09:24 | PRG ---
DATE OF SERVICE: SUBJECTIVE: Ms. Garcia today is doing well. She had a bowel movement last night. She is tolerating her diet. She denies any abdominal pain. OBJECTIVE: VITAL SIGNS: Temperature 97.9 degrees, heart rate 98-103, blood pressure 106/67. CT-guided drainage is clear fluid. It has drained 30 mL in the last 24 hours. This morning, her white count is 9; hemoglobin 7.8, relatively stable; platelet count, however, is down to 9000, down from 33,000 yesterday and 401,000 the day before. Lovenox was stopped 2 days ago. Levaquin will be stopped today. LUNGS: Clear to auscultation. CARDIAC: Regular rate and rhythm without murmur or gallop. ABDOMEN: Soft, nontender. Drainage catheter in place, schedule for followup CAT scan next week. ASSESSMENT AND PLAN: 1. Deconditioning. The patient has a wound VAC in place and is on antibiotics. We discontinued the Lovenox yesterday because of her thrombocytopenia, and we will discontinue her Levaquin p.o. today. I am not sure that she needs oral antibiotics. I have consulted Dr. Kessler for his opinion. The CT-guided drain may suffice. Continue to follow her thrombocytopenia. Once that is improved, she can be transferred to long term. She has a followup CAT scan of the abdomen and pelvis next week and followup in my office scheduled. 2. Allergies to amoxicillin. 3. History in the past suggestive of cirrhosis, although the patient is unaware of this. Radiological findings suggest that. Job ID: [id number]
[2020-10-08 10:35] LABS: Phosphorus 1.9 mg/dL (2.3-4.7)
[2020-10-08] MEDS ORDERED: Sodium Phosphate 30 MMOL in Sodium Chloride 0.9% 250 ML 250 ML IVPB SCH (11:00)
[2020-10-08] MEDS: cefTRIAXone\\ROCEPHIN 2 GM in Sodium Chloride 0.9% 100 ML IVPB SCH (14:01)
--- NOTE | 2020-10-08 14:02 | CON ---
DATE OF CONSULTATION: REASON FOR CONSULTATION: Intraabdominal abscess. HISTORY OF PRESENT ILLNESS: A 75-year-old who has a history of COPD and recurrent episodes of small-bowel obstruction since 2019. Eventually, she underwent colonoscopy at beginning of this year, which showed a cecal mass. 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 The pathologic tumor stage was T3 N0, so she underwent resection and primary anastomosis with Dr. Tate on 09/16 and went home and then she noticed this sensation of something bursting inside her abdomen and she started draining this serous liquid and came back to the emergency room on 10/01 with nausea, inability to eat or drink, cough, and abdominal pain and drainage. A CT showed a large about 9 x 9 x 7 cm abscess in the right upper quadrant. This was drained percutaneously under CT guidance. Currently, Ms. Garcia is feeling more comfortable. She has negative pressure dressing over the mid abdomen incision and a pigtail catheter inserted in the right upper quadrant. She has a peripheral IV access. She does not appear in distress. No headaches. No sore throat, odynophagia, or dysphagia. No back pain. No dyspnea or chest pain. No cough. The abdominal pain has improved. Voiding without difficulty. No joint symptoms or skin disorder other than the operative skin changes. PAST MEDICAL HISTORY: 1. COPD. 2. SBO x3 with 3 admissions since 2019. 3. GERD. 4. Anemia. PAST SURGICAL HISTORY: 1. . 2. Appendectomy. 3. Cholecystectomy. 4. Hysterectomy. 5. Wrist repair. SOCIAL HISTORY: A , recently from a heart attack. Quit smoking more than 10 years ago. ALLERGIES: AMOXICILLIN, BACTRIM, AND CODEINE. CURRENT MEDICATIONS: I do not see any antimicrobial treatment right now, needs to be started. She is on p.r.n. medications for nausea, anxiety, and hypertension. PHYSICAL EXAMINATION: VITAL SIGNS: Temperature has remained normal except for one at 99.3 earlier. Other vital signs are normal. Slightly tachycardic, saturating 98 on room air. SKIN: A midline negative pressure dressing over the mid abdominal drainage site as well as the right upper quadrant pigtail drainage catheter. Peripheral IV access. She is voiding in the diaper. No lymphadenopathy. HEENT: Ocular movements conjugate. Oral cavity normal. She has numerous teeth in place in very good shape considering her age. No jugular vein distention. No thyromegaly. LUNGS: Symmetric, clear breath sounds. No crackles or wheezing. HEART: S1 and S2. Regular rate without murmurs. [place] impulse is normal. ABDOMEN: Soft, not distended. Minimal tenderness in the midline and around the catheter. Question of early bladder distention. EXTREMITIES: No joint inflammatory activity. No edema. Pulses 1+ in dorsalis pedis. Plantar responses are flexor. Moves all extremities equally. NEUROLOGIC: Cognitive function appears to be intact. LABORATORY DATA: White cell count has gone up to 12.5, down to 9.9, hemoglobin 7.8, MCV 85, and platelets down to 9000. Chemistry with a creatinine 0.46. Urinalysis was not done. INR 1.2. Microbiology with Klebsiella oxytoca and Strep anginosus group, Klebsiella with jeffrey-susceptibility. IMAGING STUDIES: With the abscess described above. Chest x-ray from the with pneumoperitoneum, which had resolved. This is postsurgical. ASSESSMENT: 1. Chronic obstructive pulmonary disease. 2. Liver cirrhosis based on imaging studies only, not a clinical diagnosis. 3. 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 The stage is T3 N0. No apparent metastases. 4. Intraperitoneal abscess, which was identified following discharge subsequent to the patient's initial surgical resection and re-anastomosis. No evidence of leak is apparent on imaging studies. 5. Severe thrombocytopenia. DISCUSSION: The reason for this abscess is not clear at this point. There is no apparent leak identified, but we will have to continue monitoring for this in the future. She may have had a transient leak that is sealed with the inoculation of the peritoneum by those pathogens. Anaerobes are likely as well. We will start her on Rocephin and Flagyl. 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 I do not see any heparin having been administered to her or other drugs that could be in this such acute fashion lead to this marked drop. We should see improvement with treatment of the infection. Once the abscess is drained, it has already been drained, we will have to follow up the imaging study and I think that for discharge planning she would be eligible for combination of probably Augmentin plus Flagyl or Cipro plus Flagyl plus amoxicillin or cefpodoxime plus Flagyl. The duration of therapy will be variable depends on the resolution of the abscess both by laboratory and imaging studies. Job ID: [id number]
[2020-10-08] MEDS: metroNIDAZOLE 500 MG in Premix Bag 1 BAG IVPB SCH ×2 (14:47→22:09)
--- NOTE | 2020-10-08 15:53 | PRG ---
DATE OF SERVICE: 10/08/2020 SUBJECTIVE: Patient was seen and examined at bedside and overnight events noted. Patient denies any shortness of breath or chest pain or palpitation. No history of nausea or vomiting or diarrhea or fever or chills or cramps. OBJECTIVE: GENERAL: This is a well-built female, in no apparent distress. VITAL SIGNS: Temperature . Heart Rate 102. Respiratory rate 18. Blood pressure HEENT: Atraumatic, normocephalic. Oral mucosa is moist. NECK: Supple. CARDIOVASCULAR: S1, S2 heard. Rate and rhythm regular. RESPIRATORY: Clear to auscultation. GASTROINTESTINAL: Abdomen is soft. MUSCULOSKELETAL: No tenderness. No edema. DERMATOLOGIC: No skin rash. NEUROLOGIC: Alert and awake and oriented x3. No focal neurologic deficits. Moving all the extremities. PSYCHIATRIC: Mood and affect normal. LABORATORY DATA: Not done today. ASSESSMENT AND PLAN: 1. Hyponatremia. Limit fluid intake. Monitor labs. 2. Edema. 3. Hypertension. Limit fluid intake. Monitor labs. Recheck sodium in the morning. Job ID: [id number]
[2020-10-08 18:21] LABS: #Lymphocytes 1.3 thou/uL (1.20-3.40); #Monocytes 1.1 thou/uL (0.11-0.59); %Basophils 0.1 % (0.0-1.0); %Eosinophils 0.4 % (0.0-10.0); %Lymphocytes 13.9 % (21.0-51.0); %Monocytes 11.5 % (0.0-10.0); %Neutrophils 74.1 % (42.0-75.0); Hemoglobin 7.8 g/dL (12.0-16.0); Mean Corpuscular HGB CONC 30.9 g/dL (32.0-36.0); Mean Corpuscular Hemoglobin 26.2 pg (27.0-31.0); Mean Corpuscular Volume 84.8 fL (78.0-98.0); Mean Platelet Volume 17.8 fL (7.4-10.4); Platelet Count 5 thou/uL (130-400); RBC Distribution Width 15.2 % (11.5-14.5); Red Blood Cell (RBC) Count 2.98 mill/uL (4.20-5.40); White Blood Cell (WBC) Count 9.4 thou/uL (4.8-10.8)
[2020-10-09] MEDS: metroNIDAZOLE 500 MG in Premix Bag 1 BAG IVPB SCH ×3 (07:18→23:17)
[2020-10-09 07:25] LABS: ALT (SGPT) 20 U/L (8-55); AST (SGOT) 44 U/L (5-34); Albumin 2.1 g/dL (3.4-4.8); Alkaline Phosphatase 498 U/L (40-110); Anion Gap 9 mmol/L (10-20); BUN (Urea Nitrogen) 12 mg/dL (9.8-20.1); Bilirubin, Total 0.6 mg/dL (0.2-1.2); Calc. Creatinine Clearance 112 mL/min (70-130); Calcium 7.1 mg/dL (7.8-10.44); Carbon Dioxide 27 mmol/L (23-31); Chloride 99 mmol/L (98-107); Globulin 3.2 g/dL (2.4-3.5); Glucose 108 mg/dL (83-110); Phosphorus 2.1 mg/dL (2.3-4.7); Potassium 3.8 mmol/L (3.5-5.1); Protein, Total 5.3 g/dL (5.8-8.1); Sodium 131 mmol/L (136-145)
[2020-10-09 09:01] LABS: #Eosinphils 0.1 thou/uL (0.0-0.7); #Lymphocytes 1.6 thou/uL (1.20-3.40); #Monocytes 1.1 thou/uL (0.11-0.59); %Basophils 0.2 % (0.0-1.0); %Eosinophils 0.7 % (0.0-10.0); %Monocytes 12.9 % (0.0-10.0); %Neutrophils 68.1 % (42.0-75.0); Hemoglobin 7.4 g/dL (12.0-16.0); Mean Corpuscular HGB CONC 30.8 g/dL (32.0-36.0); Mean Corpuscular Hemoglobin 26.3 pg (27.0-31.0); Mean Corpuscular Volume 85.5 fL (78.0-98.0); Mean Platelet Volume 14.2 fL (7.4-10.4); Platelet Count 25 thou/uL (130-400); RBC Distribution Width 15.3 % (11.5-14.5); Red Blood Cell (RBC) Count 2.83 mill/uL (4.20-5.40); White Blood Cell (WBC) Count 8.8 thou/uL (4.8-10.8)
[2020-10-09] MEDS: cefTRIAXone\\ROCEPHIN 2 GM in Sodium Chloride 0.9% 100 ML IVPB SCH (15:14)
--- NOTE | 2020-10-09 15:22 | PRG ---
DATE OF SERVICE: 10/09/2020 SUBJECTIVE: Patient was seen and examined at bedside and overnight events noted. Patient denies any shortness of breath or chest pain or palpitation. No history of nausea or vomiting or diarrhea or fever or chills or cramps. OBJECTIVE: GENERAL: This is a well-built female, in no apparent distress. VITAL SIGNS: Temperature 98.3. Heart rate 92. Respiratory rate 16. Blood pressure 131/84. HEENT: Atraumatic, normocephalic. Oral mucosa is moist. Neck: Supple. CARDIOVASCULAR: S1, S2 heard. Rate and rhythm regular. RESPIRATORY: Clear to auscultation. GASTROINTESTINAL: Abdomen is soft. MUSCULOSKELETAL: No tenderness. No edema. DERMATOLOGIC: No skin rash. NEUROLOGIC: Alert and awake and oriented x3. No focal neurologic deficits. Moving all the extremities. PSYCHIATRIC: Mood and affect normal. LABORATORY DATA: Potassium 3.8, BUN is 12, creatinine is 0.4, and sodium is 131. ASSESSMENT AND PLAN: 1. Hyponatremia. Sodium level, better. 2. Edema. 3. Hypertension. Sodium level is better. Continue fluid restriction. We will monitor. Job ID: [id number]
--- NOTE | 2020-10-09 15:27 | PRG ---
DATE OF SERVICE: 10/09/2020 SUBJECTIVE: Ms. Garcia is doing well. She has no complaints. She is eating well. Bowel function is good. 98.3 degrees, 92, 131/84. Her CT-guided drain only has put out 10 mL in the last 24 hours. She did receive platelet transfusion yesterday for a platelet count of 5000, this morning it is 25,000. White count 8, hemoglobin 7.4. 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 Dr. Kessler has seen her. Antibiotics restarted. Lovenox has been held. Pepcid discontinued. More likely, her thrombocytopenia is secondary to hypersplenism, cirrhosis, and her recent problem. OBJECTIVE: LUNGS: Clear to auscultation. CARDIAC: Regular rate and rhythm without murmur or gallop. ABDOMEN: Soft, nontender. CT scan drain, clear fluid. ASSESSMENT AND PLAN: Intraabdominal abscess, status post CT-guided drainage. Most likely, this is an infected hematoma. There is no evidence of fistula. We will repeat CAT scan to follow up the fluid collection. Perhaps we can remove her drain prior to discharge. We did previously have a CAT scan arranged as an outpatient before she developed thrombocytopenia delaying her discharge. If her thrombocytopenia stabilizes, she could be discharged. Job ID: [id number]
--- NOTE | 2020-10-09 16:33 | CON ---
DATE OF CONSULTATION: REASON FOR CONSULTATION: Thrombocytopenia. HISTORY OF PRESENT ILLNESS: Ms. Garcia is a 75-year-old female who was admitted in early September for bowel obstruction. She had surgery for a 9-cm cecal tumor, which was positive for adenocarcinoma. She was sent home, and returned to the emergency room on the with abscess. She underwent drainage and has been on antibiotics. On admission, her platelet count was 417,000. Yesterday, her platelets dropped to 5000. She was transfused 1 unit of platelets and today her platelets improved to 25,000. She has a normal white count and anemia of hemoglobin 7.4. She was seen at bedside and denies any complaints at this time. PAST MEDICAL HISTORY: 1. 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 2. Cirrhosis on CT scan. 3. Asthma. 4. COPD. PAST SURGICAL HISTORY: 1. Right colon resection. 2. Hysterectomy. 3. Cholecystectomy. 4. ORIF of the distal right radius. ALLERGIES: TO AMOXICILLIN, CODEINE, AND SULFA. CURRENT MEDICATIONS: 1. Tylenol. 2. Proventil. 3. Ceftriaxone. 4. Ativan. 5. Melatonin. 6. Reglan. 7. Metronidazole. 8. Protonix. 9. Ultram. FAMILY HISTORY: Noncontributory. SOCIAL HISTORY: . Former smoker. No alcohol use. REVIEW OF SYSTEMS: A 12-point review of systems is negative except for noted in HPI. PHYSICAL EXAMINATION: VITAL SIGNS: Temperature is 98.3, pulse is 92, respiratory rate 16, BP is 131/84, and she is 97% on room air. GENERAL: This is a well-developed, well-nourished female, in no acute distress. HEENT: Normocephalic and atraumatic. Pupils are equal and reactive to light. NECK: Supple. CV: Regular rate and rhythm. She has a 2/6 murmur. LUNGS: Clear anterior. ABDOMEN: Soft and nontender. She has a healing midline scar with a drainage tube in place. EXTREMITIES: No clubbing or cyanosis. SKIN: No rash. HEMATOLOGIC: No petechiae or purpura. NEUROLOGIC: Nonfocal. PERTINENT LABORATORY DATA AND X-RAYS: WBCs 8.8, hemoglobin 7.4, hematocrit 24.2, and platelet count is 25,000. She has 68% neutrophils and 18% lymphocytes. PT is 15.5, INR is 1.2, and PTT is 38.6. Sodium 131, potassium 3.8, chloride 99, CO2 is 27, BUN is 12, creatinine 0.46, and calcium 7.1. Bilirubin 0.6, AST is 44, ALT is 20, and alkaline phosphatase is 498. Serum total protein 5.3, albumin 2.1, and globulin 3.2. ASSESSMENT: 1. Severe thrombocytopenia. 2. Recently diagnosed colon cancer status post resection. 3. Liver cirrhosis. 4. Abdominal abscess status post drainage. DISCUSSION: The patient is improving after her abscess drainage and antibiotics. Review of her medications do not show any medications responsible for a drop in her platelet count. She has a prior history of borderline low platelets on previous admission. She has had an acute drop within several days with no evidence of heparin being administered in the past. She has been able to maintain her platelet count after transfusion, which rules out autoimmune thrombocytopenia. This is likely consumptive due to infection. The patient has had an appointment with Dr. England in the next week to discuss her cancer. We will follow up on her thrombocytopenia at that time as well. She has no evidence of bleeding. We will continue to just monitor her CBC daily. The case has been discussed with Dr. England and Dr. Tate. Thank you for the consult. Job ID: [id number]
--- NOTE | 2020-10-09 16:35 | CT ---
CT abdomen and pelvis noncontrast HISTORY: Abdominal abscess with drainage. Follow-up. COMPARISON: 10/02/2020. FINDINGS: The right lateral abdominal wall percutaneous drain is in place, with complete evacuation o f the multiloculated gas and fluid collection seen on the prior CT exam. Small to moderate amount of free fluid is scattered throughout the abdomen and pelvis, appearing to represent free fluid. No r esidual sequestered abscess is apparent. Cirrhotic appearance of the liver is again demonstrated. Dystrophic calcification involving the eliazar x of left kidney is stable. Postoperative changes of the colon again demonstrated. The sagittally oriented surgical defect involving the anterior midline abdomen above the level of the umbilicus shows slight enlargement of the associated fluid collection, measuring up to 9.6 cm length by 3.4 cm width by 1.9 cm depth on today's exam. There are 2 stable tiny pockets of gas.. No f ree intraperitoneal gas visible. IMPRESSION : Successful evacuation of the right abdominal abscess without residual fluid collection around the josé manuel in. Moderate amount of free fluid remains throughout the abdomen. Slight enlargement of the fluid collection (and tiny pockets of gas) associated with the supraumbilic al abdominal wall surgical defect. Correlate for inflammation/infection.
[2020-10-09] MEDS: Acetaminophen 500 MG TAB PO PRN (18:22)
[2020-10-09] MEDS: traMADol HCl 50 MG TAB PO PRN (18:23)
[2020-10-10] MEDS: metroNIDAZOLE 500 MG in Premix Bag 1 BAG IVPB SCH ×2 (06:26→16:06)
[2020-10-10 06:48] LABS: #Eosinphils 0.1 thou/uL (0.0-0.7); #Lymphocytes 1.7 thou/uL (1.20-3.40); #Monocytes 1.2 thou/uL (0.11-0.59); #Neutrophils 6.2 thou/uL (1.40-6.50); %Basophils 0.4 % (0.0-1.0); %Eosinophils 1.5 % (0.0-10.0); %Lymphocytes 18.6 % (21.0-51.0); %Neutrophils 66.6 % (42.0-75.0); Hemoglobin 8.4 g/dL (12.0-16.0); Mean Corpuscular HGB CONC 31.1 g/dL (32.0-36.0); Mean Corpuscular Hemoglobin 26.5 pg (27.0-31.0); Mean Corpuscular Volume 85.2 fL (78.0-98.0); Mean Platelet Volume 18.8 fL (7.4-10.4); Platelet Count 7 thou/uL (130-400); Platelet Morphology Comment Appears Decreased; Red Blood Cell (RBC) Count 3.18 mill/uL (4.20-5.40); White Blood Cell (WBC) Count 9.3 thou/uL (4.8-10.8)
[2020-10-10] MEDS ORDERED: Lidocaine 1% w/Epinephrine 1:100K 20 ML VIAL ONE (08:07)
[2020-10-10] MEDS: Polyethylene Glycol 3350 17 GM Packet PO SCH (09:20)
[2020-10-10] MEDS: traMADol HCl 50 MG TAB PO PRN ×2 (09:43→14:39)
--- NOTE | 2020-10-10 10:05 | PRG ---
DATE OF SERVICE: 10/10/2020 SUBJECTIVE: Polly Garcia is seen today, and she had a bowel movement this morning. GI function is good. She is eating well. She has not had any fevers. OBJECTIVE: VITAL SIGNS: Temperature 98.1 degrees, heart rate 85, blood pressure 125/78. LUNGS: Clear to auscultation. CARDIAC: Regular rate and rhythm without murmur or gallop. ABDOMEN: Soft, nontender. Percutaneous drain placed previously for right upper quadrant abdominal abscess, felt to be infected hematoma. Has only 10 mL drainage out in the last 24 hours. DIAGNOSTIC STUDIES: Repeat CAT scan last night revealed total resolution of this infected fluid collection in the right upper quadrant. The drain was removed today. When I removed the drain, she had ascitic fluid leaking around the drain. Also her CAT scan was noted to have the chronic changes of cirrhosis. The patient states this has been discussed with her in years past. The patient denies any history of alcohol intake and does not know of any past history of viral hepatitis. It is felt her cirrhosis is cryptogenic. Her coagulation studies have been essentially normal. She does have, on her CAT scan, perihepatic fluid, fluid in her gutters, diffuse abdominal fluid consistent with ascites, consistent with her cirrhosis, cryptogenic. Her preoperative CEA level was 10 prior to her right colon resection. I have reviewed her CAT scan with the radiologist, and it is felt the fluid collection generally in the abdominal cavity is due to her cirrhosis/ascites as none of it looks infected. The patient has does have fluid collection in her upper abdominal wound. I reviewed her abdominal wound today with Wound Care. She has a wound VAC and an open portion of the wound in the lower wound. It does tunnel up into the apex of the wound above the umbilicus, but there was no purulent drainage. Wound Care has been placing a Biofilm packing in this area. On the skin, there are no changes of infection. Under local anesthesia at the patient's bedside with wound care present, I did open her incision to slightly above the umbilicus to facilitate wound care. Again, the wound was reinspected. There is no evidence of infection. The patient's platelet count after transfusion yesterday is 7000. The patient's platelet count 2 days ago was 5000. She was given 1 pack of platelets. It was 25,000 yesterday and again 7000 today. It is felt her thrombocytopenia is due to her cirrhosis, portal hypertension, and although she does not have splenomegaly, she probably does have some splenic sequestration of her platelets. Currently, there is no have evidence of ongoing infection, and her white blood cell count is normal; her differential is normal. Dr. Kessler is seeing her. The medications that might have caused her thrombocytopenia have been discontinued. Pepcid has been discontinued; Lovenox discontinued. Oncology has seen her and she has a followup appointment for evaluation of her T3 N0 M0 cancer. There is no evidence of ongoing infection. At this point, we will observe her thrombocytopenia and when it is stabilized, she will be ready for discharge to the care facility. Job ID: [id number]
[2020-10-10] MEDS: Acetaminophen 500 MG TAB PO PRN (11:33)
--- NOTE | 2020-10-10 13:59 | OP ---
DATE OF PROCEDURE: 10/10/2020 PREOPERATIVE DIAGNOSES: Thrombocytopenia; cryptogenic cirrhosis; small open focus of wound infraumbilical from incision periumbilical with CAT scan demonstrating questionable fluid, space, and air in the subcutaneous tissues above the umbilicus, beneath the midline incision. ANESTHESIA: 1% Xylocaine with epinephrine. PROCEDURE PERFORMED: Incision and drainage of wound. DESCRIPTION OF PROCEDURE: With the patient at bedside, incision cleansed with alcohol. Local anesthetic infiltrated in the skin and subcutaneous tissue, and the wound opened superiorly about the umbilicus about 3 cm, unroofing the open tunnel. This was performed to facilitate wound care. Wound Care present, placed a wound VAC with white foam superiorly. There was no evidence of infection superiorly. The skin was not red and she was not febrile. Her white count was normal. The air seen on CAT scan was just from the open wound below. This wound is open adequately for wound care with wound VAC. Job ID: [id number]
[2020-10-10] MEDS: cefTRIAXone\\ROCEPHIN 2 GM in Sodium Chloride 0.9% 100 ML IVPB SCH (14:24)
--- NOTE | 2020-10-10 15:51 | PRG ---
DATE OF SERVICE: 10/10/2020 SUBJECTIVE: Ms. Garcia is relatively well. She had some bleeding in the midline wound, wound VAC was kept beeping, so had to be removed and she has a wet-to-dry packing there in place until the bleeding stops. Looks like she had some I and D by Dr. Tate at bedside. There is some fluid collection there in the midline. The drain has been removed and there was some serous drainage through the wound and so an ostomy bag was placed to collect that fluid. Does not appear in distress. She ate breakfast. Denies any respiratory symptoms. No abdominal pain. Able to move extremities. OBJECTIVE: VITAL SIGNS: Her temperature has been normal, BP 109/70, heart rate is 111, respiratory rate 18, O2 saturation 97% on room air. GENERAL: Does not appear in distress, oriented. LUNGS: Clear to auscultation and percussion. HEART: S1, S2. Regular rate. ABDOMEN: With a midline packing and a little drainage site where the percutaneous drainage had been placed. LABORATORY DATA: White cell count is 9.3, hemoglobin 8.4, platelets 7000, 66% neutrophils, and creatinine 0.46. Phosphorus is 2.1, AST is 44, and alkaline phosphatase 498. Microbiology with Klebsiella oxytoca, which is pansensitive and strep anginosus group. ASSESSMENT AND DISCUSSION: Chronic obstructive lung disease, liver cirrhosis, cecal adenocarcinoma, which was diagnosed after 3 episodes of small bowel obstruction, stages T3 N0. No apparent metastasis. She developed an intraperitoneal abscess identified following discharge subsequent to the resection. No leakage is apparent. She also has developed severe thrombocytopenia and at this point in time due to recurrence, we will have to discontinue Rocephin and Flagyl and switch her to Merrem. She only got one dose of meropenem and both Rocephin and Flagyl have been described in association with thrombocytopenia. She was seen by Hem/Onc is to follow up thrombocytopenia when she sees Dr. England, but I think right now I am going to switch her to Merrem because things are recrudescing after an initial impression that it was going to resolve. Job ID: [id number] MTDD
--- NOTE | 2020-10-10 16:31 | PDOC.MOPN ---
Interval History: feels ok. bleeding with dressing change today. - Vital Signs Vital Signs: Vital Signs (12 hours) Temp Pulse Pulse Resp BP BP Pulse Ox 10/10/20 15:18 98.2 F 107 H 16 126/77 97 10/10/20 14:00 98.6 F 106 H 18 109/70 97 10/10/20 12:55 98.3 F 104 H 16 113/71 98 10/10/20 12:37 98.3 F 109 H 16 101/65 96 10/10/20 11:23 98.0 F 111 H 16 135/82 97 10/10/20 08:00 97 10/10/20 07:28 98.1 F 101 H 16 125/78 97 Weight Admit Weight 146 lb 3.2 oz Weight 146 lb 3.2 oz - Physical Exam General: Alert, Oriented x3, No acute distress HEENT: Atraumatic, PERRLA, EOMI, Mucous membr. moist/pink Lungs: Clear to auscultation Cardiovascular: Regular rate Abdomen: Other Neurological: Normal speech - Labs Result Diagrams: 10/10/20 05:50 10/09/20 05:15 Lab results: Laboratory Results - last 24 hr 10/10/20 05:50: WBC 9.3, RBC 3.18 L, Hgb 8.4 L, Hct 27.1 L, MCV 85.2, MCH 26.5 L, MCHC 31.1 L, RDW 15.0 H, Plt Count 7 L*, MPV 18.8 H, Neutrophils % 66.6, Lymphocytes % 18.6 L, Monocytes % 13.0 H, Eosinophils % 1.5, Basophils % 0.4, Neutrophils # 6.2, Lymphocytes # 1.7, Monocytes # 1.2 H, Eosinophils # 0.1, Basophils # 0.0, Plt Morphology Comment Appears Decreased L 10/08/20 18:20: Blood Type A POSITIVE, Antibody Screen NEGATIVE Status: lab reviewed by me A/P - Problem (1) Other secondary thrombocytopenia Current Visit: Yes Code(s): D69.59 - OTHER SECONDARY THROMBOCYTOPENIA Status: Acute (2) SBO (small bowel obstruction) Current Visit: No Code(s): K56.609 - UNSP INTESTNL OBST, UNSP TO PARTIAL VERSUS COMPLETE OBST Status: Acute - Plan Plan: agree with platelet transfusion today. Recommend transfusion for platelets < 15 and bleeding daily CBC will follow along
[2020-10-10] MEDS: MEROPENEM 1 GM/50 ML 1 GM in Premix Bag 1 BAG IVPB SCH ×2 (17:32→23:31)
--- NOTE | 2020-10-10 18:58 | PRG ---
DATE OF SERVICE: 10/10/2020 SUBJECTIVE: Patient was seen and examined at bedside and overnight events noted. Patient denies any shortness of breath or chest pain or palpitation. No history of nausea or vomiting or diarrhea or fever or chills or cramps. OBJECTIVE: GENERAL: This is a well-built female, in no apparent distress. VITAL SIGNS: Temperature 98.2. Heart rate 107. Respiratory rate 16. Blood pressure 126/77. HEENT: Atraumatic, normocephalic. Oral mucosa is moist NECK: Supple. CARDIOVASCULAR: S1, S2 heard. Rate and rhythm regular. RESPIRATORY: Clear to auscultation. GASTROINTESTINAL: Abdomen is soft. MUSCULOSKELETAL: No tenderness. No edema. DERMATOLOGIC: No skin rash. NEUROLOGIC: Alert and awake and oriented X3. No focal neurologic deficits. Moving all the extremities. PSYCHIATRIC: Mood and affect normal. LABORATORY DATA: Sodium 131, potassium 3.8, BUN is 12, creatinine 0.4. ASSESSMENT AND PLAN: 1. Hyponatremia. Sodium level is stable. We will recheck labs in the morning. 2. Edema, controlled. 3. History of hypertension. 4. Chronic kidney disease, stage 2. We will continue to monitor. Job ID: [id number]
[2020-10-11 05:32] LABS: Anion Gap 12 mmol/L (10-20); BUN (Urea Nitrogen) 14 mg/dL (9.8-20.1); CRP (Inflammatory) 4.56 mg/dL (= or < 0.5); Calc. Creatinine Clearance 108 mL/min (70-130); Calcium 7.4 mg/dL (7.8-10.44); Carbon Dioxide 25 mmol/L (23-31); Chloride 101 mmol/L (98-107); Glucose 147 mg/dL (83-110); Potassium 4.2 mmol/L (3.5-5.1); Sodium 134 mmol/L (136-145)
[2020-10-11 05:51] LABS: Hep B Core Total Ab Non-Reactive (NonReactive); Hep B Core Total Index 0.12 S/CO (0-0.79)
[2020-10-11 05:52] LABS: HBSAB Concentration Less than 8.00 mIU/mL; HBSAg Index 0.18 S/CO (0-0.99); Hep B Surf AB Non-Reactive (NonReactive); Hep B Surf Ag Non-Reactive S/CO (NonReactive); Hep C IgG Ab Non-Reactive (NonReactive)
[2020-10-11 05:55] LABS: Hep A IgM AB Non-Reactive (NonReactive); Hep A IgM S/CO 0.15 S/CO (0-0.79)
[2020-10-11 05:56] LABS: HBCM Index 0.06 S/CO (0-0.79); Hepatitis B Core IgM Abs Non-Reactive (NonReactive)
[2020-10-11 06:12] LABS: CEA, Serum 2.19 ng/mL (< or = 5.0)
[2020-10-11 06:16] LABS: #Eosinphils 0.1 thou/uL (0.0-0.7); #Lymphocytes 1.1 thou/uL (1.20-3.40); #Monocytes 0.9 thou/uL (0.11-0.59); #Neutrophils 6.3 thou/uL (1.40-6.50); %Basophils 0.4 % (0.0-1.0); %Eosinophils 0.7 % (0.0-10.0); %Lymphocytes 13.5 % (21.0-51.0); %Monocytes 10.5 % (0.0-10.0); Hemoglobin 7.1 g/dL (12.0-16.0); Mean Corpuscular HGB CONC 30.2 g/dL (32.0-36.0); Mean Corpuscular Volume 85.9 fL (78.0-98.0); Mean Platelet Volume 13.8 fL (7.4-10.4); Platelet Count 36 thou/uL (130-400); RBC Distribution Width 14.9 % (11.5-14.5); Red Blood Cell (RBC) Count 2.75 mill/uL (4.20-5.40); White Blood Cell (WBC) Count 8.4 thou/uL (4.8-10.8)
[2020-10-11] MEDS: MEROPENEM 1 GM/50 ML 1 GM in Premix Bag 1 BAG IVPB SCH ×2 (08:27→15:27)
[2020-10-11] MEDS: Polyethylene Glycol 3350 17 GM Packet PO SCH (08:50)
[2020-10-11] MEDS: Ondansetron PF 4 MG/2 ML Vial IVP PRN (09:53)
[2020-10-11] MEDS: traMADol HCl 50 MG TAB PO PRN (11:48)
--- NOTE | 2020-10-11 15:56 | PRG ---
DATE OF SERVICE: 10/11/2020 SUBJECTIVE: Patient was seen and examined at bedside and overnight events noted. Patient denies any shortness of breath or chest pain or palpitation. No history of nausea or vomiting or diarrhea or fever or chills or cramps. OBJECTIVE: GENERAL: This is a well-built female, in no apparent distress. VITAL SIGNS: Temperature 97.9. Heart rate 103. Respiratory rate 16. Blood pressure 120/67. HEENT: Atraumatic, normocephalic. Oral mucosa is moist. NECK: Supple. CARDIOVASCULAR: S1, S2 heard. Rate and rhythm regular. RESPIRATORY: Clear to auscultation. GASTROINTESTINAL: Abdomen is soft. MUSCULOSKELETAL: No tenderness. No edema. DERMATOLOGIC: No skin rash. NEUROLOGIC: Alert and awake and oriented x3. No focal neurologic deficits. Moving all the extremities. PSYCHIATRIC: Mood and affect normal. LABORATORY DATA: Sodium 134, creatinine is 0.4. ASSESSMENT AND PLAN: 1. Hyponatremia, much better. 2. Edema, controlled. 3. History of hypertension. 4. Chronic kidney disease, stage 2. Sodium level much better. We will monitor. Job ID: [id number]
--- NOTE | 2020-10-11 17:16 | PRG ---
DATE OF SERVICE: 10/11/2020 SUBJECTIVE: Ms. Garcia is doing well. She has had a bowel movement. She has passed gas. She does not have any new complaints. 98.4 degrees, 94, 16, 117/65. This morning, her hemoglobin is 7.1, white count 8, platelet count 36,000. OBJECTIVE: LUNGS: Clear to auscultation. CARDIAC: Regular rate and rhythm without murmur or gallop. ABDOMEN: Soft, nontender. EXTREMITIES: Without edema. ASSESSMENT AND PLAN: Thrombocytopenia, probably secondary to her cirrhosis. This is a cryptogenic cirrhosis. There is no history of alcohol consumption. Her hepatitis profile is negative with hepatitis B surface antibody index present. The patient has been told in the past that she has had cirrhosis, but the etiology is unknown. At this point, her platelet count seems to be stabilized. If it remains stable overnight on recheck on Wednesday morning, in the morning then she could be transferred to [facility], where she has been accepted. She is on a regular diet. She is having very little pain. Her percutaneous drains have been removed. She does have some ascites fluid, but I have personally reviewed her CAT scan with Radiology and there is no evidence of infected fluid. In addition, the patient has an open lower abdominal midline wound, being treated with wound VAC. It does track cephalad. This was opened slightly to facilitate wound care yesterday. There is no evidence of purulent collection. On her CAT scan, there was noted to be some question of fluid and air, but on inspection of wound, this is just tracking subcutaneous tissue cephalad and the wound has been partially opened at the bedside yesterday to facilitate wound care and there is no evidence of any further infection. The patient should be able to be discharged home tomorrow, Wednesday, and follow up with me in my office in 2 to 3 weeks. Job ID: [id number]
[2020-10-11] MEDS ORDERED: traMADol HCl 50 MG TAB PO PRN (20:19)
[2020-10-11] MEDS: metroNIDAZOLE 500 MG TAB PO SCH (21:00)
[2020-10-11] MEDS: Ciprofloxacin 500 MG TAB PO SCH (21:00)
[2020-10-12] MEDS: Ciprofloxacin 500 MG TAB PO SCH (05:39)
[2020-10-12] MEDS: metroNIDAZOLE 500 MG TAB PO SCH ×2 (08:25→15:11)
[2020-10-12] MEDS: Polyethylene Glycol 3350 17 GM Packet PO SCH (08:25)
[2020-10-12 09:07] LABS: #Basophils 0.1 thou/uL (0.0-0.2); #Eosinphils 0.1 thou/uL (0.0-0.7); #Lymphocytes 1.3 thou/uL (1.20-3.40); #Monocytes 0.9 thou/uL (0.11-0.59); #Neutrophils 6.3 thou/uL (1.40-6.50); %Basophils 0.8 % (0.0-1.0); %Eosinophils 0.6 % (0.0-10.0); %Lymphocytes 14.9 % (21.0-51.0); %Monocytes 10.7 % (0.0-10.0); Hemoglobin 7.3 g/dL (12.0-16.0); Mean Corpuscular HGB CONC 31.6 g/dL (32.0-36.0); Mean Corpuscular Hemoglobin 27.6 pg (27.0-31.0); Mean Corpuscular Volume 87.1 fL (78.0-98.0); Mean Platelet Volume 14.4 fL (7.4-10.4); Platelet Count 31 thou/uL (130-400); RBC Distribution Width 14.7 % (11.5-14.5); Red Blood Cell (RBC) Count 2.65 mill/uL (4.20-5.40); White Blood Cell (WBC) Count 8.6 thou/uL (4.8-10.8)
--- NOTE | 2020-10-12 09:39 | PDOC.GSPN ---
Surgery Progress Note: Subj - Subjective Narrative: The patient is very energetic this morning. She states that she is feeling well and is ready for the next step in her recovery. She is tolerating her diet. Pain is well controlled. Feels that she is "on the mend". Surgery Progress Note: Obj - Vital signs Vital signs: Vital Signs - Most Recent Temp Pulse Resp BP Pulse Ox 98.5 F 104 H 18 115/67 96 10/12/20 07:34 10/12/20 07:34 10/12/20 07:34 10/12/20 07:34 10/12/20 07:34 - Physical Exam Additional exam: General-[no acute distress, well-nourished] Head-[normocephalic, atraumatic] HEENT- [EOMI], [PERRLA] Neck-[trachea midline, supple] Lungs-[grossly clear to auscultation], [normal air movement] Heart-[regular regular], [no murmurs] Abdomen-[soft], [nondistended], appropriately tender, [normal active bowel sounds], wound VAC is in place Musculosketal-[full range of motion], [no gross deformity] Psychiatric-[good insight, good judgment] Skin-[good turgor, no jaundice] Neuro- [GCS 15], [CN II-XII intact] Surgery Progress Note: Results - Labs Result Diagrams: 10/12/20 08:51 10/11/20 04:56 Lab results: Laboratory Results - last 12 hr 10/12/20 08:51 WBC 8.6 RBC 2.65 L Hgb 7.3 L Hct 23.1 L MCV 87.1 MCH 27.6 MCHC 31.6 L RDW 14.7 H Plt Count 31 L MPV 14.4 H Neutrophils % 73.0 Lymphocytes % 14.9 L Monocytes % 10.7 H Eosinophils % 0.6 Basophils % 0.8 Neutrophils # 6.3 Lymphocytes # 1.3 Monocytes # 0.9 H Eosinophils # 0.1 Basophils # 0.1 Surgery Progress Note: A/P - Problem (1) Intra-abdominal abscess post-procedure Current Visit: Yes Code(s): T81.43XA - INFCT FOL A PROCEDURE, ORGAN AND SPACE SURGICAL SITE, INIT Status: Acute - Plan Plan: The patient is very energetic this morning. She is smiling and ready for discharge. Her platelets are stable from yesterday. Her hemoglobin has been stable. I think she is safe for transfer today.
--- NOTE | 2020-10-12 11:56 | PRG ---
DATE OF SERVICE: 10/12/2020 SUBJECTIVE: Patient was seen and examined at bedside and overnight events noted. Patient denies any shortness of breath or chest pain or palpitation. No history of nausea or vomiting or diarrhea or fever or chills or cramps. OBJECTIVE: GENERAL: This is well-built female, in no apparent distress. VITAL SIGNS: Temperature 98.5. Heart Rate 104. Respiratory rate 18. Blood pressure 115/67. HEENT: Atraumatic, normocephalic. Oral mucosa is moist. NECK: Supple. CARDIOVASCULAR: S1, S2 heard. Rate and rhythm regular. RESPIRATORY: Clear to auscultation. GASTROINTESTINAL: Abdomen is soft. MUSCULOSKELETAL: No tenderness. No edema. DERMATOLOGIC: No skin rash. NEUROLOGIC: Alert and awake and oriented x3. No focal neurologic deficits. Moving all the extremities. PSYCHIATRIC: Mood and affect normal. LABORATORY DATA: Potassium 4.2, BUN is 14, creatinine is 0.4, sodium is 134. ASSESSMENT AND PLAN: 1. Hyponatremia, better. 2. Edema. 3. History of hypertension. 4. Chronic kidney disease, stage 2. Labs are better. I will sign off. Please call back with any questions. Job ID: [id number]
[2020-10-12 16:26] VITALS: BP 131/66; TEMP 98.4
--- NOTE | 2020-10-15 13:50 | DIS ---
DATE OF ADMISSION: 10/01/2020 DATE OF DISCHARGE: 10/12/2020 HISTORY: A 75-year-old female with cryptogenic cirrhosis, status post T3 N0 M0 right colon cancer, 09/15/2020, colonoscopy. Dr. Puentes noted a large cecal tumor causing a partial bowel obstruction. CEA level was 10. Preop hemoglobin 12. The patient was sent by [facility] to the emergency room. The lower wound was opened slightly and draining when I saw her in the emergency room. Wound Care was consulted during this hospitalization and wound VAC care initiated. CAT scan revealed a right subhepatic fluid collection that seems separate from the ileocolic anastomosis. The patient underwent CT-guided drainage on 10/02/2020. Cultures reveal Klebsiella and Streptococcus. The patient was kept on intravenous antibiotics, changed to oral antibiotics and she tolerated her diet. Plan was to discharge home with outpatient followup, but she developed thrombocytopenia. Her platelet count fell to 5000. She was treated with platelet transfusion, next day was up to 7000. She was given another transfusion. Her platelet count remained stable after that and on discharge, her platelet count was 31,000. She was discharged home on 10/12/2020. We will follow up in my office in the next 2 to 3 weeks. Outpatient wound VAC is arranged. The drain had been removed prior to discharge. There were no other fluid collections. She did have some fluid probably secondary to ascites relative to her cirrhosis, but no other suspicious fluid collections. White count was 8.6, remained afebrile, tolerating diet, having bowel movements. She is discharged home on her home medications: 1. Iron. 2. Ventolin inhaler p.r.n. 3. Omeprazole. 4. Lorazepam. 5. Tramadol. 6. Metronidazole. 7. Polyethylene. 8. Lorazepam. 9. Cipro. 10. Tylenol No. 3. Job ID: [id number]
--- NOTE | 2020-10-16 05:11 | PQF ---
CLINICAL DOCUMENTATION CLARIFICATION FORM: Dear : Mohit Tate Date / Time: 10/16/2020 05 Please exercise your independent, professional judgment in responding to the clarification form. Clinical indicators are provided on the bottom of this form for your review In your clinical opinion based on clinical finding below, can you please specify the surgical approach of I&D if: [ ] Percutaneous [x ] Open [ ] Other procedure, please specify: [ ] Unable to determine Physician Signature: Date/Time: For continuity of documentation, please document condition throughout progress notes and discharge summary. Thank You. To be completed by CDI/Coding staff for physician review: Present Clinical Indicators - Signs / Symptoms / Labs Results and Location in Medical Record [x] Local anesthetic infiltrated in the Sign and subcutaneous tissue, and the wound opened superiorly about the umbilicus about 3 cm, unroofing the open tunnel. Operative report 10/10 Dr Tate [x] This was performed to facilitate wound care. Wound Care present, placed a wound VAC with white foam superiorly. Operative report 10/10 Dr Tate Present Risk Factors Results and Location in Medical Record [x] Small open focus of wound infraumbilical form incision periumbilical Operative report 10/10 Dr Tate [x] Air in the subcutaneous tissue above the umbilicus Operative report 10/10 Dr Tate Present Treatments Results and Location in Medical Record [x] Incision and drainage of wound Operative report 10/10 Dr Tate CDS/[employer]ist Signature: Reina Fongpolly Phone #: [phone] Date/Time: 10/16/20509 This is a permanent part of the Medical Record [facility]
== END 2020-10-12 17:16 | DRG 856 ==
LOC: ERS 14:23 → SJJU 19:44
PROVIDERS: ADMIT Specialist; ATTEND Specialist
PROC: 0D9W30Z Drainage of Peritoneum with Drainage Device, Percutaneous Approach (ICD-10-PCS; principal; 2020-10-03)
PROC: 30233N1 Transfusion of Nonautologous Red Blood Cells into Peripheral Vein, Percutaneous Approach (ICD-10-PCS; 2020-10-08)
PROC: 0J980ZZ Drainage of Abdomen Subcutaneous Tissue and Fascia, Open Approach (ICD-10-PCS; 2020-10-10)
DX: T81.43XA Infection following a procedure, organ and space surgical site, initial encounter (principal); K65.1 Peritoneal abscess; E87.1 Hypo-osmolality and hyponatremia; C18.0 Malignant neoplasm of cecum; K91.870 Postprocedural hematoma of a digestive system organ or structure following a digestive system procedure; Z20.822 Contact with and (suspected) exposure to COVID-19; Y83.6 Removal of other organ (partial) (total) as the cause of abnormal reaction of the patient, or of later complication, without mention of misadventure at the time of the procedure; K21.9 Gastro-esophageal reflux disease without esophagitis; J44.9 Chronic obstructive pulmonary disease, unspecified; F41.9 Anxiety disorder, unspecified; K74.60 Unspecified cirrhosis of liver; D63.1 Anemia in chronic kidney disease; E88.09 Other disorders of plasma-protein metabolism, not elsewhere classified; I12.9 Hypertensive chronic kidney disease with stage 1 through stage 4 chronic kidney disease, or unspecified chronic kidney disease; N18.2 Chronic kidney disease, stage 2 (mild); D69.59 Other secondary thrombocytopenia; Z90.710 Acquired absence of both cervix and uterus; Z90.49 Acquired absence of other specified parts of digestive tract; Z87.891 Personal history of nicotine dependence; Z88.1 Allergy status to other antibiotic agents; Z88.5 Allergy status to narcotic agent; Z88.2 Allergy status to sulfonamides; Z79.899 Other long term (current) drug therapy
CPT/HCPCS: 36415; 36416; 36430; 49020; 71045; 74176; 74177; 77002; 80048; 80053; 80069; 80074; 82378; 83605; 83690; 83735; 83930; 83935; 84100; 84300; 85025; 85610; 85730; 86140; 86704; 86706; 86709; 86803; 86850; 86900; 86901; 87040; 87070; 87077; 87186; 87205; 87340; 96365; C1729; J0696; J1650; J1956; J2185; J2270; J2405; J2765; J3010; J3490; J7050; P9035; Q9967

== ENCOUNTER 2020-10-15 08:25 | Outpatient (CLI) | payer MEDICARE, OTHER ==
--- NOTE | 2020-10-15 09:32 | CT ---
CT Abdomen Pelvis WO Con History: Cirrhosis Comparison: Abdomen pelvis CT October 09, 2020 Findings: Low-grade atelectatic changes in the lung bases. Trace pleural effusions. Moderate-large volume ascites. Hepatic cirrhosis. Wound VAC along the midline abdomen near the umbilicus is again appreciated. Superior to the wound VA C is a size decreasing fluid and gas containing collection along the linea alba between the rectus musculature now measuring 3 cm in transverse with an AP dimension of 9 mm and a craniocaudal dimensio n of 6 cm. Likely a small communication with the umbilicus wound VAC. The midline collection is not definitively communicate with bowel. No dilated loops of large or small bowel. No evidence for bowel obstruction. Spleen is not enlarged. Small splenule is noted. Intraparenchymal calcifications left kidney are similar. No hydroureteronephrosis. The aortic contour is nonaneurysmal. The intra-abdominal right hemiabdomen fluid collection procedure and was within is completely resolve d. The small collection which was just caudal to the drain continues to decrease in size with no longer a pelvic communication and only measures 3 cm in transverse with an AP dimension of 3.5 cm and a craniocaudal dimension of 5.2 cm. Impression: 1. Continued size decrease of the right intra-abdominal fluid collection which was just caudal to the drain and there is no longer extension of inflammatory fluid into the pelvis. The collection for which the drain was within has completely resolved. 2. Interval size decrease of the superficial midline fluid and gas containing collection along the li michelle alba between the rectus musculature which likely is a small tract to the wound VAC.
== END 2020-10-15 08:26 | disposition home or self-care (01) ==
LOC: CT 08:25
PROVIDERS: ATTEND Specialist
DX: K65.1 Peritoneal abscess (principal)
CPT/HCPCS: 74176

== ENCOUNTER 2021-04-09 07:39 | Day surgery (SDC) | payer MEDICARE, OTHER ==
[2021-04-08 10:54] VITALS: BMI 22.1
[2021-04-09] MEDS ORDERED: Ketorolac Tromethamine 30 MG/ML VIAL ONE (07:55)
[2021-04-09] MEDS ORDERED: Acetaminophen 500 MG TAB ONE (07:55)
[2021-04-09] MEDS ORDERED: EPINEPHrine 1 MG/ML AMP ONE (07:55)
[2021-04-09] MEDS ORDERED: Bupivacaine 0.25% HCL 30 ML VIAL ONE (07:55)
[2021-04-09] MEDS ORDERED: Levofloxacin 500 mg/D5W 100 ml Premix Bag ONE (07:55)
[2021-04-09] MEDS ORDERED: Gabapentin 300 MG CAP ONE (07:55)
[2021-04-09] MEDS ORDERED: Fentanyl 100 MCG/2 ML VIAL ONE ×2 (10:32→13:39)
[2021-04-09] MEDS ORDERED: ePHEDrine 50 MG/ML VIAL ONE (10:40)
[2021-04-09] MEDS ORDERED: Glycopyrrolate 0.2 MG/ML 5 ML SYRINGE ONE (10:40)
[2021-04-09] MEDS ORDERED: Dexamethasone 20 MG/5 ML VIAL ONE (10:40)
[2021-04-09] MEDS ORDERED: Ondansetron PF 4 MG/2 ML Vial ONE (10:40)
[2021-04-09] MEDS ORDERED: Rocuronium Bromide 10 MG/ML (10ML VIAL) ONE (10:40)
[2021-04-09] MEDS ORDERED: PROPOFOL 200 MG/20 ML VIAL ONE (10:40)
[2021-04-09] MEDS ORDERED: Lidocaine 1% PF 5 ML VIAL ONE (10:40)
[2021-04-09] MEDS ORDERED: PHENYLEPHRINE-NS 100 MCG/ML 10 ML SYRINGE ONE (10:40)
[2021-04-09] MEDS ORDERED: Promethazine HCl 25 MG/ML VIAL ONE (14:58)
[2021-04-09] MEDS ORDERED: HYDROcodone/Acetaminophen 5/325 mg Tablet ONE ×2 (16:56→17:55)
== END 2021-04-09 18:39 | disposition home or self-care (01) ==
LOC: SDC 07:39
PROVIDERS: ATTEND Specialist
PROC: 0WUF4JZ Supplement Abdominal Wall with Synthetic Substitute, Percutaneous Endoscopic Approach (ICD-10-PCS; principal; 2021-04-09)
DX: K43.2 Incisional hernia without obstruction or gangrene (principal); K74.60 Unspecified cirrhosis of liver; K66.0 Peritoneal adhesions (postprocedural) (postinfection); K21.9 Gastro-esophageal reflux disease without esophagitis; Z85.038 Personal history of other malignant neoplasm of large intestine; Z87.891 Personal history of nicotine dependence; Z79.899 Other long term (current) drug therapy; Z88.0 Allergy status to penicillin; Z88.2 Allergy status to sulfonamides; Z88.5 Allergy status to narcotic agent; Z90.49 Acquired absence of other specified parts of digestive tract
CPT/HCPCS: J0171; J1100; J1885; J1956; J2405; J2550; J2704; J3010; J3490; S0020

== ENCOUNTER 2021-06-05 10:16 | Outpatient (CLI) | payer MEDICARE, OTHER | END 2021-06-05 10:17 | disposition home or self-care (01) | LOC: BICCT 10:16 | PROVIDERS: ATTEND Internal Medicine Hematology & Oncology | DX: C18.0 Malignant neoplasm of cecum (principal); N28.1 Cyst of kidney, acquired; K74.60 Unspecified cirrhosis of liver; K57.30 Diverticulosis of large intestine without perforation or abscess without bleeding; R18.8 Other ascites; Z98.0 Intestinal bypass and anastomosis status | CPT/HCPCS: 71260; 74177; 82565 ==

== ENCOUNTER 2022-06-16 08:58 | Outpatient (CLI) | payer MEDICARE, OTHER ==
[2022-06-16] MEDS ORDERED: Iopamidol 370 76% 50 ML VIAL FS ONE (13:51)
== END 2022-06-16 08:59 | disposition home or self-care (01) ==
LOC: BICCT 08:58
PROVIDERS: ATTEND Internal Medicine Hematology & Oncology
DX: C18.9 Malignant neoplasm of colon, unspecified (principal); C18.0 Malignant neoplasm of cecum; D69.59 Other secondary thrombocytopenia; K74.60 Unspecified cirrhosis of liver; D73.89 Other diseases of spleen; Z87.81 Personal history of (healed) traumatic fracture; Z90.49 Acquired absence of other specified parts of digestive tract
CPT/HCPCS: 71260; 74177; Q9967

== ENCOUNTER 2022-08-13 07:08 | Outpatient (CLI) | payer MEDICARE, OTHER ==
[2022-08-13] MEDS ORDERED: Iopamidol-370 76% 500 ML 1 ML ONE (15:49)
== END 2022-08-13 07:09 | disposition home or self-care (01) ==
LOC: BICCT 07:08
PROVIDERS: ATTEND Internal Medicine Hematology & Oncology
DX: C18.9 Malignant neoplasm of colon, unspecified (principal); D69.59 Other secondary thrombocytopenia; K74.60 Unspecified cirrhosis of liver; R77.2 Abnormality of alphafetoprotein
CPT/HCPCS: 71260; 74177; 82565; Q9967

== ENCOUNTER 2022-09-22 07:35 | Outpatient (CLI) | payer MEDICARE, OTHER ==
[2022-09-22] MEDS ORDERED: Iopamidol-370 76% 500 ML 1 ML ONE (12:52)
== END 2022-09-22 07:36 | disposition home or self-care (01) ==
LOC: BICCT 07:35
PROVIDERS: ATTEND Physician Assistant Medical
DX: K74.60 Unspecified cirrhosis of liver (principal); R77.2 Abnormality of alphafetoprotein; K76.9 Liver disease, unspecified
CPT/HCPCS: 74170; 82565; Q9967